=== PATIENT | female | born 1990 | race Caucasian/White ===

== ENCOUNTER → 2018-06-23 | Outpatient (CLI) | payer OTHER ==
[~2018-06-23] MED LIST: CALC-5 PO; PRENTAB26 PO; PRLSR20 PO
[2018-06-23 14:44] LABS: BASO % 0.2 %; BASO ABS # 0.02 K/uL (0-0.2); EOS % 1.6 %; EOS ABS # 0.14 K/uL (0-0.5); HEMATOCRIT 34.3 % (37-47); HEMOGLOBIN 10.9 g/dL (12.0-16.0); IG# 0.02 K/uL (0.00-0.02); LYMPH % 23.7 %; LYMPH ABS # 2.09 K/uL (1.2-3.4); MEAN CELL VOLUME 81.1 fL (80-100); MEAN CORPUSCULAR HEMOGLOBIN 25.8 pg (25-34); MONO % 5.2 %; MONO ABS # 0.46 K/uL (0.11-0.59); NEUT % 69.1 %; PLATELET COUNT 293 K/uL (130-400); RED CELL DISTRIBUTION WIDTH CV 26.5 % (11.5-14.5); RED CELL DISTRIBUTION WIDTH SD 73.3 fL (36.4-46.3); WHITE BLOOD COUNT 8.83 K/uL (4.8-10.8)
[2018-06-23 15:01] LABS: MEAN CORPUSCULAR HGB CONC 31.8 g/dl (32-36)
== END | disposition home or self-care (01) ==
LOC: C.LAB 14:22
PROVIDERS: ATTEND Internal Medicine Hematology
DX: D50.9 Iron deficiency anemia, unspecified (principal); E53.8 Deficiency of other specified B group vitamins

== ENCOUNTER 2024-07-15 05:31 | Inpatient (IN) ==
--- NOTE | 2024-07-09 10:35 | Anesthesiology Consultation ---
Date of Service July 09, 2024 Assessment & Plan (1) Encounter for pre-operative examination: Infectious disease screening: Per assessment on 07/09/24: No known recent infectious disease contacts or current infectious disease symptoms. Chart Review Chart Review: investigator operator initiated History Surgery Operation Date: 07/15/24 07:30 Proposed Procedures p Repeat Section, - Horacio Martin MD s With Bilateral Tubal Ligation - Horacio Martin MD Height/Weight Height: 5 ft 2 in Weight: 122.016 kg Allergies Allergy/AdvReac Type Severity Reaction Status Date / Time adhesive tape Allergy Severe Verified 07/09/24 09:40 tape caused blisters No Known Drug Allergies Allergy Verified 07/09/24 09:40 Medications Home Medications Medication Instructions Recorded Confirmed Last Taken omeprazole magnesium 20 mg 20 mg PO DAILY PRN Acid Reflux 07/15/18 07/09/24 Unknown tablet,delayed release (Prilosec OTC) pediatric multivitamin no.76 1 tab PO QAM 12/04/19 07/09/24 Unknown (Flintstones Complete chewable tablet) phentermine 15 mg capsule 30 mg (2 x 15 mg) PO DAILY #60 caps 02/19/23 07/09/24 Unknown cholecalciferol (vitamin D3) 1,250 1,250 mcg PO .COMPLEX #48 caps 04/17/23 07/09/24 Unknown mcg (50,000 unit) capsule levothyroxine 125 mcg tablet 125 mcg PO QAM 07/09/24 07/09/24 Unknown Past Medical History Medical History (Updated 07/09/24 @ 10:34 by Estela Martinez) GERD (gastroesophageal reflux disease) Rare, Prilosec PRN History of COVID-19 2020: headache and fatigue > resolved Hypothyroidism Iron deficiency anemia Last iron infusion 06/22/24 ([facility] infusion center) Osteoarthritis Post thyroiditis (2018) Thyroid nodule Benign, monitoring Past Family History Family History Grandmother Diabetes mellitus, type 2 Thyroid disorder Grandfather Diabetes mellitus, type 2 Myocardial infarction Cancer Father Diabetes mellitus, type 2 Aunt Ovarian cancer Other No family history of adverse response to anesthesia Denies family history of Prostate cancer Breast cancer Colorectal cancer Past Surgical History Surgical History H/O gastric bypass 2009 Previous section 2016 S/P thyroid biopsy benign nodule Social History Smoking Status: Never smoker Do You Dip or Chew Tobacco: No Hx Alcohol Use: No Alcohol type: wine Hx Substance Use: No Testing Laboratory Results 06/09/24 WBC 11.49 H/H 9.9/33.8 PLATELETS 275 IRON 33 IRON BINDING CAPACITY 489 TRANSFERRIN SAT PERCENT 7 FERRITIN 8 CREATININE 0.7
[2024-07-15] MEDS ORDERED: SODIUM CHLORIDE 0.9% 250 ML IV PRN (06:03)
[2024-07-15] MEDS: LACTATED RINGER'S 1,000 ML IV SCH (06:10)
[2024-07-15 06:15] LABS: Hematocrit (blood only) 35.8 % (37.0-47.0); Hemoglobin 11.3 g/dl (12.0-16.0); Mean Corpuscular Hemoglobin 26.6 pg (25.0-34.0); Mean Corpuscular Hgb Conc 31.6 g/dL (32.0-36.0); Mean Corpuscular Volume 84.2 fL (80.0-100.0); Mean Platelet Volume 9.4 fL (9.4-12.4); Platelet Count 278 K/uL (130-400); RDW Coefficient of Variation 19.9 % (11.5-14.5); RDW Standard Deviation 59.2 fL (36.4-46.3); Red Blood Count 4.25 M/uL (4.20-5.40); White Blood Count 9.45 K/ul (4.8-10.8)
[2024-07-15] MEDS: ACETAMINOPHEN 500 MG TAB PO SCH (06:29)
[2024-07-15] MEDS ORDERED: LACTATED RINGER'S 1,000 ML IV SCH ×2 (06:45→10:00)
[2024-07-15] MEDS ORDERED: ONDANSETRON INJ 2 MG/ML 2 ML VIAL ONE (06:48)
[2024-07-15] MEDS ORDERED: ePHEDrine sulfate 50 MG/5 ML SYR ONE (06:48)
[2024-07-15] MEDS ORDERED: KETOROLAC 30 MG/ML VIAL ONE (06:48)
[2024-07-15] MEDS ORDERED: DEXAMETHASONE SOD INJ 4 MG/ML VIAL ONE (06:48)
[2024-07-15] MEDS ORDERED: OXYTOCIN 10 UNITS/ML VIAL ONE (06:48)
[2024-07-15] MEDS ORDERED: PHENYLEPHRINE 100MCG/ML 10ML SYR IV ONE (06:48)
[2024-07-15] MEDS ORDERED: MoRPHine SULFATE PF 1 MG/ML 10 ML AMP/VIAL ONE (06:48)
[2024-07-15] MEDS ORDERED: fentaNYL citrate PF 100 MCG/2 ML VIAL ONE (06:48)
--- OUTSIDE RECORDS SUMMARY | 2024-07-15 07:05 | External Medical Summary | Summary of Care ---
Author Name Unknown Organization [facility] Address [address] [place] [address] Phone [phone] Care Team Providers Care Inventory Checker Name Role Phone Maldonado Latif Primary Care Provider Reason for Visit * Reason Comments Return Visit Encounter Details Date Type Department Care Team (Late st Contact Info) Description 07/03/2024 9:30 AM EDT Office Visit Gynecology/Obstetric s [facility] [address] [place] [phone] Anil Reyes MD [address] [place] [phone] Ally Mckeon Stress Tests [facility] [address] [facility] [place] [address] Supervision of high risk in third trimester*; Obesity in , antepartum; Hypothyroidism affecting in third trimester; Previous gastric bypass affecting , antepartum; Previous delivery, antepartum condition or complication; Antepartum anemia complicating Allergies No known active allergiesdocumented as of this encounter (statuses as of 07/03/2024) Medications Medication Sig Dispensed Refills Start Date End Date Status Pediatric Wuqzgkif-Idamugtz-L (FLINTSTONES COMPLETE) CHEW Take 1 Tab by mouth 2 times a day. Active Levothyroxine Sodium 25 MCG Oral Tablet (Levo-T) Pt taking 125 mcg 07/12/2020 Active Vitamin D3 1.25 MG (20640 UT) Oral Capsule Take 1 Capsule by mouth once a week. 12/17/2023 Active Gummies 0.18-25 MG Oral Tablet Chewable Take by mouth. Activ e OneTouch Verio Flex System w/Device KitIndications:Superv ision of high risk in second trimester,Previous gastric bypass affecting , antepartum Use to test blood sugars 4 times daily for 7 days, between 26-28 weeks. (fasting, 1 hour after breakfast, lunch, and dinner) 1 Kit 03/18/2024 Active OneTouch Verio In Vitro Strip (Glucose Blood)Indications:Sup ervision of high risk in second trimester,Previous gastric bypass affecting , antepartum Use to test blood sugars 4 times daily (fasting, 1 hour after breakfast, lunch, and dinner) 125 Strip 6 03/18/2024 Active OneTouch Delica Lancets 30GIndications:Superv ision of high risk in second trimester,Previous gastric bypass affecting , antepartum Use to test blood sugars 4 times daily (fasting, 1 hour after breakfast, lunch, and dinner) 200 Each 6 03/18/2024 Active documented as of this encounter (statuses as of 07/03/2024) Active Problems Problem Noted Date Diagnosed Date Antepartum anemia complicating 024 Overview: Referred for iron infusions at 28 wks , supervision, high-risk 12/23/2023 Obesity in , antepartum 12/23/2023 Overview: Pre-gravid BMI is 47.54. Class 3 obesity 1 hour GTT ordered but no yet completed to date Baseline Preeclampsia Labs Lab Results Component Value Date/Time PLATELET AUTO - [facility] 288 12/23/2023 10:21 AM CREATININE - [facility] 0.6 12/23/2023 10:21 AM AST - [facility] 19 12/23/2023 10:21 AM ALT - [facility] 10 12/23/2023 10:21 AM PROTEIN/ CREATININE RATIO, URINE - [facility] 65 12/23/2023 10:45 AM Last Assessment & Plan: I reviewed the ultrasound. The overall estimated weight is consistent with the 53rd percentile for the gestational age and the anatomy that was visualized appears unremarkable. The amniotic fluid volume is normal at 14 cm and the fetus is in the transverse presentation. As the patient is currently 36 weeks of gestation, there is clinically no indication for return. 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 Was seen in the past by [facility] (last visit 07/2020) Thyroid ultrasound reveal small thyroid nodule Managed with Levothyroxine 25 mcg daily Lab Results Component Value Date/Time TSH - [facility] 1.29 04/29/2024 08:24 AM TSH - [facility] <0.01 (L) 12/03/2018 03:50 PM Last Assessment & Plan: ,TSH Results: Lab Results Component Value Date/Time TSH - [facility] 1.29 04/29/2024 08:24 AM TSH - [facility] 1.32 01/20/2024 02:47 PM TSH - [facility] 1.38 12/23/2023 10:21 AM TSH - [facility] <0.01 (L) 12/03/2018 03:50 PM TSH - [facility] 1.49 05/18/2016 08:14 AM TSH - [facility] 0.56 12/15/2014 08:22 AM TSH - [facility] 2.300 09/08/2020 12:00 AM TSH - [facility] 1.590 03/26/2019 12:00 AM TSH - [facility] 3.600 02/23/2019 12:00 AM Previous gastric bypass affecting , ant epartum 12/23/2023 Overview: The patient is s/p laprascopic gastric bypass at [facility] on May 19, 2009. Last seen by nutrition Nov 2019 Last Assessment & Plan: CONSIDERATIONS: Explained to patient that weight loss after bariatric surgery often leads to greater fertility and a decreased risk for the obstetric complications. Explained that it is recommended to delay for 12 to 24 months after bariatric surgery to avoid during the period of rapid weight loss. Women with a gastric band should be monitored during because the band may need to be adjusted. In there may be a delay in diagnosis of bariatric-related operative complications, including anastomotic leaks, bowel obstructions, internal hernias, ventral hernias, band erosion, and band migration. Therefore, all gastrointestinal problems such as nausea, vomiting, and abdominal pain should be thoroughly evaluated with involvement of the bariatric surgeon because the underlying pathology may be related to the bariatric surgery, not the itself. Discussed the most common nutritional deficiencies after gastric bypass surgery to include protein, iron, vitamin B12, folate, vitamin D, and calcium. RECOMMENDATIONS: Vitamin supplements recommended for the woman with a history of bariatric surgery are as follows: - vitamin daily with 1mg of folic acid -Vitamin B12 IM injection 1000mcg monthly -Vitamin D 800 IU daily -Calcium citrate 9484-1509 mg daily (better absorbed than calcium carbonate) -Ferrous fumarate 325 mg daily (taken with vitamin C to improve absorption and acidify the stomach). -If patient has persistent vomiting, then add thiamine 50mg daily. Other nutritional information to consider: -Protein intake of 60 g daily is recommended. -Excess vitamin A consumption during is associated with defects. Vitamin A should be limited to less than 5,000 IU per day during . Vitamins with beta-carotene, the pre-form Vitamin A which is not teratogenic, are preferred. Recommend nutrition referral to help the patient adhere to dietary regimens and to cope with the physiologic changes of . Recommend Maternal Medicine anatomy ultrasound at 19-20 weeks and serial growth assessments every 4 weeks after 24 weeks. Patients with a history of gastric bypass often cannot tolerate the gestational diabetes screen secondary to dumping syndrome. Therefore, as an alternative screening method, we recommend monitoring fasting and 1-hour postprandial blood sugars for one week between 24-28 weeks of gestation. Bariatric surgery should not alter the course of labor and delivery, and therefore, it does not significantly affect its management. Bariatric surgery itself should not be considered as an indication for delivery. Patients with history of bariatric surgery within past two years should notify their bariatric surgeon. Consider pre-labor consultation with bariatric surgeon if extensive abdominal surgery was performed. Previous delivery, antepartum condition or complication 12/23/2023 Overview: 2016 Primary LTCS, post dates, due to arrest of dilatation 2017 2023 Plan: undecided at this time Intestinal postoperative nonabsorption 0 Hypothyroidism 11/27/2019 Iron deficiency anemia 12/08/2018 Estimated Date of Delivery Comme nts Yes 07/19/2024 Based on Ultraso und documented as of this encounter (statuses as of 07/03/2024) Resolved Problems Problem Noted Date Diagnosed Date Resolved Date with 11 completed weeks gestation 01/02/2024 06/16/2024 H/O section 12/02/2017 018 Overview: Desires TOLAC. Dilated to 9.5 cm with IOL/Cervidil x 2 and Pitocin, OP presentation and intolerance. Baby 8lb 6 oz, boy at 41w 6d. Body mass index (BMI) of 40. 0 to 44.9 in adult 08/12/2017 12/02/2017 Overview: Per Obesity protocol #1 Vitamin D deficiency 12/20/2015 016 Overview: Dec 2014 = 12. Took 50,000 weekly for 12 weeks. Will recheck level now and suggest total 2000 IU daily. Antepartum anemia complicating 11/23/2015 07/15/2018 Overview: 8.3/27.2 at 27w4d. Suggest iron BID, high iron foods, recheck CBC in 4-6 wks. Iron studies underway. Refer to hematology and nutrition. Per Hematology: In summary, she is a 27-year-old female, sees for the 2nd time, now has evidence of iron deficiency, she is on oral iron replacement therapy, she also had low level of vitamin B12 earlier, had a gastric bypass surgery in the past, recently she is not on B12 replacement therapy. She will receive IV iron the form of Venofer every weekly x 4. Will check B12 level, if she has low level, she will have parenteral vitamin B12 injection at home by herself. Will check CBCD, ferritin, iron profile about 4 weeks after the last IV iron therapy and then every 6 monthly. Will see her back in the clinic about 6 months. Lalito Villanueva MD Hem/Onc , normal first 07/27/201502/10 Overview: Baby boy "Brandon". Received tDap 01/04/2016 Delmis Hernandez, JULIAN H/O gastric bypass 07/27/2015 8 Overview: 2009 Obesity, Class II, BMI 35-39 .9, isolated (see actual BMI) 07/27/2015 07/15/2018 Overview: Early glucola-could not tolerate 1hr gtt with last Growth u/s every 6-8 weeks after 24wk Growth sono @29w3d 1303gm, ADRIENNE 18.6cm; BREECH TDAP given 04/10/2018 Aliyah Witt RN BMI 34.0-34.9,adult 08/15/20 17 Overview: Per Obesity protocol #1 documented as of this encounter (statuses as of 07/03/2024) Immunizations Name Administration Dates Next Due HPV Vaccine, 4-Valent 04/11/2014,01/09/2014,11/2003 Seasonal Influenza, Quadriva lent, No Preserve, IM 09/11/2018 Seasonal Influenza, Split, I IV3, No Preserve, Inj 09/11/2013 Seasonal Influenza, Split, I IV3, With Preserve, Inj 07/23/2016,08/25/2014 TDAP (age 10 and older)(Boostrix) 2023,04/10/2018,01/04/2016,08/11/20 13 documented as of this encounter Social History Tobacco Use Types Packs/Day Years Used Date Smoking Tobacco: Never Smokeless Tobacco: Never Alcohol Use Standard Drinks/Week Comments Not Currently 0 (1 standard drink = 0.6 oz pur e alcohol) PHQ-2 Answer Date Recorded PHQ-2 Score 0 09/22/2020 Hunger Vital Sign Answer Date Recorded Within the past 12 months, y ou worried that your food would run out before you got the money to buy more. Never true 02/06/20 24 Within the past 12 months, t he food you bought just didn't last and you didn't have money to get more. Never true 02/06/2024 Tucker Depression Scale Answer Date Recorded Tucker Depression Scale Total 0 05/27/2024 The thought of harming myself has occurred to me . Never 05/27/2024 Childcare Answer Date Recorded Do you feel overwhelmed with taking care of a child, family member or friend? No 02/06/2024 Does your family need help f inding childcare? (Household - for ages 0-17 years) Not on file 02/06/2024 Clothing Answer Date Recorded Have you been unable to get clothing when it was really needed? No 02/06/2024 Is your family able to get c lothes or diapers when needed? (Household - for ages 0-17 years) Not on file 02/06/2024 Personal Safety Answer Date Recorded Do you feel unsafe or have concerns for your saf ety? No 02/06/2024 Do you have concerns for you r family's safety? (Household - for ages 0-17 years) Not on file 02/06/2024 Utilities Answer Date Recorded Do you have trouble paying y our heating, water, or electric bill? No 02/06/2024 Is your family able to pay t he heat, water, or electric bill? (Household - for ages 0-17 years) Not on file 02/06/2024 Does your family have access to good internet? (Household - for ages 0-17 years) Not on file 02/06/2024 Employment Status Answer Date Recorded Are you unemployed or without regular income? No 02/06/2024 Does the household have a re lar source of income? (Household - for ages 0-17 years) Not on file 02/06/2024 Social Connections Answer Date Recorded How often do you feel lonely or isolated from th ose around you? Never 02/06/2024 Financial Resource Strain Answer Date R ecorded Do you have any trouble payi ng for your medications, or do you think you might in the future? No 02/06/2024 Does your family have troubl e paying for medicine? (Household - for ages 0-17 years) Not on file 02/06/2024 Transportation Needs Answer Date Record ed READ ONLY Do you have troubl e getting a ride to medical visits or work? Never True 02/06/2024 Does your family have a hard time getting a ride to doctors visits? (Household - for ages 0-17 years) Not on file 02/06/2024 Has lack of transportation k ept you from medical appointments, meetings, work, or from getting things needed for daily living? Check all that apply. (Adult - for ages 18 years and over) Not on file 02/06/2024 Do you (or your family) have trouble finding or paying for a ride (transportation)? (Household - for ages 0-17 years) Not on file 02/06/2024 Housing Stability Answer Date Recorded Do you currently live in a s helter or have no steady place to sleep at night? No 02/06/2024 READ ONLY Do you think you a re at risk of becoming homeless? No 02/06/2024 Does your family worry about paying for your home or becoming homeless? (Household - for ages 0-17 years) Not on file 0 02/06/2024 Are you homeless or worried that you might be in the future? (Adult - for ages 18 years and over) Not on file Are you (or your family) janee eless or worried that you might be in the future? (Household - for ages 0-17 years) Not on file Food Insecurity Answer Date Recorded Do you need food for this week? No 02/06/2024 Are you able to get enough f ood for your family? (Household - for ages 0-17 years) Not on file 02/06/2024 Does your family need food t his week? (Household - for ages 0-17 years) Not on file 02/06/2024 Do you always have enough fo od for your family? (Household - for ages 0-17 years) Not on file 02/06/2024 Estimated Date of Delivery Comme nts Yes 07/19/2024 Based on Ultraso und Sex and Gender Information Value Date Recorded Sex Assigned at Female 12/02/2023 12:59 PM EST Gender Identity Female 12/02/2023 12:59 PM EST Sexual Orientation Straight 12/02/2023 12 :59 PM EST Job Start Date Occupation Industry Not on file Not on file Not on file documented as of this encounter H&P Notes * Anil Reyes MD - 07/03/2024 10:34 AM EDT [address] [address] Appt line [phone] Pt is a 34 year old at 37w5d Patient is . Estimated Date of Delivery: 07/19/24 Patient is here for Preop appointment. is complicated by the following. One elevated BMI 2. Breech presentation. 3. Patient wishes to have permanent sterilization. OB History Para Term AB Living 3 2 2 0 0 2 SAB IAB Ectopic Multiple Live Births 0 0 0 0 2 # Outcome Date GA Lbr Navid/2nd Weight Sex Type Anes PTL Lv 3 Current 2 Term 07/15/18 41w1d 3.104 kg (6 lb 13.5 oz) F EPI N ROSA Comments: Low iron, recieved iron infusions / Induced due to post dates 1 Term 03/01/16 40w6d 3.374 kg (7 lb 7 oz) M CS-Unspec EPI, Spinal ROSA Comments: due to FTP / induced due to 41w Complications: Intolerance, Failure to Progress in First Stage Obstetric Comments Adopted son Daniel - born late 2022 2015, 2018: FOB #1: Mihir, age 30, healthy, no other children Date Labor Sex Delivery Anesth Del Comments GA Length Weight Type 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 Denies h/o STDs and abnormal Paps. Her past medical/surgical histories and current medications are recorded in the electronic record. Past Surgical History: Procedure Laterality Date DELIVERY 03/01/2016 COLPOSCOPY OF CERVIX W/BIOPSY 01/19/15 normal CTA CHEST NON-CORONARY W CONTRAST 12/21/13 no PE, operative changes related to gastric bypass surgery GASTRIC BYPASS FOR OBESITY 2008 [place] Family History Problem Relation Name Age of Onset Diabetes Mother Diabetes Father No Known Problems Sister No Known Problems Sister No Known Problems Brother Diabetes Grandmother (Maternal) Thyroid Disorder Grandmother (Paternal) Diabetes Grandfather (Paternal) Pancreatic cancer Grandfather (Paternal) Heart attack Grandfather (Paternal) No Known Problems Daughter No Known Problems Son Cervical Cancer Aunt (Paternal) Thyroid Disorder Aunt (Paternal) History Social History Socioeconomic History Marital status: Spouse name: Not on file Number of children: Not on file Years of education: Not on file Highest education level: Not on file Occupational History Occupation: business unit leader Employer: [employer] Tobacco Use Smoking status: Never Smokeless tobacco: Never Substance and Sexual Activity Alcohol use: Not Currently Drug use: No Sexual activity: Yes Partners: Male Other Topics Concern Not on file Social History Narrative Not on file Social Determinants of Health Financial Resource Strain: Low Risk (02/06/2024) Financial Resource Strain Do you have any trouble paying for your medications, or do you think you might in the future? (Adult - for ages 18 years and over): No Does your family have trouble paying for medicine? (Household - for ages 0-17 years): Not on file Food Insecurity: No Food Insecurity (02/06/2024) Food Insecurity Do you need food for this week? (Adult - for ages 18 years and over): No Are you able to get enough food for your family? (Household - for ages 0-17 years): Not on file Does your family need food this week? (Household - for ages 0-17 years): Not on file Do you always have enough food for your family? (Household - for ages 0-17 years): Not on file Transportation Needs: No Transportation Needs (02/06/2024) Transportation Needs Do you have trouble getting a ride to medical visits or work? (Adult - for ages 18 years and over):Never True Does your family have a hard time getting a ride to doctors visits? (Household - for ages 0-17 years): Not on file Has lack of transportation kept you from medical appointments, meetings, work, or from getting things needed for daily living? Check all that apply. (Adult - for ages 18 years and over): Not on file Do you (or your family) have trouble finding or paying for a ride (transportation)? (Household - for ages 0-17 years): Not on file Social Connections: Socially Integrated (02/06/2024) Social Connections How often do you feel lonely or isolated from those around you? (Adult - for ages 18 years and over): Never Housing Stability: Low Risk (02/06/2024) Housing Stability Do you currently live in a halfway or have no steady place to sleep at night? (Adult - for ages 18 years and over): No Do you think you are at risk of becoming homeless? (Adult - for ages 18 years and over): No Does your family worry about paying for your home or becoming homeless? (Household - for ages 0-17 years): Not on file Are you homeless or worried that you might be in the future? (Adult - for ages 18 years and over): Not on file Are you (or your family) homeless or worried that you might be in the future? (Household - for ages0-17 years): Not on file @[facility]@ Physical Exam: LMP 10/02/2023 (Approximate) CV: S1, S2. Regular rate and Rhythm Lungs: Clear to auscultation bilaterally. Abdomen: Soft with a gravid uterus and no palpable contractions. Fundal Height: 37cms heart rate: 140/min Extremities: Soft non tender calves bilaterally. Bedside sono: breech A/P: 34 year old year old The 1. Breech presentation 2. Prior section 3. Elevated BMI 4. Wishes to have permanent sterilization We have discussed the risk alternatives and complications of surgery including more surgery to correct complication,risk of anesthesia,infection,damage to internal organs and . We have also discussed the possibility that pt's present situation may not change. Pt is aware and wishes to proceed to surgery. Consent is signed Pt is scheduled for Repeat c/sec and bilateral; salpingentomy Anil Reyes MD 07/03/2024 10:34 AM documented in this encounter Plan of Treatment Upcoming Encounters Date Type Department Care Team (Late st Contact Info) Description 07/10/2024 10:00 AM EDT Office Visit Gynecology/Obstetrics Cristino Mckeon [address] [place] [phone] Collette Cervantes CRNP [address] [phone] Mike, Non Stress Tests Roland [address] [place] [phone] 07/22/2024 1:30 PM EDT Office Visit Gynecology/Obstetrics Cristino Mckeon [address] [place] [address] Mendy Upton PA-C [address] [place] [phone] Health Maintenance Due Date Last Done Comments Hepatitis B Vaccine (1 of 3 - 19+ 3-dose series) 2009 HPV/Co-Test 2020 Depression Screening 09/20/2021 09/20/2020 COVID-19 Vaccine (2022-24 season) 2023 Cervical Cancer Screening 09/22/2023 Pap Smear 09/22/2023 09/22/2020, 10/11, 10/18/2016, Additional history exists Influenza Vaccine (FLU shot) (#1) 2024 09/11/2018, 07/23/2016, 08/25/2014, Additional history exists TSH 04/29/2025 04/29/2024, 01/09, 12/23/2023, Additional history exists DTaP,Tdap,and Td Vaccines (5 - Td or Tdap) 04/29/2034 04/29/2024, 04/10/2018, 01/04/2016, Additional history exists MENINGOCOCCAL (MENACTRA/MENVEO) Aged Out 06/11/2006 No longer eligible based on patient's age to complete this topic HPV (Gardasil) Vaccine Completed , 01/09/2014, 07/15/2007, Additional history exists Pneumococcal Vaccine: Pediatrics (0 to 5 Years) and At-Risk Patients (6 to 64 Years) Aged Out No longer eligible based on patient's age to complete this topic documented as of this encounter Medical Devices Not on filedocumented as of this encounter Visit Diagnoses Diagnosis Supervision of high risk in third trimester- Primary Unspecified high-risk Obesity in , antepartum Obesity complicating , childbirth, or the puerperium, antepartum condition or complication Hypothyroidism affecting in third trimester Previous gastric bypass affecting , antepartum Previous delivery, antepartum condition or complication Antepartum anemia complicating Anemia, antepartum documented in this encounter Care Teams Inventory Checker Relationship Specialty Start Date End Date Maldonado Latif CRNP [address] [address] PCP - General Nurse Practitioner 03/10/21 documented as of this encounter
--- OUTSIDE RECORDS SUMMARY | 2024-07-15 07:05 | External Medical Summary | Summary of Care ---
Author Name Unknown Organization [facility] Address [address] [place] [address] Phone [phone] Care Team Providers Care Mild Disabilities Teacher Name Role Phone Maldonado Latif Primary Care Provider Encounter Details Date Type Department Care Team (Late st Contact Info) Description 06/24/2024 Orders Only PATIENT PORTAL DO NOT DELETE THIS DEPT [id number] Allergies No known active allergiesdocumented as of this encounter (statuses as of 06/24/2024) Medications Medication Sig Dispensed Refills Start Date End Date Status Pediatric Yrskygsi-Qzqenxhg-B (FLINTSTONES COMPLETE) CHEW Take 1 Tab by mouth 2 times a day. Active Levothyroxine Sodium 25 MCG Oral Tablet (Levo-T) Pt taking 125 mcg 07/12/2020 Active Vitamin D3 1.25 MG (88376 UT) Oral Capsule Take 1 Capsule by [...] and dinner) 125 Strip 6 03/18/2024 Active Lasha Dean 30GIndications:Superv ision of high risk in second trimester,Previous gastric bypass affecting , antepartum Use to test blood sugars 4 times daily (fasting, 1 hour after breakfast, lunch, and dinner) 200 Each 6 03/18/2024 Active documented as of this encounter (statuses as of 06/24/2024) Active Problems Problem Noted Date Diagnosed Date [...] overall estimated weight is consistent with the 34th percentile for the gestational age and the amniotic fluid volume is normal at 20 cm. The anatomy that was visualized appears unremarkable. 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 Last seen by [...] -Vitamin D 800 IU daily -Calcium citrate 3586-7646 mg daily (better absorbed than calcium carbonate) [...] as of this encounter (statuses as of 06/24/2024) Resolved Problems Problem Noted Date Diagnosed Date [...] Baby boy "Brandon". Received tDap 01/04/2016 Delmis Hernandez RN H/O gastric bypass 07/27/2015 8 Overview: 2009 [...] as of this encounter (statuses as of 06/24/2024) Immunizations Name Administration Dates Next Due HPV [...] money to get more. Never true 02/06/2024 [place] Depression Scale Answer Date Recorded [place] Depression Scale Total 0 05/27/2024 The thought [...] 02/06/2024 Does the household have a re gular source of income? (Household - for ages [...] on file documented as of this encounter Plan of Treatment Upcoming Encounters Date Type Department Care Team (Late st Contact Info) Description 06/24/2024 10:00 AM EDT Pharmacy Pharmacy, [address] [address] Clinic, [facility] [address] [place] [address] 06/24/2024 2:30 PM EDT Office Visit Electrical Prospecting Observer Obstetrics Maternal Medicine, [place] [address] [place] [address] Eleazar Iverson MD [address] [place] [address] 06/24/2024 2:30 PM EDT Imaging Radiology [facility], [place] [address] [place] [address] 06/25/2024 11:45 AM EDT Office Visit Gynecology/Obstetrics [facility] [address] [facility] [place] [address] Collette Cervantes CRNP [address] [place] [address] Ally Mckeon Stress Tests [place] [address] [place] [address] 07/03/2024 9:30 AM EDT Office Visit Gynecology/Obstetrics Cristino Mckeon [address] [place] [address] Anil Reyes MD [address] [place] [address] Ally Mckeon Stress Tests [place] [address] [place] [address] 07/22/2024 1:30 PM EDT Office Visit Gynecology/Obstetrics Cristino Mckeon [address] [place] [address] Mendy Upton PA-C [address] [place] [address] Health Maintenance Due Date Last Done Comments [...] Not on filedocumented as of this encounter Care Teams Mild Disabilities Teacher Relationship Specialty Start Date End Date Maldonado Latif CRNP [address] [facility] [address] [place] [address] PCP - General Nurse Practitioner 03/10/21 documented as of this encounter
--- OUTSIDE RECORDS SUMMARY | 2024-07-15 07:05 | External Medical Summary | Summary of Care ---
Author Name Unknown Organization [facility] Address [address] [place] [address] Phone [phone] Care Team Providers Care Hydraulic Press Operator Name Role Phone Maldonado Latif Primary Care Provider Reason for Visit * Reason Comments Return Visit Non Stress Test Encounter Details Date Type Department Care Team (Late st Contact Info) Description 06/25/2024 11:45 AM EDT Office Visit Gynecology/Obstetric s [facility] [address] [place] [address] Collette Cervantes CRNP [address] [facility] [address] Mike Non Stress Tests [place] [address] [facility] [place] [address] Supervision of high risk in third trimester*; Obesity in , antepartum; Hypothyroidism affecting in third trimester; Previous gastric bypass affecting , antepartum; Previous delivery, antepartum condition or complication; Antepartum anemia complicating Allergies No known active allergiesdocumented as of this encounter (statuses as of 06/25/2024) Medications Medication Sig Dispensed Refills Start Date End Date Status Pediatric Kwdkcjvw-Loerlayu-W (FLINTSTONES COMPLETE) CHEW Take 1 Tab by mouth 2 times a day. Active Levothyroxine Sodium 25 MCG Oral Tablet (Levo-T) Pt taking 125 mcg 07/12/2020 Active Vitamin D3 1.25 MG (53936 UT) Oral Capsule Take 1 Capsule by [...] and dinner) 125 Strip 6 03/18/2024 Active Ciris EnergyTouch Delica Lancets 30GIndications:Superv ision of high risk in second trimester,Previous gastric bypass affecting , antepartum Use to test blood sugars 4 times daily (fasting, 1 hour after breakfast, lunch, and dinner) 200 Each 6 03/18/2024 Active documented as of this encounter (statuses as of 06/25/2024) Active Problems Problem Noted Date Diagnosed Date [...] baby Was seen in the past by [facility] Endocrinology (last visit 07/2020) Thyroid ultrasound reveal [...] patient is s/p laprascopic gastric bypass at [facility] on May 19, 2009. Last seen by [...] -Vitamin D 800 IU daily -Calcium citrate 9164-8391 mg daily (better absorbed than calcium carbonate) [...] as of this encounter (statuses as of 06/25/2024) Resolved Problems Problem Noted Date Diagnosed Date [...] as of this encounter (statuses as of 06/25/2024) Immunizations Name Administration Dates Next Due HPV [...] money to get more. Never true 02/06/2024 [place] Depression Scale Answer Date Recorded [place] Depression Scale Total 0 05/27/2024 The thought [...] on file documented as of this encounter Last Filed Vital Signs Vital Sign Reading Time Taken Comments Blood Pressure 122/72 06/25/2024 12:22 PM EDT Pulse - - Temperature - - Respiratory Rate - - Oxygen Saturation - - Inhaled Oxygen Concentration - - Weight 126.6 kg (279 lb) 06/25/2024 12:22 PM EDT Height - - Body Mass Index 51.03 01/20/2024 1:34 PM EDT documented in this encounter Progress Notes * Rachell Salmon MED ASSIST - 06/25/2024 12:22 PM EDT Patient present for NST/AMADOU Loss of some mucus. * Collette Cervantes CRNP - 06/25/2024 11:53 AM EDT 36w4d No concerns. Reviewed blood sugars- had been advised to check because of polyhydramnios on prior u/s. All values in range. U/s with MFM yesterday, ADRIENNE normal. Baby is active. No contractions, bleeding, LOF. Has repeat c/s with BTL scheduled. GBS and cervical check today. Check Writer Documentation Provider requested optical element coater. Name of optical element coater: Daniela ASSESSMENT assessment with Non-stress Test completed on 06/25/2024 at 36.4weeks gestation for indication of obesity heart baseline: 150 bpm Variability: Moderate Decelerations: absent Accelerations: present Contractions: None NST start time: 1224 NST stop time: 1256 NST strip reviewed, interpreted, and approved by OB provider, PRISCILLA Luo . NST strip stored in clinic storage file documented in this encounter Plan of Treatment Upcoming Encounters Date Type Department Care Team (Late st Contact Info) Description 07/03/2024 9:30 AM EDT Office Visit Gynecology/Obstetrics Cristino Mckeon [address] [place] [address] Anil Reyes MD [address] [place] [address] Ally Mckeon Stress Tests [place] [address] [place] [address] 07/22/2024 1:30 PM EDT Office Visit Gynecology/Obstetrics Cristino Mckeon [address] [place] [address] Mendy Upton PA-C [address] [place] [address] Pending Results Name Type Priority Associated Diagnoses Date /Time GROUP B STREP CULTURE/PCR Lab Routine Supervision of high risk in third trimester 06/25/2024 12:38 PM EDT Scheduled Orders Name Type Priority Associated Diagnoses Orde r Schedule GROUP B STREP CULTURE/PCR Lab Routine Supervision of high risk in third trimester Expected: 06/25/2024, Expires: 06/25/2025 Health Maintenance Due Date Last Done Comments Hepatitis B Vaccine (1 of 3 - 19+ 3-dose series) 2009 HPV/Co-Test 2020 Depression Screening 09/20/2021 09/20/2020 COVID-19 Vaccine ( season) 2023 Cervical Cancer Screening 09/22/2023 Pap [...] antepartum documented in this encounter Care Teams Hydraulic Press Operator Relationship Specialty Start Date End Date Maldonado Latif CRNP [address] [address] PCP - General Nurse Practitioner 03/10/21 documented as of this encounter
--- OUTSIDE RECORDS SUMMARY | 2024-07-15 07:05 | External Medical Summary | Summary of Care ---
Author Name Unknown Organization [facility] Address [address] [place] [address] Phone [phone] Care Team Providers Care Client Service And Consulting Manager Name Role Phone Maldonado Latif Primary Care Provider Reason for Visit * Reason Comments IV Therapy Infed Encounter Details Date Type Department Care Team (Latest Contact Info) Description 06/22/2024 1:00 PM EDT Hem/Onc Treatment Hematology/Oncology Treatment, [address] [address] Mire[place], Chair 1 Hem Onc [address] [address] Iron deficiency anemia, unspecified iron deficiency anemia type* Allergies No known active allergiesdocumented as of this encounter (statuses as of 06/22/2024) Medications Medication Sig Dispensed Refills Start Date End Date Status Pediatric Hdhhtvnl-Iwzjvpbc-E (FLINTSTONES COMPLETE) CHEW Take 1 Tab by mouth 2 times a day. Active Levothyroxine Sodium 25 MCG Oral Tablet (Levo-T) Pt taking 125 mcg 07/12/2020 Active Vitamin D3 1.25 MG (61617 UT) Oral Capsule Take 1 Capsule by [...] lunch, and dinner) 1 Kit 03/18/2024 Active Easy FoodTouch Verio In Vitro Strip (Glucose Blood)Indications:Sup ervision of high risk in second trimester,Previous gastric bypass affecting , antepartum Use to test blood sugars 4 times daily (fasting, 1 hour after breakfast, lunch, and dinner) 125 Strip 6 03/18/2024 Active Easy FoodTouch Delica Lancets 30GIndications:Superv ision of high risk in second trimester,Previous gastric bypass affecting , antepartum Use to test blood sugars 4 times daily (fasting, 1 hour after breakfast, lunch, and dinner) 200 Each 6 03/18/2024 Active documented as of this encounter (statuses as of 06/22/2024) Active Problems Problem Noted Date Diagnosed Date [...] baby Was seen in the past by [facility] Endocrinology (last visit 07/2020) Thyroid ultrasound reveal [...] patient is s/p laprascopic gastric bypass at [facility] on May 19, 2009. Last seen [...] -Vitamin D 800 IU daily -Calcium citrate 9058-0298 mg daily (better absorbed than calcium carbonate) [...] as of this encounter (statuses as of 06/22/2024) Resolved Problems Problem Noted Date Diagnosed Date [...] as of this encounter (statuses as of 06/22/2024) Immunizations Name Administration Dates Next Due HPV [...] money to get more. Never true 02/06/2024 [place] Depression Scale Answer Date Recorded [place] Depression Scale Total 0 05/27/2024 The thought [...] Sign Reading Time Taken Comments Blood Pressure 114/73 06/22/2024 2:46 PM EDT Pulse 76 06/22/2024 2:46 PM EDT Temperature 37.2 C (99 F) 06/22/2024 1:05 PM EDT Respiratory Rate 16 06/22/2024 1:43 PM EDT Oxygen Saturation 97% 06/22/2024 2:46 PM EDT Inhaled Oxygen Concentration - - Weight - - Height - - Body Mass Index - - documented in this encounter Nursing Notes * Madyson Penaloza RN - 06/22/2024 3:09 PM EDT Goals: Patient will remain free from injury. Possible barriers to meeting goals: ambulation with IV pole Stability of the patient: Moderately stable - low risk of patient condition declining or worsening Summary regarding today's goals: Met: patient without injury during treatment today. Pt tolerated infusion well. No complaints. Discharged in stable condition. * Madyson Penaloza RN - 06/22/2024 1:37 PM EDT Chair 7 Pt here for infed infusion. No complaints. Educated patient about establishing IV access, med administration process, s/s of allergic reaction, layout of treatment room, and use of call ordonez. Patientcommunicated understanding and denied any further questions. Safety and Risk for Injury Patient will remain free from injury. Ensure appropriate safety devices are available. Provide and maintain safe environment. Patient instructed on use of heat in chair. Patient shown how to operate the heat function of the chair and to alert nursing staff if the chair feels too warm. Patient instructed on the risk of potential koenig while using the heat function. documented in this encounter Plan of Treatment Upcoming Encounters Date Type Department Care Team (Late st Contact Info) Description 06/24/2024 10:00 AM EDT Pharmacy Pharmacy, [address] [address] Clinic, [address] [address] 06/24/2024 2:30 PM EDT Office Visit Strapper And Buffer Obstetrics Maternal Medicine, [address] [address] Eleazar Iverson MD [facility] [place] [address] 06/24/2024 2:30 PM EDT Imaging Radiology [facility], [place] [address] [place] [address] 06/25/2024 11:45 AM EDT Office Visit Gynecology/Obstetrics [facility] [address] [place] [address] Collette Cervantes CRNP [address] [place] [address] Mike, Non Stress Tests Roland [address] [place] [address] 07/03/2024 9:30 AM EDT Office Visit Gynecology/Obstetrics Cristino Mckeon [address] [place] [address] Anil Reyes MD [address] [place] [address] Mike Non Stress Tests Roland [address] [place] [address] 07/22/2024 1:30 PM EDT Office Visit Gynecology/Obstetrics Cristino Mckeon [address] [place] [address] Mendy Upton PA-C [address] [place] [address] Scheduled Orders Name Type Priority Associated Diagnoses Orde r Schedule IRON SCREEN, INCLUDING TIBC Lab STAT Iron deficiency anemia, unspecified iron deficiency anemia type Expected: 06/22/2024 (Approximate), Expires: 12/19/2024 CBC WITH WBC DIFFERENTIAL Lab STAT Iron deficiency anemia, unspecified iron deficiency anemia type Expected: 06/22/2024 (Approximate), Expires: 12/19/2024 FERRITIN Lab STAT Iron deficiency anemia, unspecified iron deficiency anemia type Expected: 06/22/2024 (Approximate), Expires: 06/22/2025 Health Maintenance Due Date Last Done Comments Hepatitis B Vaccine (1 of 3 - 19+ 3-dose series) 2009 HPV/Co-Test 2020 Depression Screening 09/20/2021 09/20/2020 COVID-19 Vaccine ( - 2022-24 season) 2023 Cervical Cancer Screening 09/22/2023 Pap [...] as of this encounter Visit Diagnoses Diagnosis Iron deficiency anemia, unspecified iron deficiency anemia type- Primary documented in this encounter Administered Medications Active Administered Medications - up to 3 most recent administrations Medication Order MAR Action Action Date Dose Rate Site EPINEPHrine 1 MG/ML inj 0.3 mg 0.3 mg, Intramuscular, ONCE PRN Other, Hypersensitivity Reaction or Anaphylaxis, Starting on Sat06/22/24 at 1321, Until Sat06/23/24 at 1320, For 24 hours Famotidine (Pepcid) inj 20 mg 20 mg, IV Push, ONCE PRN Other, Hypersensitivity Reaction, Starting on Sat06/22/24 at 1321, Until Sat06/23/24 at 1320, For 24 hours, Give IV push over 2 minutes. hEParin 100 UNIT/ML Lock Flush inj 500 Units 500 Units (5 mL), IV Lock, PRN Other, IV Flush, Starting on Sat06/22/24 at 1321, Until Sat06/23/24 at 1320, For 24 hours, Do not flush if lock, PICC, or central line not in place; IV infusing or unable to flush. Hydrocortisone Sod Suc (PF) (Solu-Cortef) inj 100 mg 100 mg, IV Push, ONCE PRN Other, Hypersensitivity Reaction, Starting on Sat06/22/24 at 1321, Until Sat06/23/24 at 1320, For 24 hours NSS infusion Intravenous, at 50 mL/hr, PRN, Starting on Sat06/22/24 at 1430, Until Discontinued, Maintenance line Start Infusion 06/22/2024 1:23 PM EDT 50 mL/hr oxygen GAS Inhalation, OXYGEN, First dose on Sat06/22/24 at 1600, Until Discontinued, Device/Managed by: Low Flow Device, Goal SPO2 (%): 91-95, Starting Device: Nasal Cannula, Initial Flow Rate (LPM): 2, Lowest Support: Nasal Cannula: Flow 0-6 LPM. Titrate up/down by 1 LPM., Higher Support: Non-Rebreather (NRB) Mask: Minimum of 10 LPM. Titrate to maintain bag inflation., Titration Interval: Q2 minutes and as needed., Notify Provider: For sudden DECREASE in resting SPO2 to less than 85% and when escalating delivery device., Wean patient off Oxygen when the oxygen saturation is greater than or equal to 93% sodium chloride 0.9 % flush central line 10 mL 10 mL, IV Push, PRN Other, IV Flush, Starting on Sat06/22/24 at 1321, Until Sat06/23/24 at 1320, For 24 hours, Do not flush if lock, PICC, or central line not in place; IV infusing or unable to flush. Inactive Administered Medications - up to 3 most recent administrations Medication Order MAR Action Action Date Dose Rate Site Iron Dextran (Infed) 975 mg in NSS 250 mL INFUSION 975 mg, IV Piggyback, ONCE, 1 dose, On Sat06/22/24 at 1445, Administer over 1 Hours, - Administer iron dextran infusion bag over 1 hour - Monitor for infusion reactions with vitals at 30 minutes and 60 minutes after starting the infusion. - If patient develops sign/symptoms of reaction or vital signs outside normal limits: 1) STOP infusion 2) CONTACT physician Start Infusion 06/22/2024 1:45 PM EDT 975 mg 274.5 mL/hr Iron Dextran (Infed) IV Push TEST DOSE 25 mg IV Push, Administer over 0.5 Minutes, -Educate patient on signs/symptoms of infusion reaction -Administer 25 mg test dose of iron dextran before infusion bag -Observe patient for signs/symptoms of reaction with vital signs before test dose, then at 15 minutes after administering the test dose -If patient tolerates test dose with no reaction, proceed with iron dextran infusion -HOLD infusion and contact physician immediately if patient reacts to test dose, ONCE, 1 dose, On 06/22/24 at 1430 Given 06/22/2024 1:24 PM EDT 25 mg documented in this encounter Care Teams Client Service And Consulting Manager Relationship Specialty Start Date End Date Maldonado Latif CRNP [address] [address] PCP - General Nurse Practitioner 03/10/21 documented as of this encounter
--- OUTSIDE RECORDS SUMMARY | 2024-07-15 07:05 | External Medical Summary | Summary of Care ---
Author Name Unknown Organization [facility] Address [address] [place] [address] Phone [phone] Care Team Providers Care Assistant Spa Director Name Role Phone Maldonado Latif Primary Care Provider Reason for Visit * Reason Comments Ultrasound Encounter Details Date Type Department Care Team (Latest Contact Info) Description 06/24/2024 2:30 PM EDT Office Visit Director Payment Obstetrics Maternal Medicine, [place] [address] [place], [place] [id number] Eleazar Iverson MD [address] [place], [place] [id number] Hypothyroidism affecting in third trimester*; Obesity in , antepartum; Previous gastric bypass affecting , antepartum Allergies No known active allergiesdocumented as of this encounter (statuses as of 06/24/2024) Medications Medication Sig Dispensed Refills Start Date End Date Status Pediatric Bomqceqt-Zgjcybdp-Z (FLINTSTONES COMPLETE) CHEW Take 1 Tab by mouth 2 times a day. Active Levothyroxine Sodium 25 MCG Oral Tablet (Levo-T) Pt taking 125 mcg 07/12/2020 Active Vitamin D3 1.25 MG (24549 UT) Oral Capsule Take 1 Capsule by mouth once a week. 12/17/2023 Active Gummies 0.18-25 MG Oral Tablet Chewable Take by mouth. Activ e XRONetTouch TheySayio Flex System w/Device KitIndications:Superv ision of high risk in second trimester,Previous gastric bypass affecting , antepartum Use to test blood sugars 4 times daily for 7 days, between 26-28 weeks. (fasting, 1 hour after breakfast, lunch, and dinner) 1 Kit 03/18/2024 Active Open Source Fooduch Verio In Vitro Strip (Glucose Blood)Indications:Sup ervision of high risk in second trimester,Previous gastric bypass affecting , antepartum Use to test blood sugars 4 times daily (fasting, 1 hour after breakfast, lunch, and dinner) 125 Strip 6 03/18/2024 Active XRONetTouch Delica Lancets 30GIndications:Superv ision of high risk [...] baby Was seen in the past by [facility] Endocrinology (last visit 07/2020) Thyroid ultrasound reveal [...] patient is s/p laprascopic gastric bypass at [facility] on May 19, 2009. Last seen by [...] -Vitamin D 800 IU daily -Calcium citrate 3079-3043 mg daily (better absorbed than calcium carbonate) [...] money to get more. Never true 02/06/2024 [place] Depression Scale Answer Date Recorded [place] Depression Scale Total 0 05/27/2024 The thought [...] No 02/06/2024 Does the household have a [facility] arbor[facility] source of income? (Household - for ages [...] on file documented as of this encounter Progress Notes * Eleazar Iverson MD - 06/24/2024 2:41 PM EDT MATERNAL MEDICINE VISIT Blanca Simms is at 36w3d who presents to [facility] for an ultrasound and follow-up of her high risk . The patient is currently 36 weeks and 3 days gestation with class 3 obesity and history of gastric bypass surgery. She comes in for an evaluation of growth. She is being seen today by Maternal- Medicine for the following reasons: Problem List Items Addressed This Visit Obesity in , antepartum I reviewed the ultrasound. The overall estimated weight is consistent with the 53rd percentile for the gestational age and the anatomy that was visualized appears unremarkable. The amniotic fluid volume is normal at 14 cm and the fetus is in the transverse presentation. As the patient is currently 36 weeks of gestation, there is clinically no indication for return. Hypothyroidism affecting - Primary Previous gastric bypass affecting , antepartum Thank you for allowing us to participate in the care of this patient. Please call with any questions. Eleazar Iverson MD 06/24/2024 2:41 PM documented in this encounter Miscellaneous Notes * Assessment & Plan Note - Eleazar Iverson MD - 06/24/2024 3:25 PM EDT Associated Problem(s): Obesity in , antepartum I reviewed the ultrasound. The overall estimated weight is consistent with the 53rd percentile for the gestational age and the anatomy that was visualized appears unremarkable. The amniotic fluid volume is normal at 14 cm and the fetus is in the transverse presentation. As the patient is currently 36 weeks of gestation, there is clinically no indication for return. documented in this encounter Plan of Treatment Upcoming Encounters Date Type Department Care Team (Late st Contact Info) Description 06/25/2024 11:45 AM EDT Office Visit Gynecology/Obstetrics Cristino Mckeon [address] [place] [address] Collette Cervantes CRNP [address] [place] [address] Ally Mckeon Stress Tests [place] [address] [place] [address] 07/03/2024 9:30 AM EDT Office Visit Gynecology/Obstetrics Cristino Mckeon [address] [place] [address] Anil Reyes MD [address] [place] [address] Mckeon, Non Stress Tests [place] [address] [place] [address] 07/22/2024 1:30 PM EDT Office Visit Gynecology/Obstetrics Cristino Mckeon [address] [place] [address] Mendy Upton PA-C [address] [place] [address] Health Maintenance Due Date Last Done Comments Hepatitis B Vaccine (1 of 3 - 19+ 3-dose series) 2009 HPV/Co-Test 2020 Depression Screening 09/20/2021 09/20/2020 COVID-19 Vaccine (2022- season) 2023 Cervical Cancer Screening 09/22/2023 Pap [...] as of this encounter Visit Diagnoses Diagnosis Hypothyroidism affecting in third trimester- Primary Obesity in , antepartum Obesity complicating , childbirth, or the puerperium, antepartum condition or complication Previous gastric bypass affecting , antepartum documented in this encounter Care Teams Assistant Spa Director Relationship Specialty Start Date End Date Maldonado Latif CRNP [address] [address] PCP - General Nurse Practitioner 03/10/21 documented as of this encounter
--- OUTSIDE RECORDS SUMMARY | 2024-07-15 07:05 | External Medical Summary | Summary of Care ---
Author Name Unknown Organization [facility] Address [address] [place] [address] Phone [phone] Care Team Providers Care Nail Making Machine Setter Name Role Phone Maldonado Latif Primary Care Provider Reason for Visit * Reason Comments Return Visit Non Stress Test Encounter Details Date Type Department Care Team (Late st Contact Info) Description 06/25/2024 11:45 AM EDT Office Visit Gynecology/Obstetric s [facility] [address] [facility] [place] [address] Collette [facility]ervantes CRNP [address] [facility] [address] Mike Non Stress Tests [facility] [address] [facility] [place] [address] Supervision of high risk in third trimester*; Obesity in , antepartum; Hypothyroidism affecting in third trimester; Previous gastric bypass affecting , antepartum; Previous delivery, antepartum condition or complication; Antepartum anemia complicating Allergies No known active allergiesdocumented as of this encounter (statuses as of 06/25/2024) Medications Medication Sig Dispensed Refills Start Date End Date Status Pediatric Vppvaejf-Qubaccve-A (FLINTSTONES COMPLETE) CHEW Take 1 Tab by mouth 2 times a day. Active Levothyroxine Sodium 25 MCG Oral Tablet (Levo-T) Pt taking 125 mcg 07/12/2020 Active Vitamin D3 1.25 MG (70666 UT) Oral Capsule Take 1 Capsule by [...] and dinner) 125 Strip 6 03/18/2024 Active LendingRobotTouch Delica Lancets 30GIndications:Superv ision of high risk [...] baby Was seen in the past by [facility] Endocrinology (last visit 07/2020) Thyroid ultrasound reveal [...] patient is s/p laprascopic gastric bypass at [facility] on May 19, 2009. Last seen [...] -Vitamin D 800 IU daily -Calcium citrate 1814-7360 mg daily (better absorbed than calcium carbonate) [...] money to get more. Never true 02/06/2024 [place] Depression Scale Answer Date Recorded [place] Depression Scale Total 0 05/27/2024 The thought [...] BTL scheduled. GBS and cervical check today. Qa Architect Documentation Provider requested mental health therapist. Name of mental health therapist: Daniela ASSESSMENT assessment with Non-stress Test completed [...] Gynecology/Obstetrics Cristino Mckeon [address] [place] [address] Anil Reyes MD [address] [place] [address] Ally Mckeon Stress Tests [place] [address] [place] [address] 07/22/2024 1:30 PM EDT Office Visit Gynecology/Obstetrics Cristino Mckeon [address] [place] [address] Mendy Upton PA-C [address] [place] [address] Pending Results Name Type Priority Associated Diagnoses [...] antepartum documented in this encounter Care Teams Nail Making Machine Setter Relationship Specialty Start Date End Date Maldonado Latif CRNP [address] [address] PCP - General Nurse Practitioner 03/10/21 documented as of this encounter
--- OUTSIDE RECORDS SUMMARY | 2024-07-15 07:05 | External Medical Summary | Summary of Care ---
Author Name Unknown Organization [facility] Address [address] [place] [address] Phone [phone] Care Team Providers Care Brake Repairer Hydraulic Name Role Phone Maldonado Latif Primary Care Provider Reason for Visit * Reason Comments Return Visit Non Stress Test Encounter Details Date Type Department Care Team (Late st Contact Info) Description 07/10/2024 10:00 AM EDT Office Visit Gynecology/Obstetric s [facility] [address] [facility] [place] [address] Collette Cervantes CRNP [address] [place] [address] Mike Non Stress Tests [place] [address] [facility] [place] [address] Supervision of high risk in third trimester*; Obesity in , antepartum; Hypothyroidism affecting , antepartum; Previous gastric bypass affecting , antepartum; Previous delivery, antepartum condition or complication; Antepartum anemia complicating Allergies No known active allergiesdocumented as of this encounter (statuses as of 07/10/2024) Medications Medication Sig Dispensed Refills Start Date End Date Status Pediatric Pgydgrgj-Ivychkme-Q (FLINTSTONES COMPLETE) CHEW Take 1 Tab by mouth 2 times a day. Active Levothyroxine Sodium 25 MCG Oral Tablet (Levo-T) Pt taking 125 mcg 07/12/2020 Active Vitamin D3 1.25 MG (92928 UT) Oral Capsule Take 1 Capsule by [...] and dinner) 125 Strip 6 03/18/2024 Active SplurgyTouch Delica Lancets 30GIndications:Superv ision of high risk in second trimester,Previous gastric bypass affecting , antepartum Use to test blood sugars 4 times daily (fasting, 1 hour after breakfast, lunch, and dinner) 200 Each 6 03/18/2024 Active documented as of this encounter (statuses as of 07/10/2024) Active Problems Problem Noted Date Diagnosed Date [...] baby Was seen in the past by [facility] Endocrinology (last visit 07/2020) Thyroid ultrasound [...] patient is s/p laprascopic gastric bypass at [facility] on May 19, 2009. Last seen by [...] -Vitamin D 800 IU daily -Calcium citrate 9182-2507 mg daily (better absorbed than calcium carbonate) [...] as of this encounter (statuses as of 07/10/2024) Resolved Problems Problem Noted Date Diagnosed Date [...] as of this encounter (statuses as of 07/10/2024) Immunizations Name Administration Dates Next Due HPV Vaccine, 4-Valent 04/11/2014,01/09/2014,11/2003 Seasonal Influenza, Quadriva lent, No Preserve, IM 09/11/2018 Seasonal Influenza, Trivalen t, (IIV3), PF, (Fluzone) 09/11/2013 Seasonal Influenza, Trivalen t, (IIV3), with Preserv, (Fluzone) 07/23/2016,08/25/2014 TDAP (age 10 and older)(Boostrix) 2023,04/10/2018,01/04/2016,08/11/20 [...] money to get more. Never true 02/06/2024 [place] Depression Scale Answer Date Recorded [place] Depression Scale Total 0 05/27/2024 The thought [...] Sign Reading Time Taken Comments Blood Pressure - - Pulse - - Temperature - - Respiratory Rate - - Oxygen Saturation - - Inhaled Oxygen Concentration - - Weight 127.9 kg (282 lb) 07/10/2024 9:54 AM EDT Height 157.5 cm (5' 2") 07/10/2024 9:54 AM EDT Body Mass Index 51.58 07/10/2024 9:54 AM EDT documented in this encounter Progress Notes * Collette Cervantes CRNP - 07/10/2024 10:03 AM EDT 38w5d No concerns. Ready for c/s next week. Reports good FM. No contractions. ASSESSMENT assessment with Non-stress Test completed on 07/10/2024 at 38.5weeks gestation for indication of obesity heart baseline: 140 bpm Variability: Moderate Decelerations: absent Accelerations: present Contractions: None NST start time: 2216 (per NST timestamp) NST stop time: 2302 (per NST timestamp) NST strip reviewed, interpreted, and approved by OB providerCollette CRNP . NST strip stored in clinic storage file documented in this encounter Nursing Notes * July Fink LPN - 07/10/2024 10:01 AM EDT 38w5d ROSENDA, AMADOU LAUGHLIN 07/15. documented in this encounter Plan of Treatment Upcoming Encounters Date Type Department Care Team (Late st Contact Info) Description 07/22/2024 1:30 PM EDT [facility] [address] [place] [address] Mendy Upton PA-C [address] [place] [address] Health Maintenance Due Date Last Done Comments Hepatitis B Vaccine (1 of 3 - 19+ 3-dose series) 2009 HPV/Co-Test 2020 Depression Screening 09/20/2021 09/20/2020 COVID-19 Vaccine (2022- season) 2023 Cervical Cancer Screening 09/22/2023 Pap Smear 09/22/2023 09/22/2020, 10/11, 10/18/2016, Additional history exists Influenza Vaccine (FLU shot) (#1) 2024 09/11/2018, 07/23/2016, 08/25/2014, Additional history exists TSH 04/29/2025 04/29/2024, 01/09, 12/23/2023, Additional history exists DTap/Tdap Vaccines (5 - Td or Tdap) 04/29/2034 04/29/2024, 04/10/2018, 01/04/2016, Additional history exists MENINGOCOCCAL (MENACTRA/MENVEO) Aged Out 06/11/2006 No longer eligible based on patient's age to complete this topic HPV (Gardasil) Vaccine Completed 4, 01/09/2014, 07/15/2007, Additional history exists Pneumococcal Vaccine: [...] puerperium, antepartum condition or complication Hypothyroidism affecting , antepartum Previous gastric bypass affecting , antepartum Previous delivery, antepartum condition or complication Antepartum anemia complicating Anemia, antepartum documented in this encounter Care Teams Brake Repairer Hydraulic Relationship Specialty Start Date End Date Maldonado Latif CRNP [address] [facility] [address] [place] [address] PCP - General Nurse Practitioner 03/10/21 documented as of this encounter
--- OUTSIDE RECORDS SUMMARY | 2024-07-15 07:05 | External Medical Summary | Summary of Care ---
Author Name Unknown Organization [facility] Address [address] [place] [address] Phone [phone] Care Team Providers Care Retinal Angiographer Name Role Phone Maldonado Latif Primary Care Provider Reason for Referral * Evaluate & Treat - Unlimited Visits (Within 10 days (routine)) - Authorized Specialty Diagnoses / Procedures Referred By Mckay t Referred To Contact Pharmacist / Pharmacy Diagnoses PHILOMENA (iron deficiency anemia) Margaret Uribe CRNP [address] [place] [address] Referral ID Status Reason Start Date Expiration Date Visits Requested Visits Authorized [id number] Authorized Specialty Services Required 06/04/2024 12/01/2024 99 99 Question Answer Referral Priority Within 10 days (routine) Where should this appointment be scheduled? [facility] Referring Provider Role: Specialist Specialty: product director Reason for Referral: Anemia Comments Pharmacist Medication Therapy Management: Iron deficiency anemia Fausto Peña RN Reason for Visit * Reason Onset Date Comments Blood Management Program 06/04/2024 Encounter Details Date Type Department Care Team (Late st Contact Info) Description 06/04/2024 Telephone Patient Blood Management, [place] [address] [place] [address] Margaret Uribe CRNP [address] [place] [place] [address] Blood Management Program Allergies No known active allergiesdocumented as of this encounter (statuses as of 06/23/2024) Medications Medication Sig Dispensed Refills Start Date End Date Status Pediatric Kwwkejlc-Kednvmos-E (FLINTSTONES COMPLETE) CHEW Take 1 Tab by mouth 2 times a day. Active Levothyroxine Sodium 25 MCG Oral Tablet (Levo-T) Pt taking 125 mcg 07/12/2020 Active Vitamin D3 1.25 MG (18218 UT) Oral Capsule Take 1 Capsule by [...] lunch, and dinner) 1 Kit 03/18/2024 Active SecureNet Payment SystemsTouch Verio In Vitro Strip (Glucose Blood)Indications:Sup ervision [...] as of this encounter (statuses as of 06/23/2024) Active Problems Problem Noted Date Diagnosed Date [...] baby Was seen in the past by [facility] Endocrinology (last visit 07/2020) Thyroid ultrasound [...] -Vitamin D 800 IU daily -Calcium citrate 3658-0422 mg daily (better absorbed than calcium carbonate) [...] as of this encounter (statuses as of 06/23/2024) Resolved Problems Problem Noted Date Diagnosed Date [...] Lalito Villanueva MD Hem/Onc , normal first 07/27/2015 04/2 07/2016 Overview: Baby boy "Brandon". Received tDap 01/04/2016 [...] as of this encounter (statuses as of 06/23/2024) Immunizations Name Administration Dates Next Due HPV [...] money to get more. Never true 02/06/2024 [place] Depression Scale Answer Date Recorded [place] Depression Scale Total 0 05/27/2024 The thought [...] on file documented as of this encounter Miscellaneous Notes * Telephone Encounter - Fausto Peña RN - 06/04/2024 1:07 PM EDT Recommend IV iron per OB MTM guidelines. Patient agreeable, prefers infusion at [facility]. Will make patient aware of needed labs. documented in this encounter Plan of Treatment Upcoming Encounters Date Type Department Care Team (Late st Contact Info) Description 06/24/2024 10:00 AM EDT Pharmacy Pharmacy, [place] [address] [place] [address] Clinic, Anemia [facility] [address] 06/24/2024 2:30 PM EDT Office Visit Employment Program Representative Obstetrics Maternal Medicine, [place] [address] [place] [address] Eleazar Iverson MD [address] [place] [address] 06/24/2024 2:30 PM EDT Imaging Radiology [facility]om[facility] [place], [place] [address] [place] [address] 06/25/2024 11:45 AM EDT Office Visit Gynecology/Obstetrics Cristino Mckeon [address] [place] [id number] Collette Cervantes CRNP [address] [place] [address] Mike Non Stress Tests [place] [address] [place], [place] [id number] 07/03/2024 9:30 AM EDT Office Visit Gynecology/Obstetrics Cristino Mckeon [address] [place] [id number] Anil Reyes MD [address] [place] [address] MikeAlly Stress Tests [place] [address] [place] [address] 07/22/2024 1:30 PM EDT Office Visit Gynecology/Obstetrics Cristino Mckeon [address] [place] [address] Mendy Upton PA-C [address] [place] [address] Scheduled Referrals Name Type Priority Associated Diagnoses Orde r Schedule PHARMACIST MEDS THERAPY MGMT REFERRAL OP Referral Within 10 days (routine) PHILOMENA (iron deficiency anemia) Ordered: 06/04/2024 Health Maintenance Due Date Last Done Comments [...] as of this encounter Visit Diagnoses Diagnosis PHILOMENA (iron deficiency anemia)- Primary Iron deficiency anemia, unspecified documented in this encounter Care Teams Retinal Angiographer Relationship Specialty Start Date End Date Maldonado Latif CRNP [address] [facility] 2 [place] [address] PCP - General Nurse Practitioner 03/10/21 documented as of this encounter
--- OUTSIDE RECORDS SUMMARY | 2024-07-15 07:05 | External Medical Summary | Summary of Care ---
Author Name Unknown Organization [facility] Address [address] [place] [address] Phone [phone] Care Team Providers Care Cost Coordinator Name Role Phone Maldonado Latif Primary Care Provider Reason for Visit * Reason Onset Date Comments Anemia Follow-Up 06/24/2024 Encounter Details Date Type Department Care Team (Late st Contact Info) Description 06/24/2024 10:00 AM EDT Pharmacy Pharmacy, [place] [address] [place] [address] Clinic, Anemia [address] [place] [address] Iron deficiency anemia, unspecified iron deficiency anemia type* Allergies No known active allergiesdocumented as of this encounter (statuses as of 06/24/2024) Medications Medication Sig Dispensed Refills Start Date End Date Status Pediatric Uidgwxgv-Nvejyown-Z (FLINTSTONES COMPLETE) CHEW Take 1 Tab by mouth 2 times a day. Active Levothyroxine Sodium 25 MCG Oral Tablet (Levo-T) Pt taking 125 mcg 07/12/2020 Active Vitamin D3 1.25 MG (13259 UT) Oral Capsule Take 1 Capsule by mouth once a week. 12/17/2023 Active Gummies 0.18-25 MG Oral Tablet Chewable Take by mouth. Activ e MicroPort ([place]anghai)Touch Verio Flex System w/Device KitIndications:Superv ision of high risk in second trimester,Previous gastric bypass affecting , antepartum Use to test blood sugars 4 times daily for 7 days, between 26-28 weeks. (fasting, 1 hour after breakfast, lunch, and dinner) 1 Kit 03/18/2024 Active MicroPort ([place]anghai)Touch Verio In Vitro Strip (Glucose Blood)Indications:Sup ervision [...] baby Was seen in the past by [facility] Endocrinology (last visit 07/2020) Thyroid ultrasound reveal [...] -Vitamin D 800 IU daily -Calcium citrate 7154-4687 mg daily (better absorbed than calcium carbonate) [...] money to get more. Never true 02/06/2024 [place] Depression Scale Answer Date Recorded [place] Depression Scale Total 0 05/27/2024 The thought [...] as of this encounter Progress Notes * Charley Villa RPh - 06/24/2024 12:46 PM EDT Patient Phone Numbers Call to patient. Patient received Infed 1g x 1 on 06/22. Patient reports tolerating infusion very well. GA: 36w3d Estimated Date of Delivery: 07/19/24 Given proximity to patient's due date, will not repeat any additional lab work. Anemia Clinic will sign off. Thank you for allowing us to participate in the care of this patient. Thanks, Charley Villa RP Clinical Pharmacist [facility] Anemia Clinic (P: [phone]) 06/24/2024 12:46 PM documented in this encounter Plan of Treatment Upcoming Encounters Date Type Department Care Team (Late st Contact Info) Description 06/24/2024 2:30 PM EDT Office Visit Philosophy Lecturer Obstetrics Maternal Medicine, [place] [address] [place] [address] Eleazar Iverson MD [address] [place] [address] 06/24/2024 2:30 PM EDT Imaging Radiology [facility] [place], [place] [address] [place] [address] 06/25/2024 11:45 AM EDT Office Visit Gynecology/Obstetrics Cristino Mckeon [address] [place] [address] Collette Cervantes CRNP [address] [place] [address] Ally Mckeon Stress Tests [place] [address] [place] [address] 07/03/2024 9:30 AM EDT Office Visit Gynecology/Obstetrics Cristino Mckeon [address] [place] [address] Anil Reyes MD [address] [place] [address] Ally Mckeon Stress Tests [place] [address] [place] [address] 07/22/2024 1:30 PM EDT Office Visit Gynecology/Obstetrics Cristino Mckeon [address] [place] [phone] Mendy Upton PA-C [address] [place] [address] Health Maintenance Due Date Last Done Comments [...] anemia type- Primary documented in this encounter Care Teams Cost Coordinator Relationship Specialty Start Date End Date Maldonado Latif CRNP [address] [facility] 2 [place] [address] PCP - General Nurse Practitioner 03/10/21 documented as of this encounter
--- OUTSIDE RECORDS SUMMARY | 2024-07-15 07:05 | External Medical Summary ---
Author Name Unknown Address Unknown Organization K01:[facility] [place] [address] [facility] [address] [place] [address] Laboratory Report Ordering Provider Test Date Status NORAH CURRIE 06/25/2024 12:38:19 Final Observation Date Value Abnormality Reference (Units ) Status Streptococcus agalactiae DNA [Presence] in Specimen by CHRISTIANO with probe detection 06/25/2024 12:38:19 Negative Negative Final No Group B Streptococcus det ected by culture-enhanced PCR (amplified probe). GBS GBSCT - [facility] 06/25/2024 12:38:19 0.0 Final GBS SPCCT - [facility] 06/25/2024 12:38:19 30.2 Final Performing Location [facility] [address] [place] [id number]
--- OUTSIDE RECORDS SUMMARY | 2024-07-15 07:06 | External Medical Summary | Summary of Care ---
Author Name Unknown Organization [facility] Address [address] [place] [address] Phone [phone] Care Team Providers Care Home Builder Name Role Phone Maldonado Latif Primary Care Provider Reason for Visit * Reason Onset Date Comments Appointment 06/16/2024 Encounter Details Date Type Department Care Team (Late st Contact Info) Description 06/16/2024 Telephone Gynecology/Obstetrics [address] [address] Services, Scheduling [address] [place] [address] Appointment Allergies No known active allergiesdocumented as of this encounter (statuses as of 06/16/2024) Medications Medication Sig Dispensed Refills Start Date End Date Status Pediatric Hygmiwva-Unnfosgp-F (FLINTSTONES COMPLETE) CHEW Take 1 Tab by mouth 2 times a day. Active Levothyroxine Sodium 25 MCG Oral Tablet (Levo-T) Pt taking 125 mcg 07/12/2020 Active Vitamin D3 1.25 MG (11353 UT) Oral Capsule Take 1 Capsule by [...] as of this encounter (statuses as of 06/16/2024) Active Problems Problem Noted Date Diagnosed Date Antepartum anemia complicating 024 Overview: Referred for iron infusions at 28 wks with 11 completed weeks gestation 12/13 Supervision of high risk in [facility] 12/23/2023 Obesity in , antepartum 12/23/2023 Overview: [...] baby Was seen in the past by [facility] Endocrinology (last visit 07/2020) Thyroid ultrasound reveal small thyroid nodule Managed with Levothyroxine 25 mcg daily Lab Results Component Value Date/Time TSH - [facility] 1.38 12/23/2023 10:21 AM [...] patient is s/p laprascopic gastric bypass at [facility] on May 19, 2009. Last seen [...] -Vitamin D 800 IU daily -Calcium citrate 9668-4194 mg daily (better absorbed than calcium carbonate) [...] as of this encounter (statuses as of 06/16/2024) Resolved Problems Problem Noted Date Diagnosed Date Resolved Date H/O section 12/02/2017 018 Overview: Desires TOLAC. [...] ADRIENNE 18.6cm; BREECH TDAP given 04/10/2018 Aliyah L Witt, RN BMI 34.0-34.9,adult 08/15/20 17 Overview: Per Obesity protocol #1 documented as of this encounter (statuses as of 06/16/2024) Immunizations Name Administration Dates Next Due HPV Vaccine, 4-Valent 04/11/2014,01/09/2014,0 11/2003 Seasonal Influenza, Quadriva lent, No Preserve, IM [...] money to get more. Never true 02/06/2024 [place] Depression Scale Answer Date Recorded [place] Depression Scale Total 0 05/27/2024 The thought [...] encounter Miscellaneous Notes * Telephone Encounter - Helga Lombardo OSA - 06/16/2024 7:46 AM EDT Asking high priority Spoke to patient. She needs to be seen by a Physician for an NST and a pre op for her . She was scheduled for today but it was cancelled by the provider. Please contact patient at [phone] to assist. Thank you, Helga Lombardo District Sales Manager III Women's [facility] Scheduling documented in this encounter Plan of Treatment Upcoming Encounters Date Type Department Care Team (Late st Contact Info) Description 06/17/2024 1:15 PM EDT Office Visit Gynecology/Obstetrics Cristino Mckeon [address] [place] [address] Margaret Uribe CRNP [address] [place] [address] Ally Mckeon Stress Tests [place] [address] [place] [address] 06/22/2024 1:00 PM EDT Hem/Onc Treatment Hematology/Oncology Treatment, [place] [address] [place] [phone] Mirella, Chair 1 Hem Onc Scenery [address] [place] [facility] [place] [address] 06/24/2024 10:00 AM EDT Pharmacy Pharmacy, [address] [id number] Clinic, Anemia [facility] [place] [address] 06/24/2024 2:30 PM EDT Office Visit Transportation Maintenance Supervisor Obstetrics Maternal Medicine, [place] [address] [place] [address] Eleazar Iverson MD [address] [place] [address] 06/24/2024 2:30 PM EDT [facility], [place] [address] [place], [place] [phone] Health Maintenance Due Date Last Done Comments [...] filedocumented as of this encounter Care Teams Home Builder Relationship Specialty Start Date End Date Maldonado Latif CRNP [address] [facility] 2 [place] [address] PCP - General Nurse Practitioner 03/10/21 documented as of this encounter
--- OUTSIDE RECORDS SUMMARY | 2024-07-15 07:06 | External Medical Summary | Summary of Care ---
Author Name Unknown Organization [facility] Address [address] [place] [address] Phone [phone] Care Team Providers Care Creative Engagement Director Name Role Phone Maldonado Latif Primary Care Provider Reason for Visit * Reason Onset Date Comments Medication Pre-auth 06/11/2024 InFed Encounter Details Date Type Department Care Team (Late st Contact Info) Description 06/11/2024 Telephone Hematology/Oncology Treatment, [place] [address] [place] [address] Backer, PRISCILLA Puga [address] [place] [address] Medication Pre-auth (InFed) Allergies No known active allergiesdocumented as of this encounter (statuses as of 06/11/2024) Medications Medication Sig Dispensed Refills Start Date End Date Status Pediatric Buxlfzvf-Hfolwzgc-A (FLINTSTONES COMPLETE) CHEW Take 1 Tab by mouth 2 times a day. Active Levothyroxine Sodium 25 MCG Oral Tablet (Levo-T) Pt taking 125 mcg 07/12/2020 Active Vitamin D3 1.25 MG (36089 UT) Oral Capsule Take 1 Capsule by mouth once a week. 12/17/2023 Active Gummies 0.18-25 MG Oral Tablet Chewable Take by mouth. Activ e [facility] OpenTouch Verio Flex System w/Device KitIndications:Superv ision of high risk in second trimester,Previous gastric bypass affecting , antepartum Use to test blood sugars 4 times daily for 7 days, between 26-28 weeks. (fasting, 1 hour after breakfast, lunch, and dinner) 1 Kit 03/18/2024 Active [facility] Open[facility] Verio In Vitro Strip (Glucose Blood)Indications:Sup ervision of high risk in second trimester,Previous gastric bypass affecting , antepartum Use to test blood sugars 4 times daily (fasting, 1 hour after breakfast, lunch, and dinner) 125 Strip 6 03/18/2024 Active [facility] Open[facility] Delica Lancets 30GIndications:Superv ision of high risk in second trimester,Previous gastric bypass affecting , antepartum Use to test blood sugars 4 times daily (fasting, 1 hour after breakfast, lunch, and dinner) 200 Each 6 03/18/2024 Active documented as of this encounter (statuses as of 06/11/2024) Active Problems Problem Noted Date Diagnosed Date Antepartum anemia complicating 024 Overview: Referred for iron infusions at 28 wks with 11 completed weeks gestation 12/13 Supervision of high risk in [facility] 12/23/2023 Obesity in , antepartum 12/23/2023 Overview: [...] in the past by [facility] Endocrinology (last visit 07/2020) Thyroid [...] patient is s/p laprascopic gastric bypass at [facility] on May 19, 2009. Last seen [...] -Vitamin D 800 IU daily -Calcium citrate 5549-2107 mg daily (better absorbed than calcium carbonate) [...] as of this encounter (statuses as of 06/11/2024) Resolved Problems Problem Noted Date Diagnosed Date Resolved Date H/O section 12/02/201707/15/ 018 Overview: Desires TOLAC. Dilated to 9.5 [...] as of this encounter (statuses as of 06/11/2024) Immunizations Name Administration Dates Next Due HPV [...] money to get more. Never true 02/06/2024 [place] Depression Scale Answer Date Recorded [place] Depression Scale Total 0 05/27/2024 The thought [...] encounter Miscellaneous Notes * Telephone Encounter - Margaret Upton LPN - 06/11/2024 3:33 PM EDT Order received for InFed. [place] plan build and routed to p [phone]. No prior authorization required. Awaiting provider signature before scheduling patient. documented in this encounter Plan of Treatment Upcoming Encounters Date Type Department Care Team (Late st Contact Info) Description 06/11/2024 4:00 PM EDT Pharmacy Pharmacy, [place] [address] [place] [address] Clinic, [place] [address] [place] [address] Iron deficiency anemia, unspecified iron deficiency anemia type* 06/16/2024 10:45 AM EDT Office Visit Gynecology/Obstetric s Cristino Mckeon [address] [place] [id number] Loreto Vallejo MD [address] [place], [place] [phone] Mckeon, Non Stress Tests [place] [address] [facility] [place] [id number] 06/24/2024 10:00 AM EDT Pharmacy Pharmacy, [place] [address] [place] [address] Clinic, Anemia [address] [place] [address] 06/24/2024 2:30 PM EDT Office Visit Accounts Payable Professional Obstetrics Maternal Medicine, [place] [address] [place] [address] Eleazar Iverson MD [address] [place] [address] 06/24/2024 2:30 PM EDT [facility] [address] [place], [place] [phone] Health Maintenance Due Date Last Done Comments [...] filedocumented as of this encounter Care Teams Creative Engagement Director Relationship Specialty Start Date End Date Maldonado Latif CRNP [address] [facility] 2 [place] [address] PCP - General Nurse Practitioner 03/10/21 documented as of this encounter
--- OUTSIDE RECORDS SUMMARY | 2024-07-15 07:06 | External Medical Summary | Summary of Care ---
Author Name Unknown Organization [facility] Address [address] [place] [address] Phone [phone] Care Team Providers Care Pipefitter Welder Name Role Phone Maldonado Latif Primary Care Provider Reason for Visit * Reason Onset Date Comments Anemia Follow-Up 06/11/2024 Encounter Details Date Type Department Care Team (Late st Contact Info) Description 06/11/2024 4:00 PM EDT Pharmacy Pharmacy, [place] [address] [place] [address] Clinic, Anemia [address] [place] [address] Iron deficiency anemia, unspecified iron deficiency anemia type* Allergies No known active allergiesdocumented as of this encounter (statuses as of 06/11/2024) Medications Medication Sig Dispensed Refills Start Date End Date Status Pediatric Fnohxttb-Ndhupsfr-U (FLINTSTONES COMPLETE) CHEW Take 1 Tab by mouth 2 times a day. Active Levothyroxine Sodium 25 MCG Oral Tablet (Levo-T) Pt taking 125 mcg 07/12/2020 Active Vitamin D3 1.25 MG (93759 UT) Oral Capsule Take 1 Capsule by mouth once a week. 12/17/2023 Active Gummies 0.18-25 MG Oral Tablet Chewable Take by mouth. Activ e [employer] Verio Flex System w/Device KitIndications:Superv ision of [...] gestation 12/13 Supervision of high risk in [facility] 12/23/2023 Obesity in , antepartum [...] baby Was seen in the past by [facility] Endocrinology (last visit 07/2020) Thyroid ultrasound [...] patient is s/p laprascopic gastric bypass at [facility] on May 19, 2009. Last [...] -Vitamin D 800 IU daily -Calcium citrate 8507-7318 mg daily (better absorbed than calcium carbonate) [...] money to get more. Never true 02/06/2024 [place] Depression Scale Answer Date Recorded [place] Depression Scale Total 0 05/27/2024 The thought [...] of this encounter Progress Notes * Charley Villa, [facility] - 06/11/2024 1:42 PM EDT Patient Phone Numbers Patient referred by PRISCILLA Atwood for evaluation of anemia by the Anemia Clinic. Called patient to introduce role/clinic and to review labs from 06/09. Hgb: 9.9 g/dL TSAT: 7 % Ferritin: 8 ng/mL GA: 34w4d Estimated Date of Delivery: 07/19/24 Hgb is below target range for the third trimester. Iron studies below target range. Patient reports feeling extra tired. Oral iron replenishment inadequate or contraindicated. Patient qualifies for IV iron repletion. Insufficient time for oral iron to take effect. Plan: Iron dextran (INFeD) 1000 mg IV x 1 dose. Orders placed and routed to appropriate parties at [facility]. Patient agreeable to intervention. Follow-up labs to be scheduled ~4-6 weeks after iron repletion completed if appropriate prior to delivery. Anemia Clinic will continue to follow. Thank you for allowing us to participate in the care of thispatient. Thanks, Charley Villa [facility] Clinical Pharmacist [facility] Anemia [facility] (P: [phone]) documented in this encounter Plan of Treatment Upcoming Encounters Date Type Department Care Team (Late st Contact Info) Description 06/16/2024 10:45 AM EDT Office Visit Gynecology/Obstetrics Cristino Mckeon [address] [facility] [place] [address] Loreto Vallejo MD [address] [place] [address] [phone] Ally Mckeon Stress Tests [facility] [address] [place] [address] 06/24/2024 10:00 AM EDT Pharmacy Pharmacy, [place] [address] [place], [place] [phone] Clinic, Anemia [address] [place], [place] [phone] 06/24/2024 2:30 PM EDT Office Visit Supervisor Customer Services Obstetrics Maternal Medicine, [place] [address] [place], [place] [phone] Eleazar Iverson MD [address] [place], [place] [phone] 06/24/2024 2:30 PM EDT [facility], [place] [address] [place], [place] [phone] Health Maintenance Due Date Last Done Comments [...] Primary documented in this encounter Care Teams Pipefitter Welder Relationship Specialty Start Date End Date Maldonado Latif CRNP [address] [facility] 2 [place] [address] PCP - General Nurse Practitioner 03/10/21 documented as of this encounter
--- OUTSIDE RECORDS SUMMARY | 2024-07-15 07:06 | External Medical Summary | Summary of Care ---
Author Name Unknown Organization [facility] Address [address] [place] [address] Phone [phone] Care Team Providers Care Heating And Ventilating Drafter Name Role Phone Maldonado Latif Primary Care Provider Reason for Visit * Reason Onset Date Comments Medication Pre-auth 06/11/2024 InFed Encounter Details Date Type Department Care Team (Late st Contact Info) Description 06/11/2024 Telephone Hematology/Oncology Treatment, [place] [address] [place] [address] Backer, PRISCILLA Puga [address] [place] [address] Medication Pre-auth (InFed) Allergies No known active allergiesdocumented as of this encounter (statuses as of 06/15/2024) Medications Medication Sig Dispensed Refills Start Date End Date Status Pediatric Vebvagmf-Jlporjmf-G (FLINTSTONES COMPLETE) CHEW Take 1 Tab by mouth 2 times a day. Active Levothyroxine Sodium 25 MCG Oral Tablet (Levo-T) Pt taking 125 mcg 07/12/2020 Active Vitamin D3 1.25 MG (18248 UT) Oral Capsule Take 1 Capsule by mouth once a week. 12/17/2023 Active Gummies 0.18-25 MG Oral Tablet Chewable Take by mouth. Activ e [employer] InteractiveTouch Verio Flex System w/Device KitIndications:Superv ision of high risk in second trimester,Previous gastric bypass affecting , antepartum Use to test blood sugars 4 times daily for 7 days, between 26-28 weeks. (fasting, 1 hour after breakfast, lunch, and dinner) 1 Kit 03/18/2024 Active [employer]endi InteractiveTouch Verio In Vitro Strip (Glucose Blood)Indications:Sup ervision of high risk in second trimester,Previous gastric bypass affecting , antepartum Use to test blood sugars 4 times daily (fasting, 1 hour after breakfast, lunch, and dinner) 125 Strip 6 03/18/2024 Active [facility] InteractiveTouch Delica Lancets 30GIndications:Superv ision of high risk in second trimester,Previous gastric bypass affecting , antepartum Use to test blood sugars 4 times daily (fasting, 1 hour after breakfast, lunch, and dinner) 200 Each 6 03/18/2024 Active documented as of this encounter (statuses as of 06/15/2024) Active Problems Problem Noted Date Diagnosed Date Antepartum anemia complicating 024 Overview: Referred for iron infusions at 28 wks with 11 completed weeks gestation 12/13 Supervision of high risk in [facility] 12/23/2023 Obesity in , antepartum 12/23/2023 [...] the past by [facility] Endocrinology (last visit 07/2020) Thyroid ultrasound reveal [...] patient is s/p laprascopic gastric bypass at [facility] on May 19, 2009. Last seen [...] -Vitamin D 800 IU daily -Calcium citrate 2648-8186 mg daily (better absorbed than calcium carbonate) [...] as of this encounter (statuses as of 06/15/2024) Resolved Problems Problem Noted Date Diagnosed Date [...] as of this encounter (statuses as of 06/15/2024) Immunizations Name Administration Dates Next Due HPV [...] money to get more. Never true 02/06/2024 [place] Depression Scale Answer Date Recorded [place] Depression Scale Total 0 05/27/2024 The thought [...] encounter Miscellaneous Notes * Telephone Encounter - Monalisa Louise OSA - 06/15/2024 8:59 AM EDT Patient returned to schedule. Please contact Blanca at [phone]. Thank you. * Telephone Encounter - Steffany Brady OSA - 06/15/2024 8:54 AM EDT Left message * Telephone Encounter - Blanca Schaefer RN - 06/15/2024 7:48 AM EDT [place] is signed. Scheduling: please call patient to schedule 3 hour appt "infed" (Margaret Backer). Thanks! * Telephone Encounter - Margaret Upton LPN - 06/11/2024 3:33 PM EDT Order received for InFed. [place] plan build and routed to p [phone]. No prior authorization required. Awaiting provider signature before scheduling patient. documented in this encounter Plan of Treatment Upcoming Encounters Date Type Department Care Team (Late st Contact Info) Description 06/16/2024 10:45 AM EDT Office Visit Gynecology/Obstetrics Cristino [facility] [address] [facility] [place] [address] Loreto Vallejo MD [address] [place] [address] Mike Non Stress Tests [place] [address] [place] [address] 06/24/2024 10:00 AM EDT Pharmacy Pharmacy, [address] [id number] Clinic, [place] [address] [place] [address] 06/24/2024 2:30 PM EDT Office Visit Superintendent Meters Obstetrics Maternal Medicine, [address] [id number] Eleazar Iverson MD [facility] [place] [address] 06/24/2024 2:30 PM EDT Imaging Radiology [facility], [place] [address] [place] [address] Health Maintenance Due Date Last Done Comments Hepatitis B Vaccine (1 of 3 - 19+ 3-dose series) 2009 HPV/Co-Test 2020 Depression Screening 09/20/2021 09/20/2020 COVID-19 Vaccine (1 - 2022-24 season) 2023 Cervical Cancer Screening [...] filedocumented as of this encounter Care Teams Heating And Ventilating Drafter Relationship Specialty Start Date End Date Maldonado Latif CRNP [address] [facility] 2 [place] [address] PCP - General Nurse Practitioner 03/10/21 documented as of this encounter
--- OUTSIDE RECORDS SUMMARY | 2024-07-15 07:06 | External Medical Summary | Summary of Care ---
Author Name Unknown Organization [facility] Address [address] [place] [address] Phone [phone] Care Team Providers Care Patient Scheduling Manager Name Role Phone Maldonado Latif Primary Care Provider Reason for Visit * Reason Onset Date Comments Medication Pre-auth 06/11/2024 InFed Encounter Details Date Type Department Care Team (Late st Contact Info) Description 06/11/2024 Telephone Hematology/Oncology Treatment, [place] [address] [place] [address] Backer, PRISCILLA Puga [address] [place] [address] Medication Pre-auth (InFed) Allergies No known active allergiesdocumented as of this encounter (statuses as of 06/15/2024) Medications Medication Sig Dispensed Refills Start Date End Date Status Pediatric Mtuswirs-Svvvwlte-D (FLINTSTONES COMPLETE) CHEW Take 1 Tab by mouth 2 times a day. Active Levothyroxine Sodium 25 MCG Oral Tablet (Levo-T) Pt taking 125 mcg 07/12/2020 Active Vitamin D3 1.25 MG (29622 UT) Oral Capsule Take 1 Capsule by mouth once a week. 12/17/2023 Active Gummies 0.18-25 MG Oral Tablet Chewable Take by mouth. Activ e We[employer]andTouch Verio Flex System w/Device KitIndications:Superv ision of high risk in second trimester,Previous gastric bypass affecting , antepartum Use to test blood sugars 4 times daily for 7 days, between 26-28 weeks. (fasting, 1 hour after breakfast, lunch, and dinner) 1 Kit 03/18/2024 Active [employer] Verio In Vitro Strip (Glucose Blood)Indications:Sup ervision of high risk in second trimester,Previous gastric bypass affecting , antepartum Use to test blood sugars 4 times daily (fasting, 1 hour after breakfast, lunch, and dinner) 125 Strip 6 03/18/2024 Active [employer] Delica Lancets 30GIndications:Superv ision of high risk [...] gestation 12/13 Supervision of high risk in [facility] 12/23/2023 Obesity in , antepartum [...] baby Was seen in the past by [facility] Endocrinology (last visit 07/2020) Thyroid [...] patient is s/p laprascopic gastric bypass at [facility] on May 19, 2009. Last seen by [...] -Vitamin D 800 IU daily -Calcium citrate 0206-4123 mg daily (better absorbed than calcium carbonate) [...] money to get more. Never true 02/06/2024 [place] Depression Scale Answer Date Recorded [place] Depression Scale Total 0 05/27/2024 The thought [...] encounter Miscellaneous Notes * Telephone Encounter - Blanca Schaefer RN - 06/15/2024 7:48 AM EDT [place] is signed. Scheduling: please call patient to schedule 3 hour appt "infed" (Margaret Backer). Thanks! * Telephone Encounter - Margaret Upton LPN - 06/11/2024 3:33 PM EDT Order received for InFed. [place] plan build and routed to p [phone]. No prior authorization required. Awaiting provider signature before scheduling patient. documented in this encounter Plan of Treatment Upcoming Encounters Date Type Department Care Team (Late st Contact Info) Description 06/16/2024 10:45 AM EDT Office Visit Gynecology/Obstetrics Cristino Mckeon [address] [place] [address] Loreto Vallejo MD [address] [facility] [place] [address] Mckeon, Ally Stress Tests [facility] [address] [facility] [place] [address] 06/24/2024 10:00 AM EDT Pharmacy Pharmacy, [address] [id number] Clinic, [place] [address] [place] [address] 06/24/2024 2:30 PM EDT Office Visit Silver Recovery Operator Obstetrics Maternal Medicine, [place] [address] [place] [address] Eleazar Iverson MD [address] [place] [address] 06/24/2024 2:30 PM EDT Imaging Radiology [facility], [place] [address] [place] [address] Health Maintenance Due Date Last Done Comments [...] filedocumented as of this encounter Care Teams Patient Scheduling Manager Relationship Specialty Start Date End Date Maldonado Latif CRNP [address] [facility] 2 [place] [address] PCP - General Nurse Practitioner 03/10/21 documented as of this encounter
--- OUTSIDE RECORDS SUMMARY | 2024-07-15 07:06 | External Medical Summary | Summary of Care ---
Author Name Unknown Organization [facility] Address [address] [place] [address] Phone [phone] Care Team Providers Care Arts Administrator Name Role Phone Maldonado Latif Primary Care Provider Encounter Details Date Type Department Care Team (Late st Contact Info) Description 06/11/2024 Orders Only Gynecology/Obstetrics [facility] [address] [place] [address] Margaret Uribe CRNP [address] [place] [address] Iron deficiency anemia, unspecified iron deficiency anemia type* Allergies No known active allergiesdocumented as of this encounter (statuses as of 06/11/2024) Medications Medication Sig Dispensed Refills Start Date End Date Status Pediatric Hnlfdpba-Hdgigjfx-U (FLINTSTONES COMPLETE) CHEW Take 1 Tab by mouth 2 times a day. Active Levothyroxine Sodium 25 MCG Oral Tablet (Levo-T) Pt taking 125 mcg 07/12/2020 Active Vitamin D3 1.25 MG (76447 UT) Oral Capsule Take 1 Capsule by [...] gestation 12/13 Supervision of high risk in [facility] 12/23/2023 Obesity in , antepartum 12/23/2023 [...] baby Was seen in the past by [facility] Endocrinology (last visit 07/2020) Thyroid ultrasound reveal [...] patient is s/p laprascopic gastric bypass at [facility] on May 19, 2009. Last seen by [...] -Vitamin D 800 IU daily -Calcium citrate 4686-0917 mg daily (better absorbed than calcium carbonate) [...] money to get more. Never true 02/06/2024 [place] Depression Scale Answer Date Recorded [place] Depression Scale Total 0 05/27/2024 The thought [...] Description 06/11/2024 4:00 PM EDT Pharmacy Pharmacy, [place] [address] [place] [address] Clinic, An[place] [address] [place] [address] Iron deficiency anemia, unspecified iron deficiency anemia type* 06/16/2024 10:45 AM EDT Office Visit Gynecology/Obstetric s [facility] [address] [place] [address] Loreto Vlalejo MD [address] [place] [address] Mike, Ally Stress Tests [place] 132 [place] [address] 06/24/2024 10:00 AM EDT Pharmacy Pharmacy, [address] [address] Clinic, Anemia [facility] [place] [address] 06/24/2024 2:30 PM EDT Office Visit Transcriber Obstetrics Maternal Medicine, [place] [address] [place] [address] [facility] [address] [place], [place] [id number] 06/24/2024 2:30 PM EDT Imaging Radiology [facility], [place] [address] [place], [place] [phone] Health Maintenance Due Date Last Done Comments [...] anemia, unspecified iron deficiency anemia type- Primary Iron deficiency anemia, unspecified iron deficiency anemia type- Primary documented in this encounter Care Teams Arts Administrator Relationship Specialty Start Date End Date Maldonado Latif CRNP [address] [address] PCP - General Nurse Practitioner 03/10/21 documented as of this encounter
--- OUTSIDE RECORDS SUMMARY | 2024-07-15 07:06 | External Medical Summary | Summary of Care ---
Author Name Unknown Organization [facility] Address [address] [place] [address] Phone [phone] Care Team Providers Care Fleet Manager/Dispatch Name Role Phone Maldonado Latif Primary Care Provider Encounter Details Date Type Department Care Team (Late st Contact Info) Description 06/12/2024 Orders Only Pharmacy, [place] [address] [place], [place] [phone] Aram Rob, [facility] [address] [place], [place] [address] Allergies No known active allergiesdocumented as of this encounter (statuses as of 06/12/2024) Medications Medication Sig Dispensed Refills Start Date End Date Status Pediatric Jkhjmlpe-Rsbbccqg-D (FLINTSTONES COMPLETE) CHEW Take 1 Tab by mouth 2 times a day. Active Levothyroxine Sodium 25 MCG Oral Tablet (Levo-T) Pt taking 125 mcg 07/12/2020 Active Vitamin D3 1.25 MG (83687 UT) Oral Capsule Take 1 Capsule by [...] as of this encounter (statuses as of 06/12/2024) Active Problems Problem Noted Date Diagnosed Date Antepartum anemia complicating 024 Overview: Referred for iron infusions at 28 wks with 11 completed weeks gestation 12/13 Supervision of high risk in [facility] 12/23/2023 Obesity in , antepartum 12/23/2023 [...] patient is s/p laprascopic gastric bypass at [facility] on May 19, 2009. Last seen [...] -Vitamin D 800 IU daily -Calcium citrate 2356-2078 mg daily (better absorbed than calcium carbonate) [...] as of this encounter (statuses as of 06/12/2024) Resolved Problems Problem Noted Date Diagnosed Date [...] as of this encounter (statuses as of 06/12/2024) Immunizations Name Administration Dates Next Due HPV [...] money to get more. Never true 02/06/2024 [place] Depression Scale Answer Date Recorded [place] Depression Scale Total 0 05/27/2024 The thought [...] 06/16/2024 10:45 AM EDT Office Visit Gynecology/Obstetrics [facility] 132 [facility] [place] [address] Loreto Vallejo MD [address] [place] [address] Ally Mckeon Stress Tests [place] [address] [place] [address] 06/24/2024 10:00 AM EDT Pharmacy Pharmacy, [place] [address] [place], [place] [phone] [facility] [address] [place] [address] 06/24/2024 2:30 PM EDT Office Visit Veneer Sander Obstetrics Maternal Medicine, [place] [address] [place] [address] Eleazar Iverson MD [address] [place] [address] 06/24/2024 2:30 PM EDT Imaging Radiology [facility], [place] [address] [place] [address] Health Maintenance Due Date Last Done Comments [...] filedocumented as of this encounter Care Teams Fleet Manager/Dispatch Relationship Specialty Start Date End Date Maldonado Latif CRNP [address] [facility] 2 [place] [address] PCP - General Nurse Practitioner 03/10/21 documented as of this encounter
--- OUTSIDE RECORDS SUMMARY | 2024-07-15 07:06 | External Medical Summary | Summary of Care ---
Author Name Unknown Organization [facility] Address [address] [place] [address] Phone [phone] Care Team Providers Care Cardiac Sonographer Name Role Phone Maldonado Latif Primary Care Provider Reason for Visit * Reason Comments Non Stress Test Encounter Details Date Type Department Care Team (Late st Contact Info) Description 06/17/2024 1:15 PM EDT Office Visit Gynecology/Obstetric s [facility] [address] [facility] [place] [address] Margaret Uribe CRNP [address] [facility] [place] [address] Mike Non Stress Tests [place] [address] [place] [address] Supervision of high risk in third trimester*; Obesity in , antepartum; Hypothyroidism affecting in third trimester; Previous gastric bypass affecting , antepartum; Previous delivery, antepartum condition or complication; Antepartum anemia complicating Allergies No known active allergiesdocumented as of this encounter (statuses as of 06/17/2024) Medications Medication Sig Dispensed Refills Start Date End Date Status Pediatric Gnhpvgil-Ldxjhhdj-R (FLINTSTONES COMPLETE) CHEW Take 1 Tab by mouth 2 times a day. Active Levothyroxine Sodium 25 MCG Oral Tablet (Levo-T) Pt taking 125 mcg 07/12/2020 Active Vitamin D3 1.25 MG (68039 UT) Oral Capsule Take 1 Capsule by [...] as of this encounter (statuses as of 06/17/2024) Active Problems Problem Noted Date Diagnosed Date [...] baby Was seen in the past by [facility] Endocrinology (last visit 07/2020) Thyroid ultrasound reveal [...] patient is s/p laprascopic gastric bypass at [facility] on May 19, 2009. Last [...] -Vitamin D 800 IU daily -Calcium citrate 3282-9113 mg daily (better absorbed than calcium carbonate) [...] as of this encounter (statuses as of 06/17/2024) Resolved Problems Problem Noted Date Diagnosed Date [...] as of this encounter (statuses as of 06/17/2024) Immunizations Name Administration Dates Next Due HPV [...] money to get more. Never true 02/06/2024 [place] Depression Scale Answer Date Recorded [place] Depression Scale Total 0 05/27/2024 The thought [...] Sign Reading Time Taken Comments Blood Pressure 124/72 06/17/2024 1:21 PM EDT Pulse - - Temperature - - Respiratory Rate - - Oxygen Saturation - - Inhaled Oxygen Concentration - - Weight 127.1 kg (280 lb 3.2 oz) 06/17/2024 1:21 PM EDT Height - - Body Mass Index 51.25 01/20/2024 1:34 PM EDT documented in this encounter Progress Notes * Margaret Uribe CRNP - 06/17/2024 1:34 PM EDT 35w3d Baby moving well. No regular ctx, leaking/bleeding. Scheduled for MFM U/S and IV iron infusion next week. Will see Jessy after her appt today to schedule C/S. 1 week return. PRISCILLA Carey ASSESSMENT assessment with Non-stress Test completed on 06/17/2024 at 35.3 weeks gestation for indication of obesity heart baseline: 140 bpm Variability: Moderate Decelerations: absent Accelerations: present Contractions: None NST start time: 1307 NST stop time: 1340 NST strip reviewed, interpreted, and approved by OB provider, PRISCILLA Carey . NST strip stored in clinic storage file * Rachell Salmon MED ASSIST - 06/17/2024 1:21 PM EDT Patient present today for NST/AMADOU. 35w3d Denies vaginal bleeding/rom + movements documented in this encounter Plan of Treatment Upcoming Encounters Date Type Department Care Team (Late st Contact Info) Description 06/22/2024 1:00 PM EDT Hem/Onc Treatment Hematology/Oncology Treatment, [place] [address] [place] [address] Mirella, Chair [address] [place] [address] 06/24/2024 10:00 AM EDT Pharmacy Pharmacy, [address] [address] Clinic, [address] [address] 06/24/2024 2:30 PM EDT Office Visit Temp Recruiter Obstetrics Maternal Medicine, [address] [place] [address] Eleazar Iverson MD [address] [place] [address] 06/24/2024 2:30 PM EDT [facility] [address] [place] [address] 06/25/2024 11:45 AM EDT Office Visit Gynecology/Obstetrics Cristino Polancos [address] [place] [address] Collette Cervantes CRNP [address] [place] [address] Ally Mckeon Stress Tests [place] [address] [place] [address] 07/03/2024 9:30 AM EDT Office Visit Gynecology/Obstetrics Cristino Mckeon [address] [place] [address] Anil Reyes MD [address] [place] [address] Ally Mckeon Stress Tests [place] [address] [place] [address] 07/22/2024 1:30 PM EDT Office Visit Gynecology/Obstetrics Cristino Mckeon [address] [place] [address] Mendy Upton PA-C [address] [place] [address] Health Maintenance Due Date Last Done Comments [...] antepartum documented in this encounter Care Teams Cardiac Sonographer Relationship Specialty Start Date End Date Maldonado Latif CRNP [address] [address] PCP - General Nurse Practitioner 03/10/21 documented as of this encounter
--- OUTSIDE RECORDS SUMMARY | 2024-07-15 07:06 | External Medical Summary | Summary of Care ---
Author Name Unknown Organization [facility] Address [address] [place] [address] Phone [phone] Care Team Providers Care Rate Examiner Name Role Phone Maldonado Latif Primary Care Provider Reason for Visit * Reason Onset Date Comments Medication Pre-auth 06/11/2024 InFed Encounter Details Date Type Department Care Team (Late st Contact Info) Description 06/11/2024 Telephone Hematology/Oncology Treatment, [place] [address] [place] [address] Backer, PRISCILLA Puga [address] [place] [address] Medication Pre-auth (InFed) Allergies No known active allergiesdocumented as of this encounter (statuses as of 06/15/2024) Medications Medication Sig Dispensed Refills Start Date End Date Status Pediatric Qluvkewg-Uzycmxav-D (FLINTSTONES COMPLETE) CHEW Take 1 Tab by mouth 2 times a day. Active Levothyroxine Sodium 25 MCG Oral Tablet (Levo-T) Pt taking 125 mcg 07/12/2020 Active Vitamin D3 1.25 MG (54775 UT) Oral Capsule Take 1 Capsule by mouth once a week. 12/17/2023 Active Gummies 0.18-25 MG Oral Tablet Chewable Take by mouth. Activ e SingularTouch Verio Flex System w/Device KitIndications:Superv ision of high risk in second trimester,Previous gastric bypass affecting , antepartum Use to test blood sugars 4 times daily for 7 days, between 26-28 weeks. (fasting, 1 hour after breakfast, lunch, and dinner) 1 Kit 03/18/2024 Active SingularTouch Verio In Vitro Strip (Glucose Blood)Indications:Sup ervision of high risk in second trimester,Previous gastric bypass affecting , antepartum Use to test blood sugars 4 times daily (fasting, 1 hour after breakfast, lunch, and dinner) 125 Strip 6 03/18/2024 Active SingularTouch Delica Lancets 30GIndications:Superv ision of high risk [...] gestation 12/13 Supervision of high risk in [facility] 12/23/2023 Obesity in , antepartum 12/23/2023 Overview: [...] baby Was seen in the past by [facility] Endocrinology (last visit 07/2020) Thyroid [...] patient is s/p laprascopic gastric bypass at [facility] on May 19, 2009. Last seen [...] -Vitamin D 800 IU daily -Calcium citrate 6928-1496 mg daily (better absorbed than calcium carbonate) [...] money to get more. Never true 02/06/2024 [place] Depression Scale Answer Date Recorded [place] Depression Scale Total 0 05/27/2024 The thought [...] encounter Miscellaneous Notes * Telephone Encounter - Steffany Brady OSA - 06/15/2024 9:13 AM EDT Apt is scheduled and pt is aware * Telephone Encounter - Monalisa Louise OSA - 06/15/2024 8:59 AM EDT Patient returned to schedule. Please contact Blanca at [phone]. Thank you. * Telephone Encounter - Steffany Brady OSA - 06/15/2024 8:54 AM EDT Left message * Telephone Encounter - Blanca Schaefer RN - 06/15/2024 7:48 AM EDT [place] is signed. Scheduling: please call patient to schedule 3 hour appt "infed" (Margaret Backer). Thanks! * Telephone Encounter - Margaret Upton LPN - 06/11/2024 3:33 PM EDT Order received for InFed. [place] plan build and routed to p [id number]. No prior authorization required. Awaiting provider signature before scheduling patient. documented in this encounter Plan of Treatment Upcoming Encounters Date Type Department Care Team (Late st Contact Info) Description 06/16/2024 10:45 AM EDT Office Visit Gynecology/Obstetrics Cristino Mckeon [address] [place] [address] Loreto Vallejo MD [address] [place] [address] Ally Mckeon Stress Tests [place] [address] [place] [address] 06/22/2024 1:00 PM EDT Hem/Onc Treatment Hematology/Oncology Treatment, [place] [address] [place] [address] Mirella, Chair 1 Hem [facility]c [facility] [address] 06/24/2024 10:00 AM EDT Pharmacy Pharmacy, [address] [address] Clinic, Anemia [address] [place] [address] 06/24/2024 2:30 PM EDT Office Visit Mattress And Foundation Sewer Obstetrics Maternal Medicine, [place] [address] [place] [address] Eleazar Iverson MD [address] [place] [address] 06/24/2024 2:30 PM EDT Imaging Radiology [facility] [place], [place] [address] [place], [place] [address] Health Maintenance Due Date Last Done Comments [...] filedocumented as of this encounter Care Teams Rate Examiner Relationship Specialty Start Date End Date Maldonado Latif CRNP [address] [facility] 2 [place] [address] PCP - General Nurse Practitioner 03/10/21 documented as of this encounter
--- OUTSIDE RECORDS SUMMARY | 2024-07-15 07:06 | External Medical Summary | Summary of Care ---
Author Name Unknown Organization [facility] Address [address] [place] [address] Phone [phone] Care Team Providers Care Primary Therapist Name Role Phone Maldonado Latif Primary Care Provider Reason for Visit * Reason Onset Date Comments Medication Pre-auth 06/11/2024 InFed Encounter Details Date Type Department Care Team (Late st Contact Info) Description 06/11/2024 Telephone Hematology/Oncology Treatment, [place] [address] [place] [address] Backer, PRISCILLA Puga [address] [place] [address] Medication Pre-auth (InFed) Allergies No known active allergiesdocumented as of this encounter (statuses as of 06/15/2024) Medications Medication Sig Dispensed Refills Start Date End Date Status Pediatric Sdphrnqh-Zluwzdlr-H (FLINTSTONES COMPLETE) CHEW Take 1 Tab by mouth 2 times a day. Active Levothyroxine Sodium 25 MCG Oral Tablet (Levo-T) Pt taking 125 mcg 07/12/2020 Active Vitamin D3 1.25 MG (40696 UT) Oral Capsule Take 1 Capsule by mouth once a week. 12/17/2023 Active Gummies 0.18-25 MG Oral Tablet Chewable Take by mouth. Activ e Gruppo La PatriaTouch Verio Flex System w/Device KitIndications:Superv ision of high risk in second trimester,Previous gastric bypass affecting , antepartum Use to test blood sugars 4 times daily for 7 days, between 26-28 weeks. (fasting, 1 hour after breakfast, lunch, and dinner) 1 Kit 03/18/2024 Active Gruppo La PatriaTouch Verio In Vitro Strip (Glucose Blood)Indications:Sup ervision of high risk in second trimester,Previous gastric bypass affecting , antepartum Use to test blood sugars 4 times daily (fasting, 1 hour after breakfast, lunch, and dinner) 125 Strip 6 03/18/2024 Active Gruppo La PatriaTouch Delica Lancets 30GIndications:Superv ision of high risk [...] the past by [facility] Endocrinology (last visit 07/2020) Thyroid ultrasound reveal [...] patient is s/p laprascopic gastric bypass at [facility] on May 19, 2009. Last seen by [...] -Vitamin D 800 IU daily -Calcium citrate 7050-1653 mg daily (better absorbed than calcium carbonate) [...] money to get more. Never true 02/06/2024 [place] Depression Scale Answer Date Recorded [place] Depression Scale Total 0 05/27/2024 The thought [...] returned to schedule. Please contact Blanca at [phone]. Thank you. * Telephone Encounter - Steffany Brady OSA - 06/15/2024 8:54 AM EDT Left message * Telephone Encounter - Blanca Schaefer RN - 06/15/2024 7:48 AM EDT [place] is signed. Scheduling: please call patient to schedule 3 hour appt "infed" (Margaret Backer). Thanks! * Telephone Encounter - Margaret Upton LPN - 06/11/2024 3:33 PM EDT Order received for InFed. [place] plan build and routed to p [id number]. No prior authorization required. Awaiting provider signature before scheduling patient. documented in this encounter Plan of Treatment Upcoming Encounters Date Type Department Care Team (Late st Contact Info) Description 06/16/2024 10:45 AM EDT Office Visit Gynecology/Obstetrics Cristino [facility] 132 [place] [address] Loreto Vallejo MD [address] [place] [address] Mike Non Stress Tests [place] 132 [facility] [place] [address] 06/24/2024 10:00 AM EDT Pharmacy Pharmacy, [address] [id number] Clinic, [place] [address] [place] [address] 06/24/2024 2:30 PM EDT Office Visit Patient Financial Counselor Obstetrics Maternal Medicine, [address] [phone] Eleazar Iverson MD [facility] [place] [place] [address] 06/24/2024 2:30 PM EDT Imaging Radiology [facility], [place] [address] [place] [address] Health Maintenance Due Date Last Done Comments [...] filedocumented as of this encounter Care Teams Primary Therapist Relationship Specialty Start Date End Date Maldonado Latif CRNP [address] [facility] 2 [place] [address] PCP - General Nurse Practitioner 03/10/21 documented as of this encounter
--- OUTSIDE RECORDS SUMMARY | 2024-07-15 07:06 | External Medical Summary | Summary of Care ---
Author Name Unknown Organization [facility] Address [address] [place] [address] Phone [phone] Care Team Providers Care Commercial Review Appraiser Name Role Phone Maldonado Latif Primary Care Provider Reason for Visit * Reason Onset Date Comments Medication Pre-auth 06/11/2024 InFed Encounter Details Date Type Department Care Team (Late st Contact Info) Description 06/11/2024 Telephone Hematology/Oncology Treatment, [place] [address] [place] [address] Backer, PRISCILLA Puga [address] [place] [address] Medication Pre-auth (InFed) Allergies No known active allergiesdocumented as of this encounter (statuses as of 06/15/2024) Medications Medication Sig Dispensed Refills Start Date End Date Status Pediatric Qaavykdl-Reirayca-X (FLINTSTONES COMPLETE) CHEW Take 1 Tab by mouth 2 times a day. Active Levothyroxine Sodium 25 MCG Oral Tablet (Levo-T) Pt taking 125 mcg 07/12/2020 Active Vitamin D3 1.25 MG (71021 UT) Oral Capsule Take 1 Capsule by mouth once a week. 12/17/2023 Active Gummies 0.18-25 MG Oral Tablet Chewable Take by mouth. Activ e KaaiTouch Verio Flex System w/Device KitIndications:Superv ision of high risk in second trimester,Previous gastric bypass affecting , antepartum Use to test blood sugars 4 times daily for 7 days, between 26-28 weeks. (fasting, 1 hour after breakfast, lunch, and dinner) 1 Kit 03/18/2024 Active KaaiTouch Verio In Vitro Strip (Glucose Blood)Indications:Sup ervision of high risk in second trimester,Previous gastric bypass affecting , antepartum Use to test blood sugars 4 times daily (fasting, 1 hour after breakfast, lunch, and dinner) 125 Strip 6 03/18/2024 Active KaaiTouch Delica Lancets 30GIndications:Superv ision of high risk [...] gestation 12/13 Supervision of high risk in [facility] 12/23/2023 Obesity in , antepartum 12/23/2023 [...] baby Was seen in the past by [facility] Endocrinology (last visit 07/2020) Thyroid ultrasound [...] patient is s/p laprascopic gastric bypass at [facility] on May 19, 2009. Last seen [...] -Vitamin D 800 IU daily -Calcium citrate 5062-4954 mg daily (better absorbed than calcium carbonate) [...] money to get more. Never true 02/06/2024 [place] Depression Scale Answer Date Recorded [place] Depression Scale Total 0 05/27/2024 The thought [...] Schaefer RN - 06/15/2024 7:48 AM EDT [place] is signed. Scheduling: please call patient to schedule 3 hour appt "catalinaed" (Margaret Backer). Thanks! * Telephone Encounter - Margaret Upton LPN - 06/11/2024 3:33 PM EDT Order received for InFed. [place] plan build and routed to p [id number]. No prior authorization required. Awaiting provider signature before scheduling patient. documented in this encounter Plan of Treatment Upcoming Encounters Date Type Department Care Team (Late st Contact Info) Description 06/16/2024 10:45 AM EDT Office Visit Gynecology/Obstetrics [facility] [place] [address] Loreto Vallejo MD [address] [place] [address] [place], [place] [id number] [facility] 132 [place] [address] 06/24/2024 10:00 AM EDT Pharmacy Pharmacy, [place] [address] [place] [address] Clinic, [facility] [address] [place] [address] 06/24/2024 2:30 PM EDT Office Visit Musical Instruments Assembler Obstetrics Maternal Medicine, [place] [address] [place] [address] Eleazar Iverson MD [address] [place], [place] [id number] 06/24/2024 2:30 PM EDT Imaging Radiology [facility] [place], [place] [address] [place], [place] [address] Health Maintenance Due Date Last Done Comments [...] filedocumented as of this encounter Care Teams Commercial Review Appraiser Relationship Specialty Start Date End Date Maldonado Latif CRNP [address] [facility] 2 [place] [address] PCP - General Nurse Practitioner 03/10/21 documented as of this encounter
--- OUTSIDE RECORDS SUMMARY | 2024-07-15 07:07 | External Medical Summary | Summary of Care ---
Author Name Unknown Organization [facility] Address [address] [place] [address] Phone [phone] Care Team Providers Care Epic Cupid Specialists Name Role Phone Maldonado Latif Primary Care Provider Reason for Visit * Reason Onset Date Comments Anemia Follow-Up 06/10/2024 * Evaluate & Treat - Unlimited Visits (Within 10 days (routine)) - Authorized Specialty Diagnoses / Procedures Referred By Mckay quevedo Referred To Contact Pharmacist / Pharmacy Diagnoses PHILOMENA (iron deficiency anemia) Margaret Uribe CRNP [address] [place] [address] Referral ID Status Reason Start Date Expiration Date Visits Requested Visits Authorized [id number] Authorized Specialty Services Required 06/04/2024 12/01/2024 99 [phone] Encounter Details Date Type Department Care Team (Late st Contact Info) Description 06/10/2024 4:00 PM EDT Pharmacy Pharmacy, [place] [address] [place], [place] [id number] Clinic, Anemia [address] [place] [address] Iron deficiency anemia, unspecified iron deficiency anemia type* Allergies No known active allergiesdocumented as of this encounter (statuses as of 06/10/2024) Medications Medication Sig Dispensed Refills Start Date End Date Status Pediatric Kpurqhen-Zefxxavm-U (FLINTSTONES COMPLETE) CHEW Take 1 Tab by mouth 2 times a day. Active Levothyroxine Sodium 25 MCG Oral Tablet (Levo-T) Pt taking 125 mcg 07/12/2020 Active Vitamin D3 1.25 MG (13712 UT) Oral Capsule Take 1 Capsule by [...] lunch, and dinner) 1 Kit 03/18/2024 Active Bio-Tree SystemsTouch Verio In Vitro Strip (Glucose Blood)Indications:Sup ervision of high risk in second trimester,Previous gastric bypass affecting , antepartum Use to test blood sugars 4 times daily (fasting, 1 hour after breakfast, lunch, and dinner) 125 Strip 6 03/18/2024 Active Bio-Tree SystemsTouch Delica Lancets 30GIndications:Superv ision of high risk in second trimester,Previous gastric bypass affecting , antepartum Use to test blood sugars 4 times daily (fasting, 1 hour after breakfast, lunch, and dinner) 200 Each 6 03/18/2024 Active documented as of this encounter (statuses as of 06/10/2024) Active Problems Problem Noted Date Diagnosed Date Antepartum anemia complicating 024 Overview: Referred for iron infusions at 28 wks with 11 completed weeks gestation 12/13 Supervision of high risk in [facility] 12/23/2023 Obesity in , antepartum 12/23/2023 Overview: [...] baby Was seen in the past by [facility] Endocrinology (last visit 07/2020) Thyroid ultrasound reveal [...] patient is s/p laprascopic gastric bypass at [facility] on May 19, 2009. Last seen [...] -Vitamin D 800 IU daily -Calcium citrate 8424-0885 mg daily (better absorbed than calcium carbonate) [...] post dates, due to arrest of dilatation 2018 2023 Plan: undecided at this time Intestinal postoperative nonabsorption 0 Hypothyroidism 11/27/2019 Iron deficiency anemia 12/08/2018 Estimated Date of Delivery Comme nts Yes 07/19/2024 Based on Ultraso und documented as of this encounter (statuses as of 06/10/2024) Resolved Problems Problem Noted Date Diagnosed Date [...] as of this encounter (statuses as of 06/10/2024) Immunizations Name Administration Dates Next Due HPV [...] money to get more. Never true 02/06/2024 Rogers Depression Scale Answer Date Recorded Rogers Depression Scale Total 0 05/27/2024 The thought [...] Progress Notes * Charley Villa, [facility] - 06/10/2024 3:03 PM EDT Patient Phone Numbers Patient referred by PRISCILLA Atwood for evaluation of anemia by the Anemia Clinic. Called patient to introduce role/clinic and to review labs from 06/09. LMOVM. Hgb: 9.9 g/dL TSAT: 7 % Ferritin: 8 ng/mL GA: 34w3d Estimated Date of Delivery: 07/19/24 Hgb is below target range for the third trimester. Iron studies below target range. Oral iron replenishment inadequate or contraindicated. Patient qualifies for IV iron repletion. Tentative Plan: Iron dextran (INFeD) 1000 mg IV x 1 dose. Orders need to be placed and routed to appropriate parties at [facility] if patient agreeable to intervention. Follow-up labs to be scheduled ~4-6 weeks after iron repletion completed if appropriate prior to delivery. Anemia Clinic will continue to follow. Thank you for allowing us to participate in the care of thispatient. Thanks, Charley Villa [facility] Clinical Pharmacist [facility]emia [facility] (P: [phone]) 06/10/2024 3:03 PM documented in this encounter Plan of Treatment Upcoming Encounters Date Type Department Care Team (Late st Contact Info) Description 06/16/2024 10:45 AM EDT Office Visit Gynecology/Obstetrics Cristino Mckeon [address] [facility] [place] [address] Loreto Vallejo MD [address] [facility] [place] [address] Ally Mckeon Stress Tests [place] [address] [facility] [place] [address] 06/17/2024 4:00 PM EDT Pharmacy Pharmacy, [place] [address] [place] [address] Clinic, Anemia [address] [place] [address] 06/24/2024 2:30 PM EDT Office Visit Refractory Products Supervisor Obstetrics Maternal Medicine, [place] [address] [place] [address] Eleazar Iverson MD [address] [place] [address] 06/24/2024 2:30 PM EDT Imaging [facility] [address] [place] [address] Scheduled Referrals Name Type Priority Associated Diagnoses [...] Completed 4, 01/09/2014, 07/15/2007, Additional history exists HIV Screening Completed 12/23/2023 Hepatitis C Screening Completed 12/23/2023 , 12/23/2023, 12/23/2023 Pneumococcal Vaccine: Pediatrics (0 to 5 Years) and At-Risk Patients (6 to 64 Years) Aged Out No longer eligible based on patient's age to complete this topic documented as of this encounter Medical Devices Not on filedocumented as of this encounter Visit Diagnoses Diagnosis Iron deficiency anemia, unspecified iron deficiency anemia type- Primary documented in this encounter Care Teams Epic Cupid Specialists Relationship Specialty Start Date End Date Maldonado Latif CRNP [address] [facility] [address] [place] [address] PCP - General Nurse Practitioner 03/10/21 documented as of this encounter
--- OUTSIDE RECORDS SUMMARY | 2024-07-15 07:07 | External Medical Summary ---
Author Name Unknown Address Unknown Organization [id number]:[facility] [place] [address] [address] Laboratory Report Ordering Provider Test Date Status LUDIVINA LOVINGTOPHER 06/09/2024 14:46:56 Final Observation Date Value Abnormality Reference (Units ) Status Creatinine 06/09/2024 14:46:56 0.7 0.5-1.0 (mg/dL) Final Glomerular filtration rate/1.73 sq M.predicted [Volume Rate/Area] in Serum, Plasma or Blood by Creatinine-based formula (CKD-EPI) 06/09/2024 14:46:56 >90 >=60 (mL/min) Final eGFR is calculated based on the CKD-EPI 2020 equation. Performing Location [facility] [place] [address] [place] [address]
--- OUTSIDE RECORDS SUMMARY | 2024-07-15 07:07 | External Medical Summary | Summary of Care ---
Author Name Unknown Organization [facility] Address [address] [place] [address] Phone [phone] Care Team Providers Care Professor Of Vegetable Science Name Role Phone Maldonado Latif Primary Care Provider Reason for Referral * Evaluate & Treat - Unlimited Visits (Within 10 days (routine)) Specialty Diagnoses / Procedures Referred By Mckay quevedo Referred To Contact Margaret Uribe CRNP [address] [place] [address] Referral ID Status Reason Start Date Expiration Date V isits Requested Visits Authorized Specialty Services Required Question Answer Referral Priority Within 10 days (routine) Where should this appointment be scheduled? [facility] Reason for Visit * Reason Onset Date Comments Test Results 04/29/2024 Encounter Details Date Type Department Care Team (Late st Contact Info) Description 04/29/2024 Telephone Gynecology/Obstetrics [facility] [address] [place] [address] Margaret Uribe CRNP [address] [place] [address] Test Results Allergies No known active allergiesdocumented as of this encounter (statuses as of 06/04/2024) Medications Medication Sig Dispensed Refills Start Date End Date Status Pediatric Bbsglpjr-Iaipskov-L (FLINTSTONES COMPLETE) CHEW Take 1 Tab by mouth 2 times a day. Active Levothyroxine Sodium 25 MCG Oral Tablet (Levo-T) Pt taking 125 mcg 07/12/2020 Active Vitamin D3 1.25 MG (42783 UT) Oral Capsule Take 1 Capsule by [...] lunch, and dinner) 1 Kit 03/18/2024 Active SellfTouch Kadrianaio In Vitro Strip (Glucose Blood)Indications:Sup ervision of high risk in second trimester,Previous gastric bypass affecting , antepartum Use to test blood sugars 4 times daily (fasting, 1 hour after breakfast, lunch, and dinner) 125 Strip 6 03/18/2024 Active SellfTouch Delica Lancets 30GIndications:Superv ision of high risk in second trimester,Previous gastric bypass affecting , antepartum Use to test blood sugars 4 times daily (fasting, 1 hour after breakfast, lunch, and dinner) 200 Each 6 03/18/2024 Active documented as of this encounter (statuses as of 06/04/2024) Active Problems Problem Noted Date Diagnosed Date Antepartum anemia complicating 024 Overview: Referred for iron infusions at 28 wks with 11 completed weeks gestation 12/13 Supervision of high risk in [facility] 12/23/2023 Obesity in , antepartum [...] baby Was seen in the past by [facility] Endocrinology (last visit 07/2020) Thyroid ultrasound reveal [...] patient is s/p laprascopic gastric bypass at [facility] on May 19, 2009. Last seen [...] -Vitamin D 800 IU daily -Calcium citrate 8605-3950 mg daily (better absorbed than calcium carbonate) [...] time Intestinal postoperative nonabsorption 0 Hypothyroidism 11/27/2019 Estimated Date of Delivery Comme nts Yes 07/19/2024 Based on Ultraso und documented as of this encounter (statuses as of 06/04/2024) Resolved Problems Problem Noted Date Diagnosed Date Resolved Date Iron deficiency anemia secdavid fountainy to inadequate dietary iron intake 12/08/2018 4 H/O section 12/02/2017 018 Overview: Desires TOLAC. [...] as of this encounter (statuses as of 06/04/2024) Immunizations Name Administration Dates Next Due HPV [...] money to get more. Never true 02/06/2024 Ethel Depression Scale Answer Date Recorded Ethel Depression Scale Total 0 12/23/2023 The thought of harming myself has occurred to me . Never 12/23/2023 Childcare Answer Date Recorded Do you feel [...] encounter Miscellaneous Notes * Telephone Encounter - Delmis Borrero LPN - 05/01/2024 9:08 AM EDT Patient spoke to blood management and is agreeable. * Telephone Encounter - Simona Vu RN - 04/29/2024 3:20 PM EDT left message for patient to call office * Telephone Encounter - Margaret Uribe CRNP - 04/29/2024 12:37 PM EDT Hgb <11, anemic - recommend iron infusions. Referral sent. PRISCILLA Carey documented in this encounter Plan of Treatment Upcoming Encounters Date Type Department Care Team (Late st Contact Info) Description 06/10/2024 10:30 AM EDT Office Visit Gynecology/Obstetrics [facility] [address] [place] [address] Kiah Morley, DNP, CNM [address] [place] [address] [facility], Ally Stress Tests [facility] [address] [place] [address] 06/24/2024 2:30 PM EDT Office Visit Poultry Processor [facility] [place] [address] [place] [address] Eleazar Iverson MD [address], [place] [id number] 06/24/2024 2:30 PM EDT Imaging Radiology [facility] [address] [place] [address] Scheduled Referrals Name Type Priority Associated Diagnoses Orde r Schedule BLOOD MANAGEMENT REFERRAL Referral Within 10 days (routine) Antepartum anemia complicating Ordered: 04/29/2024 Health Maintenance Due Date Last Done Comments [...] as of this encounter Visit Diagnoses Diagnosis Antepartum anemia complicating - Primary Anemia, antepartum documented in this encounter Care Teams Professor Of Vegetable Science Relationship Specialty Start Date End Date Maldonado Latif CRNP [address] [facility] [address] [place] [address] PCP - General Nurse Practitioner 03/10/21 documented as of this encounter
--- OUTSIDE RECORDS SUMMARY | 2024-07-15 07:07 | External Medical Summary | Summary of Care ---
Author Name Unknown Organization [facility] Address [address] [place] [address] Phone [phone] Care Team Providers Care System Analyst Name Role Phone Maldonado Latif Primary Care Provider Reason for Visit * Reason Comments Outpatient Testing Encounter Details Date Type Department Care Team (Late st Contact Info) Description 06/09/2024 2:40 PM EDT Laboratory Laboratory, [place] [address] [place] [address] [place], Laboratory [address] [place] [address] PHILOMENA (iron deficiency anemia) Allergies No known active allergiesdocumented as of this encounter (statuses as of 06/09/2024) Medications Medication Sig Dispensed Refills Start Date End Date Status Pediatric Zfjlgydt-Tuupylkf-L (FLINTSTONES COMPLETE) CHEW Take 1 Tab by mouth 2 times a day. Active Levothyroxine Sodium 25 MCG Oral Tablet (Levo-T) Pt taking 125 mcg 07/12/2020 Active Vitamin D3 1.25 MG (48065 UT) Oral Capsule Take 1 Capsule by mouth once a week. 12/17/2023 Active Gummies 0.18-25 MG Oral Tablet Chewable Take by mouth. Activ e KnowledgestreemTouch Verio Flex System w/Device KitIndications:Superv ision of [...] as of this encounter (statuses as of 06/09/2024) Active Problems Problem Noted Date Diagnosed Date Antepartum anemia complicating 024 Overview: Referred for iron infusions at 28 wks with 11 completed weeks gestation 12/13 Supervision of high risk in [facility] 12/23/2023 Obesity in , antepartum 12/23/2023 [...] -Vitamin D 800 IU daily -Calcium citrate 1280-5728 mg daily (better absorbed than calcium carbonate) [...] as of this encounter (statuses as of 06/09/2024) Resolved Problems Problem Noted Date Diagnosed Date Resolved Date Iron deficiency anemia secon luz maria to inadequate dietary iron intake 12/08/2018 4 [...] as of this encounter (statuses as of 06/09/2024) Immunizations Name Administration Dates Next Due HPV [...] money to get more. Never true 02/06/2024 Woodburn Depression Scale Answer Date Recorded Woodburn Depression Scale Total 0 05/27/2024 The thought [...] Team (Late st Contact Info) Description 06/10/2024 8:00 AM EDT Pharmacy Pharmacy, [place] [address] [place] [address] Clinic, [facility] [address] [place] [address] 06/10/2024 10:30 AM EDT Office Visit Gynecology/Obstetrics Cristino Mckeon [address] [facility] [place] [address] Kiah Morley, DNP, CNM [address] [facility] [place] [address] Mc[place], Ally Stress Tests [place] [address] [facility] [address] 06/24/2024 2:30 PM EDT Office Visit Button Grader Obstetrics Maternal Medicine, [place] [address] [place] [address] Eleazar Iverson MD [address] [place] [address] 06/24/2024 2:30 PM EDT Imaging Radiology [facility] [place], [place] [address] [place], [place] [phone] Pending Results Name Type Priority Associated Diagnoses Date /Time CBC WITH WBC DIFFERENTIAL AND ANEMIA REFLEX WORKUP Lab Routine PHILOMENA (iron deficiency anemia) 06/09/2024 2:46 PM EDT ANEMIA CBC Lab Routine PHILOMENA (iron deficiency anemia) 06/09/2024 2:46 PM EDT DIFFERENTIAL, AUTOMATED Lab Routine PHILOMENA (iron deficiency anemia) 06/09/2024 2:46 PM EDT ANEMIA REFLEX CHEMISTRY HOLD Lab Routine PHILOMENA (iron deficiency anemia) 06/09/2024 2:46 PM EDT Health Maintenance Due Date Last Done Comments [...] Completed , 01/09/2014, 07/15/2007, Additional history exists HIV Screening [...] encounter Visit Diagnoses Diagnosis PHILOMENA (iron deficiency anemia) Iron deficiency anemia, unspecified documented in this encounter Care Teams System Analyst Relationship Specialty Start Date End Date Maldonado Latif CRNP [address] [address] PCP - General Nurse Practitioner 03/10/21 documented as of this encounter
--- OUTSIDE RECORDS SUMMARY | 2024-07-15 07:07 | External Medical Summary ---
Author Name Unknown Address Unknown Organization K01:[facility] [place] [address] [facility] [address] Laboratory Report Ordering Provider Test Date Status INDERBACKER 06/09/2024 14:46:56 Final Observation Date Value Abnormality Reference (Units ) Status SYNC LEUKOCYTES IN BLOOD BY AUTOMATED COUNT 06/09/2024 14:46:56 11.49 Above high normal 4.00-10.80 (K/uL) Final Segs 06/09/2024 14:46:56 73.0 40.0-75.0 (%) Final Lymphs % 06/09/2024 14:46:56 18.3 18.0-42.0 (%) Final Monos 06/09/2024 14:46:56 6.4 1.0-11.0 (%) Final Eosinophils 06/09/2024 14:46:56 1.7 0.0-6.0 (%) Final Basos 06/09/2024 14:46:56 0.3 0.0-2.0 (%) Final Immature Granulocyte, Percent 06/09/2024 14:46:56 0.3 0.0-2.0 (%) Final Absolute Segs 06/09/2024 14:46:56 8.39 Above high normal 1.80-7.70 (K/uL) Final Lymphs, absolute 06/09/2024 14:46:56 2.10 1.00-4.80 (K/ul) Final Monos, Abs 06/09/2024 14:46:56 0.74 0.00-1.10 (K/uL) Final Eos, Abs 06/09/2024 14:46:56 0.19 0.00-0.70 (K/uL) Final Basos, Abs 06/09/2024 14:46:56 0.03 0.00-0.20 (K/uL) Final Immature Granulocytes, Number 06/09/2024 14:46:56 0.04 0.00-0.20 (K/uL) Final Performing Location [facility] [place] [address] [facility] [address]
--- OUTSIDE RECORDS SUMMARY | 2024-07-15 07:07 | External Medical Summary ---
Author Name Unknown Address Unknown Organization K01:[facility] [place] [facility] [address] [facility] [address] Laboratory Report Ordering Provider Test Date Status LUDIVINA LOVINGER 06/09/2024 14:46:56 Final Observation Date Value Abnormality Reference (Units ) Status Retic, % (auto) 06/09/2024 14:46:56 1.74 0.80-1.90 (%) Final Reticulocytes, Absolute 06/09/2024 14:46:56 65.3 31.3-100.1 (K/uL) Final Reticulocyte fraction, immature 06/09/2024 14:46:56 25.7 Above high normal 2.5-20.6 (%) Final Reticulocyte HGB 06/09/2024 14:46:56 25.6 Below low normal 29.7-37.4 (pg) Final Performing Location LABORATORY [facility] - [address] [facility] [address]
--- OUTSIDE RECORDS SUMMARY | 2024-07-15 07:07 | External Medical Summary | Summary of Care ---
Author Name Unknown Organization [facility] Address [address] [place] [address] Phone [phone] Care Team Providers Care Leather Fitter Name Role Phone Maldonado Latif Primary Care Provider Encounter Details Date Type Department Care Team (Late st Contact Info) Description 05/28/2024 Telephone [facility] Gynecology and Obstetrics [address] [place], [place] [phone] Kenia Fregoso, [facility] [address] [place], [place] [phone] Allergies No known active allergiesdocumented as of this encounter (statuses as of 06/08/2024) Medications Medication Sig Dispensed Refills Start Date End Date Status Pediatric Mtzpiyyk-Rhtjzcgw-Q (FLINTSTONES COMPLETE) CHEW Take 1 Tab by mouth 2 times a day. Active Levothyroxine Sodium 25 MCG Oral Tablet (Levo-T) Pt taking 125 mcg 07/12/2020 Active Vitamin D3 1.25 MG (60095 UT) Oral Capsule Take 1 Capsule by [...] as of this encounter (statuses as of 06/08/2024) Active Problems Problem Noted Date Diagnosed Date Antepartum anemia complicating 024 Overview: Referred for iron infusions at 28 wks with 11 completed weeks gestation 12/13 Supervision of high risk in [facility] 12/23/2023 Obesity in , antepartum [...] baby Was seen in the past by [facility] Endocrinology (last visit 07/2020) Thyroid ultrasound reveal [...] patient is s/p laprascopic gastric bypass at [facility] on May 19, 2009. Last seen by [...] -Vitamin D 800 IU daily -Calcium citrate 9252-8834 mg daily (better absorbed than calcium carbonate) [...] as of this encounter (statuses as of 06/08/2024) Resolved Problems Problem Noted Date Diagnosed Date Resolved Date Iron deficiency anemia freddy loera to inadequate dietary iron intake 12/08/2018 4 [...] as of this encounter (statuses as of 06/08/2024) Immunizations Name Administration Dates Next Due HPV [...] money to get more. Never true 02/06/2024 Desmet Depression Scale Answer Date Recorded Desmet Depression Scale Total 0 05/27/2024 The thought [...] Miscellaneous Notes * Telephone Encounter - Margaret Uribe CRNP - 06/05/2024 10:03 AM EDT Kenia is out - I would advise at least 1 week, 2 even better. PRISCILLA Carey * Telephone Encounter - Rebekah Huggins RN - 06/04/2024 12:17 PM EDT Patient called and made aware of recommendations below. Patient had to do finger sticks in substitute of Glucola in 3rd trimester due to low blood sugar when she did the early Glucola. Patient is asking if she starts rechecking glucose again due to polyhydramnios, how many days does she needs to dothis? Please advise. Patient okay with My G message for response. * Telephone Encounter - Rebekah Huggins RN - 06/04/2024 11:58 AM EDT Attempted to call patient. No answer, LVM to return call. * Telephone Encounter - Jackie Flor RN - 05/29/2024 8:31 AM EDT T/C to pt. No answer. VM left for pt to return call to office. * Telephone Encounter - Kenia Fregoso CNM - 05/28/2024 5:17 PM EDT Covering for Kiah. Dr. Murray from [facility] recommended repeating blood sugar testing due to very mild polyhydramnios. I have placed an order for a 1 hour GTT. Please have patient complete this as soon as possible. She does not need to be fasting. Thanks! Kenia Fregoso CNM documented in this encounter Plan of Treatment Upcoming Encounters Date Type Department Care Team (Late st Contact Info) Description 06/08/2024 8:00 AM EDT Pharmacy Pharmacy, [place] [address] [place] [address] Clinic, Anemia [address] [place] [address] 06/10/2024 10:30 AM EDT Office Visit Gynecology/Obstetrics [facility] [address] [facility] [place] [address] Kiah Morley, JAKY, AUGI[place] [address] [place] [address] [place] [address] Ally Mckeon Stress Tests [place] [address] [place] [address] 06/24/2024 2:30 PM EDT Office Visit Circuit Walker Obstetrics Maternal Medicine, [place] [address] [place] [address] Eleazar Iverson MD [address] [place] [address] 06/24/2024 2:30 PM EDT [facility] [place] [address] [place] [address] Scheduled Orders Name Type Priority Associated Diagnoses Orde r Schedule 50-G GESTATIONAL GLUCOSE, 1 HOUR Lab Routine Polyhydramnios, antepartum, single or unspecified fetus Expected: 05/28/2024, Expires: 05/28/2025 Health Maintenance Due Date Last Done Comments [...] as of this encounter Visit Diagnoses Diagnosis Polyhydramnios, antepartum, single or unspecified fetus- Primary documented in this encounter Care Teams Leather Fitter Relationship Specialty Start Date End Date Maldonado Latif CRNP [address] [address] PCP - General Nurse Practitioner 03/10/21 documented as of this encounter
--- OUTSIDE RECORDS SUMMARY | 2024-07-15 07:07 | External Medical Summary ---
Author Name Unknown Address Unknown Organization K01:LABORATORY [facility] [place] - [address] [facility] [address] Laboratory Report Ordering Provider Test Date Status INDERBACKER 06/09/2024 14:46:56 Final Observation Date Value Abnormality Reference (Units ) Status WBC, Total 06/09/2024 14:46:56 11.49 Above high normal 4 .00-10.80 (K/uL) Final RBC 06/09/2024 14:46:56 3.84 3.85-5.15 (M/uL) Final Hemoglobin 06/09/2024 14:46:56 9.9 Below low normal 12 .0-15.3 (g/dL) Final Anemia reflex testing trigge rs on a HGB < 12.0 for Females and HGB < 13.0 for Males in accordance with the WHO Anemia Guidelines
Anemia reflex testing triggers on a HGB < 12.0 for Females and HGB < 13.0 for Males in accordance with the WHO Anemia Guidelines HCT 06/09/2024 14:46:56 33.8 Below low normal 36. 0-45.2 (%) Final MCV 06/09/2024 14:46:56 88.0 81.5-97.5 (fL) Final MCH 06/09/2024 14:46:56 25.8 27.0-34.0 (pg) Final MCHC 06/09/2024 14:46:56 29.3 32.0-36.0 (g/dL) Final RDW 06/09/2024 14:46:56 14.9 11.5-15.5 (%) Final Platelets 06/09/2024 14:46:56 275 140-400 (K /uL) Final MPV 06/09/2024 14:46:56 9.9 6.6-11.1 ( fL) Final Nucleated erythrocytes/100 leukocytes [Ratio] in Blood by Automated count 06/09/2024 14:46:56 0 <=0 (/100 WBCs) Final Performing Location LABORATORY [facility] - [address] [facility] [address]
--- OUTSIDE RECORDS SUMMARY | 2024-07-15 07:07 | External Medical Summary | Summary of Care ---
Author Name Unknown Organization [facility] Address [address] [place] [address] Phone [phone] Care Team Providers Care Business Area Director Name Role Phone Maldonado Latif Primary Care Provider Encounter Details Date Type Department Care Team (Late st Contact Info) Description 06/06/2024 Orders Only PATIENT PORTAL DO NOT DELETE THIS DEPT [id number] Allergies No known active allergiesdocumented as of this encounter (statuses as of 06/06/2024) Medications Medication Sig Dispensed Refills Start Date End Date Status Pediatric Klxszetn-Qiissnct-N (FLINTSTONES COMPLETE) CHEW Take 1 Tab by mouth 2 times a day. Active Levothyroxine Sodium 25 MCG Oral Tablet (Levo-T) Pt taking 125 mcg 07/12/2020 Active Vitamin D3 1.25 MG (63607 UT) Oral Capsule Take 1 Capsule by [...] and dinner) 125 Strip 6 03/18/2024 Active Lasah Dean 30GIndications:Superv ision of high risk in second trimester,Previous gastric bypass affecting , antepartum Use to test blood sugars 4 times daily (fasting, 1 hour after breakfast, lunch, and dinner) 200 Each 6 03/18/2024 Active documented as of this encounter (statuses as of 06/06/2024) Active Problems Problem Noted Date Diagnosed Date Antepartum anemia complicating 024 Overview: Referred for iron infusions at 28 wks with 11 completed weeks gestation 12/13 Supervision of high risk in first trim martina 12/23/2023 Obesity in , antepartum 12/23/2023 Overview: [...] baby Was seen in the past by [facility] Endocrinology (last visit 07/2020) Thyroid ultrasound [...] patient is s/p laprascopic gastric bypass at [facility] on May 19, 2009. Last seen [...] -Vitamin D 800 IU daily -Calcium citrate 3123-7695 mg daily (better absorbed than calcium carbonate) [...] as of this encounter (statuses as of 06/06/2024) Resolved Problems Problem Noted Date Diagnosed Date [...] as of this encounter (statuses as of 06/06/2024) Immunizations Name Administration Dates Next Due HPV [...] money to get more. Never true 02/06/2024 [place] Depression Scale Answer Date Recorded [place] Depression Scale Total 0 05/27/2024 The thought [...] Description 06/08/2024 8:00 AM EDT Pharmacy Pharmacy, [address] [address] [facility] [address] [place] [address] 06/10/2024 10:30 AM EDT Office Visit Gynecology/Obstetrics Cristino Mckeon [address] [facility] [place] [address] Kiah Morley, JAKY, CNM [address] [facility] [place] [address] Ally Mckeon Stress Tests [place] [address] [facility] [place] [address] 06/24/2024 2:30 PM EDT Office Visit Personal Development Coach Obstetrics Maternal Medicine, [place] [address] [place] [address] Eleazar Iverson MD [address] [place] [address] 06/24/2024 2:30 PM EDT Imaging Radiology [facility] [place], [place] [address] [place] [address] Health Maintenance Due Date Last Done Comments [...] filedocumented as of this encounter Care Teams Business Area Director Relationship Specialty Start Date End Date Maldonado Latif CRNP [address] [facility] 2 [place] [address] PCP - General Nurse Practitioner 03/10/21 documented as of this encounter
--- OUTSIDE RECORDS SUMMARY | 2024-07-15 07:07 | External Medical Summary | Summary of Care ---
Author Name Unknown Organization [facility] Address [address] [place] [address] Phone [phone] Care Team Providers Care Saddle Maker Name Role Phone Maldonado Latif Primary Care Provider Reason for Visit * Reason Comments Outpatient Testing Encounter Details Date Type Department Care Team (Late st Contact Info) Description 06/09/2024 2:40 PM EDT Laboratory Laboratory, [place] [address] [place] [address] [place], Laboratory [address] [place] [address] PHILOMENA (iron deficiency anemia) Allergies No known active allergiesdocumented as of this encounter (statuses as of 06/10/2024) Medications Medication Sig Dispensed Refills Start Date End Date Status Pediatric Rhkvaqzn-Xjclfxqh-Q (FLINTSTONES COMPLETE) CHEW Take 1 Tab by mouth 2 times a day. Active Levothyroxine Sodium 25 MCG Oral Tablet (Levo-T) Pt taking 125 mcg 07/12/2020 Active Vitamin D3 1.25 MG (90444 UT) Oral Capsule Take 1 Capsule by mouth once a week. 12/17/2023 Active Gummies 0.18-25 MG Oral Tablet Chewable Take by mouth. Activ e TriplTouch Verio Flex System w/Device KitIndications:Superv ision of [...] gestation 12/13 Supervision of high risk in [facility] 12/23/2023 Obesity in , antepartum 12/23/2023 Overview: [...] baby Was seen in the past by [facility] Endocrinology (last visit 07/2020) Thyroid ultrasound [...] patient is s/p laprascopic gastric bypass at [facility] on May 19, 2009. Last [...] -Vitamin D 800 IU daily -Calcium citrate 9166-9186 mg daily (better absorbed than calcium carbonate) [...] money to get more. Never true 02/06/2024 [place] Depression Scale Answer Date Recorded [place] Depression Scale Total 0 05/27/2024 The thought [...] as of this encounter Miscellaneous Notes * Result Encounter Note - Margaret Uribe CRNP - 06/10/2024 11:41 AM EDT Pt scheduled with anemia clinic for IV iron documented in this encounter Plan of Treatment Upcoming Encounters Date Type Department Care Team (Late st Contact Info) Description 06/10/2024 4:00 PM EDT Pharmacy Pharmacy, [place] [address] [place] [address] Clinic, Anemia [address] [place] [address] 06/24/2024 2:30 PM EDT Office Visit Doffer Obstetrics Maternal Medicine, [place] [address] [place] [address] Eleazar Iverson MD [address] [place] [address] 06/24/2024 2:30 PM EDT Imaging [facility]iology [facility], [place] [address] [place], [place] [id number] Health Maintenance Due Date Last Done Comments [...] Not on filedocumented as of this encounter Procedures Procedure Name Priority Date/Time Associated Diagnosis Comments ANEMIA REFLEX CHEMISTRY HOLD Routine 06/09/2024 2:46 PM EDT PHILOMENA (iron deficiency anemia) ANEMIA CBC Routine 06/09/2024 2:46 PM EDT PHILOMENA (iron deficiency anemia) DIFFERENTIAL, AUTOMATED Routine 06/09/2024 2:46 PM EDT PHILOMENA (iron deficiency anemia) DIFFERENTIAL, AUTOMATED Routine 06/09/2024 2:46 PM EDT PHILOMENA (iron deficiency anemia) RETICULOCYTE PANEL Routine 06/09/2024 2 :46 PM EDT PHILOMENA (iron deficiency anemia) IRON SCREEN, INCLUDING TIBC Routine 06/09/2024 2:46 PM EDT PHILOMENA (iron deficiency anemia) CREATININE Routine 06/09/2024 2:46 PM EDT PHILOMENA (iron deficiency anemia) FERRITIN Routine 06/09/2024 2:46 PM EDT PHILOMENA (iron deficiency anemia) documented in this encounter Results * CREATININE (06/09/2024 2:46 PM EDT) [facility] Creatinine 0.7 0.5 - 1.0 mg/dL 06/10/2024 12:27 AM EDT LABORATORY [facility] [place] Estimated Glomerular Filtration Rate >90 >=60 mL/min 06/10/2024 12:27 AM EDT LABORATORY [facility] [place] Comment:eGFR is calculated b ased on the CKD-EPI 2020 equation. Blood Venous blood specimen / Unknown Venipuncture / Unknown 06/09/2024 2:46 PM EDT 06/09/2024 2:46 PM EDT Margaret WELLS LAB BLOOD O RDERABLES LABORATORY [facility] [place] [address] [place] [address] * (ABNORMAL) FERRITIN (06/09/2024 2:46 PM EDT) Pathologist [facility] Ferritin 8(L) 13 - 150 ng/mL 06/10/2024 12:53 AM EDT LABORATORY [facility] Blood Venous blood specimen / Unknown Venipuncture / Unknown 06/09/2024 2:46 PM EDT 06/09/2024 2:46 PM EDT Margaret Vasquez Jojo PARDONP LAB BLOOD O RDERABLES Performing Organization Address [facility] Phone Number LABORATORY [facility] [place] [facility] [address] [place] [address] * (ABNORMAL) IRON SCREEN, INCLUDING TIBC (06/09/2024 2:46 PM EDT) Pathologist [facility] Iron 33 33 - 151 ug/dL 06/10/2024 12:27 AM EDT LABORATORY [facility] [place] Iron Binding Capacity 489(H) 250 - 425 ug/dL 06/10/2024 12:27 AM EDT LABORATORY C Transferrin Saturation Percent 7(L) 15 - 55 % 06/10/2024 12:27 AM EDT LABORATORY [facility] [place] Blood Venous blood specimen / Unknown Venipuncture / Unknown 06/09/2024 2:46 PM EDT 06/09/2024 2:46 PM EDT Margaret [facility]kel [facility] LAB [facility]LOOD O RDERABLES Performing Organization Address [facility] Phone Number LABORATORY [facility] [facility] [address] [place] [address] * (ABNORMAL) RETICULOCYTE PANEL (06/09/2024 2:46 PM EDT) [facility] Reticulocyte Percent 1.74 0.80 - 1.90 % 06/10/2024 12:03 AM EDT LABORATORY [facility] Absolute Reticulocyte 65.3 31.3 - 100.1 K/uL 06/10/2024 12:03 AM EDT LABORATORY C Immature Reticuloctye Fraction 25.7(H) 2.5 - 20.6 % 06/10/2024 12:03 AM EDT LABORATORY [facility] Reticulocyte Hemoglobin 25.6(L) 29.7 - 37.4 pg 06/10/2024 12:03 AM EDT LABORATORY [facility] Blood Venous blood specimen / Unknown Venipuncture / Unknown 06/09/2024 2:46 PM EDT 06/09/2024 2:46 PM EDT Margaret Vasquez Backer SOLAR ELECTRIC/PHOTOVOLTAIC INSTALLER LAB BLOOD O RDERABLES Performing Organization Address City/[facility]/ZIP Co de Phone Number LABORATORY [facility] [address] [place] [address] * ANEMIA REFLEX CHEMISTRY HOLD (06/09/2024 2:46 PM EDT) Blood Venous blood specimen / Unknown Venipuncture / Unknown 06/09/2024 2:46 PM EDT 06/09/2024 2:46 PM EDT Margaret Vasquez Backer SOLAR ELECTRIC/PHOTOVOLTAIC INSTALLER LAB BLOOD O RDERABLES Performing Organization Address City/[facility]/ZIP Co de Phone Number LABORATORY [facility] [address] [place] [address] * (ABNORMAL) DIFFERENTIAL, AUTOMATED (06/09/2024 2:46 PM EDT) WBC 11.49(H) 4.00 - 10.80 K/uL 06/09/2024 11:44 PM EDT LABORATORY [facility] Neutrophils % 73.0 40.0 - 75.0 % 06/09/2024 11:44 PM EDT LABORATORY [facility] Lymphocytes % 18.3 18.0 - 42.0 % 06/09/2024 11:44 PM EDT LABORATORY [facility] Monocytes % 6.4 1.0 - 11.0 % 06/09/2024 11:44 PM EDT LABORATORY [facility] Eosinophils % 1.7 0.0 - 6.0 % 06/09/2024 11:44 PM EDT LABORATORY [facility] Basophils % 0.3 0.0 - 2.0 % 06/09/2024 11:44 PM EDT LABORATORY [facility] Immature Granulocytes % 0.3 0.0 - 2.0 % 06/09/2024 11:44 PM EDT LABORATORY [facility] Absolute Neutrophils 8.39(H) 1.80 - 7.70 K/uL 06/09/2024 11:44 PM EDT LABORATORY [facility] Absolute Lymphocytes 2.10 1.00 - 4.80 K/ul 06/09/2024 11:44 PM EDT LABORATORY [facility] Absolute Monocytes 0.74 0.00 - 1.10 K/uL 06/09/2024 11:44 PM EDT LABORATORY [facility] Absolute Eosinophils 0.19 0.00 - 0.70 K/uL 06/09/2024 11:44 PM EDT LABORATORY [facility] Absolute Basophils 0.03 0.00 - 0.20 K/uL 06/09/2024 11:44 PM EDT LABORATORY [facility] Absolute Immature Granulocytes 0.04 0.00 - 0.20 K/uL 06/09/2024 11:44 PM EDT LABORATORY [facility] Blood Venous blood specimen / Unknown Venipuncture / Unknown 06/09/2024 2:46 PM EDT 06/09/2024 2:46 PM EDT Margaret Vasquez Backer SOLAR ELECTRIC/PHOTOVOLTAIC INSTALLER LAB BLOOD O RDERABLES LABORATORY [facility] [address] [place] [address] * (ABNORMAL) ANEMIA CBC (06/09/2024 2:46 PM EDT) WBC 11.49(H) 4.00 - 10.80 K/uL 06/09/2024 11:44 PM EDT LABORATORY [facility] RBC 3.84 3.85 - 5.15 M/uL 06/09/2024 11:44 PM EDT LABORATORY [facility] HGB 9.9(L) 12.0 - 15.3 g/dL 06/09/2024 11:44 PM EDT LABORATORY [facility] Comment: Anemia reflex testing triggers on a HGB < 12.0 for Females and HGB < 13.0 for Males in accordance with the WHO Anemia Guidelines Anemia reflex testing triggers on a HGB < 12.0 for Females and HGB < 13.0 for Males in accordance with the WHO Anemia Guidelines HCT 33.8(L) 36.0 - 45.2 % 06/09/2024 11:44 PM EDT LABORATORY [facility] MCV 88.0 81.5 - 97.5 fL 06/09/2024 11:44 PM EDT LABORATORY [facility] MCH 25.8 27.0 - 34.0 pg 06/09/2024 11:44 PM EDT LABORATORY [facility] MCHC 29.3 32.0 - 36.0 g/dL 06/09/2024 11:44 PM EDT LABORATORY [facility] RDW 14.9 11.5 - 15.5 % 06/09/2024 11:44 PM EDT LABORATORY [facility] PLT 275 140 - 400 K/uL 06/09/2024 11:44 PM EDT LABORATORY [facility] MPV 9.9 6.6 - 11.1 fL 06/09/2024 11:44 PM EDT LABORATORY [facility] nRBCs 0 <=0 /100 WBCs 06/09/2024 11:44 PM EDT LABORATORY [facility] Blood Venous blood specimen / Unknown Venipuncture / Unknown 06/09/2024 2:46 PM EDT 06/09/2024 2:46 PM EDT Margaret Bensoner PRISCILLA LAB BLOOD O RDERABLES Performing Organization Address City/State/[facility] Co de Phone Number LABORATORY [facility] [address] [place] [address] documented in this encounter Visit Diagnoses Diagnosis PHILOMENA (iron deficiency anemia) Iron deficiency anemia, unspecified documented in this encounter Care Teams Saddle Maker Relationship Specialty Start Date End Date Maldonado Latif CRNP [address] [address] [place] [address] PCP - General Nurse Practitioner 03/10/21 documented as of this encounter
--- OUTSIDE RECORDS SUMMARY | 2024-07-15 07:07 | External Medical Summary ---
Author Name Unknown Address Unknown Organization K01:LABORATORY [facility] [place] - [address] [place] [address] Laboratory Report Ordering Provider Test Date Status RACHEL LOVING 06/09/2024 14:46:56 Final Observation Date Value Abnormality Reference (Units ) Status Iron 06/09/2024 14:46:56 33 33-151 (ug/dL) Final Iron-binding capacity 06/09/2024 14:46:56 489 Above high normal 250-425 (ug/dL) Final Transferrin Sat % 06/09/2024 14:46:56 7 Below low normal 15-55 (%) Final Performing Location LABORATORY [facility] - [address] [place] [address]
--- OUTSIDE RECORDS SUMMARY | 2024-07-15 07:07 | External Medical Summary | Summary of Care ---
Author Name Unknown Organization [facility] Address [address] [place] [address] Phone [phone] Care Team Providers Care Junior Web Developer Name Role Phone Maldonado Latif Primary Care Provider Encounter Details Date Type Department Care Team (Late st Contact Info) Description 05/28/2024 Telephone [facility] Gynecology and Obstetrics [address] [place], [place] [phone] Kenia Fregoso, [facility] [address] [place], [place] [phone] Allergies No known active allergiesdocumented as of this encounter (statuses as of 06/05/2024) Medications Medication Sig Dispensed Refills Start Date End Date Status Pediatric Jooyippy-Kluwztkk-A (FLINTSTONES COMPLETE) CHEW Take 1 Tab by mouth 2 times a day. Active Levothyroxine Sodium 25 MCG Oral Tablet (Levo-T) Pt taking 125 mcg 07/12/2020 Active Vitamin D3 1.25 MG (90607 UT) Oral Capsule Take 1 Capsule by [...] as of this encounter (statuses as of 06/05/2024) Active Problems Problem Noted Date Diagnosed Date Antepartum anemia complicating 024 Overview: Referred for iron infusions at 28 wks with 11 completed weeks gestation 12/13 Supervision of high risk in [facility] 12/23/2023 Obesity in , antepartum [...] Was seen in the past by [facility] Endocrinology (last visit 07/2020) Thyroid [...] patient is s/p laprascopic gastric bypass at [facility] on May 19, 2009. Last seen [...] -Vitamin D 800 IU daily -Calcium citrate 3742-5526 mg daily (better absorbed than calcium carbonate) [...] as of this encounter (statuses as of 06/05/2024) Resolved Problems Problem Noted Date Diagnosed Date [...] as of this encounter (statuses as of 06/05/2024) Immunizations Name Administration Dates Next Due HPV [...] money to get more. Never true 02/06/2024 [place] Depression Scale Answer Date Recorded [place] Depression Scale Total 0 05/27/2024 The thought [...] EDT Covering for Kiah. Dr. Murray from [facility] recommended repeating blood sugar testing due to [...] EDT Office Visit Gynecology/Obstetrics Cristino Mckeon [address] [place] [address] Kiah Morley, JAKY, AUGIEM [address] [place] [address] [place] [address] Ally Mckeon Stress Tests [place] [address] [place] [address] 06/24/2024 2:30 PM EDT Office Visit Shade Classifier Obstetrics Maternal Medicine, [place] [address] [place] [address] Eleazar Iverson MD [address] [place] [address] 06/24/2024 2:30 PM EDT Imaging Radiology [facility] [place], [place] [address] [place] [address] Scheduled Orders Name Type Priority Associated Diagnoses [...] Primary documented in this encounter Care Teams Junior Web Developer Relationship Specialty Start Date End Date Maldonado Latif CRNP [address] [address] PCP - General Nurse Practitioner 03/10/21 documented as of this encounter
--- OUTSIDE RECORDS SUMMARY | 2024-07-15 07:07 | External Medical Summary ---
Author Name Unknown Address Unknown Organization K01:LABORATORY [facility] [place] [address] [place] [address] [place] [address] Laboratory Report Ordering Provider Test Date Status INDERRACHEL 06/09/2024 14:46:56 Final Observation Date Value Abnormality Reference (Units ) Status Ferritin 06/09/2024 14:46:56 8 Below low normal 13- 150 (ng/mL) Final Performing Location LAB[facility]ATORY [facility] - [address] [facility] [address]
--- OUTSIDE RECORDS SUMMARY | 2024-07-15 07:07 | External Medical Summary | Summary of Care ---
Author Name Unknown Organization [facility] Address [address] [place] [address] Phone [phone] Care Team Providers Care Property Controller Name Role Phone Maldonado Latif Primary Care Provider Encounter Details Date Type Department Care Team (Late st Contact Info) Description 05/28/[address] [facility] Gynecology and Obstetrics [address] [place], [place] [phone] Kenia Fregoso, [facility] [address] [place], [place] [phone] Allergies No known active allergiesdocumented as of this encounter (statuses as of 06/05/2024) Medications Medication Sig Dispensed Refills Start Date End Date Status Pediatric Vnekgyrb-Urlkfgiq-Q (FLINTSTONES COMPLETE) CHEW Take 1 Tab by mouth 2 times a day. Active Levothyroxine Sodium 25 MCG Oral Tablet (Levo-T) Pt taking 125 mcg 07/12/2020 Active Vitamin D3 1.25 MG (78929 UT) Oral Capsule Take 1 Capsule by [...] 12/13 Supervision of high risk in [facility] 12/23/2023 Obesity in , antepartum [...] baby Was seen in the past by [facility] Endocrinology (last visit 07/2020) Thyroid ultrasound [...] patient is s/p laprascopic gastric bypass at [facility] on May 19, 2009. Last seen by [...] -Vitamin D 800 IU daily -Calcium citrate 5945-6705 mg daily (better absorbed than calcium carbonate) [...] money to get more. Never true 02/06/2024 [place] Depression Scale Answer Date Recorded [place] Depression Scale Total 0 05/27/2024 The thought [...] EDT Covering for Kiah. Dr. Murray from [facility] recommended repeating blood sugar testing due [...] Gynecology/Obstetrics Cristino Mckeon [address] [place] [address] Kiah Morley, JAKY, AUGIEM [address] [place] [address] [place] [address] Ally Mckeon Stress Tests [place] [address] [place] [address] 06/24/2024 2:30 PM EDT Office Visit Laborer Obstetrics Maternal Medicine, [place] [address] [place] [address] Eleazar Iverson MD [address] [place] [address] 06/24/2024 2:30 PM EDT Imaging Radiology [facility] [place], [place] [address] [place] [address] Scheduled Orders Name Type Priority Associated Diagnoses [...] Primary documented in this encounter Care Teams Property Controller Relationship Specialty Start Date End Date Maldonado Latif CRNP [address] [address] PCP - General Nurse Practitioner 03/10/21 documented as of this encounter
--- OUTSIDE RECORDS SUMMARY | 2024-07-15 07:07 | External Medical Summary | Summary of Care ---
Author Name Unknown Organization [facility] Address [address] [place] [address] Phone [phone] Care Team Providers Care Analytics Leader Name Role Phone Maldonado Latif Primary Care Provider Encounter Details Date Type Department Care Team (Late st Contact Info) Description 05/28/[address] [facility] Gynecology and Obstetrics [address] [place], [place] [phone] Kenia Fregoso, [facility] [address] [place], [place] [phone] Allergies No known active allergiesdocumented as of this encounter (statuses as of 06/04/2024) Medications Medication Sig Dispensed Refills Start Date End Date Status Pediatric Txakxpox-Uhaufaqg-H (FLINTSTONES COMPLETE) CHEW Take 1 Tab by mouth 2 times a day. Active Levothyroxine Sodium 25 MCG Oral Tablet (Levo-T) Pt taking 125 mcg 07/12/2020 Active Vitamin D3 1.25 MG (16730 UT) Oral Capsule Take 1 Capsule by [...] baby Was seen in the past by [facility] Endocrinology (last visit 07/2020) Thyroid [...] patient is s/p laprascopic gastric bypass at [facility] on May 19, 2009. Last seen by [...] -Vitamin D 800 IU daily -Calcium citrate 7432-2043 mg daily (better absorbed than calcium carbonate) [...] money to get more. Never true 02/06/2024 [place] Depression Scale Answer Date Recorded [place] Depression Scale Total 0 05/27/2024 The thought [...] encounter Miscellaneous Notes * Telephone Encounter - Rebekah Huggins RN [...] EDT Attempted to call patient. No answer, KATIM to return call. * Telephone Encounter - Jackie Flor RN - 05/29/2024 8:31 AM EDT T/C to pt. No answer. VM left for pt to return call to office. * Telephone Encounter - Kenia Fregoso CNM - 05/28/2024 5:17 PM EDT Covering for Kiah. Dr. Murray from [facility] recommended repeating blood sugar testing due to [...] EDT Office Visit Gynecology/Obstetrics Cristino Mckeon [address] [facility] [place] [address] Kiah Morley, JAKY, CNM [address] [place] [address] Ally Mckeon Stress Tests [place] [address] [facility] [place] [address] 06/24/2024 2:30 PM EDT Office Visit Media Supervisor Obstetrics Maternal Medicine, [address] [address] Eleazar Iverson MD [address] [place] [address] 06/24/2024 2:30 PM EDT Imaging Radiology [facility], [place] [address] [place] [address] Scheduled Orders Name Type Priority Associated Diagnoses [...] Primary documented in this encounter Care Teams Analytics Leader Relationship Specialty Start Date End Date Maldonado Latif CRNP [address] [facility] 2 [place] [address] PCP - General Nurse Practitioner 03/10/21 documented as of this encounter
--- OUTSIDE RECORDS SUMMARY | 2024-07-15 07:07 | External Medical Summary | Summary of Care ---
Author Name Unknown Organization [facility] Address [address] [place] [address] Phone [phone] Care Team Providers Care House Designer Name Role Phone Maldonado Latif Primary Care Provider Reason for Visit * Reason Comments Return Visit Non Stress Test Encounter Details Date Type Department Care Team (Late st Contact Info) Description 06/10/2024 10:30 AM EDT Office Visit Gynecology/Obstetric s [facility] [address] [place] [address] Kiah Morley, JAKY, CNM [address] [place], [place] [phone] Mike Non Stress Tests [facility] [address] [place] [address] Supervision of high risk in first trimester*; Obesity in , antepartum; Hypothyroidism affecting , antepartum; Previous gastric bypass affecting , antepartum; Previous delivery, antepartum condition or complication; Antepartum anemia complicating Allergies No known active allergiesdocumented as of this encounter (statuses as of 06/10/2024) Medications Medication Sig Dispensed Refills Start Date End Date Status Pediatric Auxxurdu-Azpxapey-J (FLINTSTONES COMPLETE) CHEW Take 1 Tab by mouth 2 times a day. Active Levothyroxine Sodium 25 MCG Oral Tablet (Levo-T) Pt taking 125 mcg 07/12/2020 Active Vitamin D3 1.25 MG (47689 UT) Oral Capsule Take 1 Capsule by [...] lunch, and dinner) 1 Kit 03/18/2024 Active AAVLifeTouch Verio In Vitro Strip (Glucose Blood)Indications:Sup ervision of high risk in second trimester,Previous gastric bypass affecting , antepartum Use to test blood sugars 4 times daily (fasting, 1 hour after breakfast, lunch, and dinner) 125 Strip 6 03/18/2024 Active AAVLifeTouch Delica Lancets 30GIndications:Superv ision of high risk [...] baby Was seen in the past by [facility] Endocrinology (last visit 07/2020) Thyroid ultrasound [...] patient is s/p laprascopic gastric bypass at [facility] on May 19, 2009. Last [...] -Vitamin D 800 IU daily -Calcium citrate 0494-9366 mg daily (better absorbed than calcium carbonate) [...] money to get more. Never true 02/06/2024 [place] Depression Scale Answer Date Recorded [place] Depression Scale Total 0 05/27/2024 The thought [...] No 02/06/2024 Does the household have a [facility]? (Household - for ages [...] Sign Reading Time Taken Comments Blood Pressure 126/84 06/10/2024 10:40 AM EDT Pulse - - Temperature - - Respiratory Rate - - Oxygen Saturation - - Inhaled Oxygen Concentration - - Weight 125.6 kg (277 lb) 06/10/2024 10:40 AM EDT Height - - Body Mass Index 50.66 01/20/2024 1:34 PM EDT documented in this encounter Progress Notes * Kiah Morley DNP, CNM - 06/10/2024 11:11 AM EDT Blanca Simms is a 34 year old female here for her routine OB appointment at 34w3d Her Estimated Date of Delivery: 07/19/24 REVIEW OF SYSTEMS: She affirms movement. Denies vaginal bleeding, LOF, contractions, N/V, headaches. States she messaged Fausto with Blood management who is going to schedule her Venofer infusions. Is planning on doing Repeat C/S and likely BTL. PHYSICAL EXAM: Filed Vitals: 06/10/24 1040 BP: 126/84 Weight: 125.6 kg (277 lb) ASSESSMENT assessment with Non-stress Test completed on 06/10/2024 at 34w3d weeks gestation for indication of obesity heart baseline: 135 bpm Variability: Moderate Decelerations: absent Accelerations: present Contractions: None NST start time: 1040 NST stop time: 1110 NST strip reviewed, interpreted, and approved by OB provider, Kiah Morley DNP, CNM. NST strip stored in clinic storage file ASSESSMENT/PLAN: (O09.91) Supervision of high risk in first trimester (primary encounter diagnosis) (O99.210) Obesity in , antepartum Plan: Class 3 weekly NSTs US with MFM On 06/24 (O99.280, E03.9) Hypothyroidism affecting Plan: TSH Results: Lab Results Component Value Date/Time TSH - [facility] 1.29 04/29/2024 08:24 AM TSH - [facility] 1.32 01/20/2024 02:47 PM (O34.219) Previous delivery, antepartum condition or complication Plan: Leaning toward repeat C/S and BTL at this time, will schedule next appt with (O99.019) Antepartum anemia complicating Plan: Yesterday CBC 9.9 States Fausto Briggs With blood management will be scheduling her for Venofer infusions. - GBS at next visit - labor precautions and kick counts reviewed - RTO in 1 weeks Kiah Morley DNP, CNM * Rachell Salmon MED ASSIST - 06/10/2024 10:40 AM EDT 34w3d Denies vaginal bleeding/rom + movements No concerns Labor instructions given documented in this encounter Plan of Treatment Upcoming Encounters Date Type Department Care Team (Late st Contact Info) Description 06/10/2024 4:00 PM EDT Pharmacy Pharmacy, [address] [phone] Clinic, [address] [address] 06/24/2024 2:30 PM EDT Office Visit Dockworker Obstetrics Maternal Medicine, [address] [address] Eleazar Iverson MD [facility] [address] [place], [place] [phone] 06/24/2024 2:30 PM EDT Imaging Radiology [facility] [place], [address] [phone] Health Maintenance Due Date Last Done Comments [...] Diagnoses Diagnosis Supervision of high risk in first trimester- Primary Unspecified high-risk Obesity in , antepartum Obesity complicating , childbirth, or the puerperium, antepartum condition or complication Hypothyroidism affecting , antepartum Previous gastric bypass affecting , antepartum Previous delivery, antepartum condition or complication Antepartum anemia complicating Anemia, antepartum documented in this encounter Care Teams House Designer Relationship Specialty Start Date End Date Maldonado Latif CRNP [address] [address] PCP - General Nurse Practitioner 03/10/21 documented as of this encounter
--- OUTSIDE RECORDS SUMMARY | 2024-07-15 07:07 | External Medical Summary | Summary of Care ---
Author Name Unknown Organization [facility] Address [address] [place] [address] Phone [phone] Care Team Providers Care Angle Dozer Operator Name Role Phone Maldonado Latif Primary Care Provider Reason for Visit * Reason Comments Blood Management Program Encounter Details Date Type Department Care Team (Late st Contact Info) Description 04/29/2024 Documentation Patient Blood Management, [place] [address] [place] [address] Fausto Peña RN Allergies No known active allergiesdocumented as of this encounter (statuses as of 06/04/2024) Medications Medication Sig Dispensed Refills Start Date End Date Status Pediatric Ozsuartl-Jxwkjgdt-T (FLINTSTONES COMPLETE) CHEW Take 1 Tab by mouth 2 times a day. Active Levothyroxine Sodium 25 MCG Oral Tablet (Levo-T) Pt taking 125 mcg 07/12/2020 Active Vitamin D3 1.25 MG (05510 UT) Oral Capsule Take 1 Capsule by [...] dinner) 125 Strip 6 03/18/2024 Active Lasha Rivera Lancets 30GIndications:Superv ision of high risk in [...] gestation 12/13 Supervision of high risk in [facility] 12/23/2023 Obesity in , antepartum [...] baby Was seen in the past by [facility] Endocrinology (last visit 07/2020) Thyroid ultrasound [...] s/p laprascopic gastric bypass at [facility] on May 19, 2009. Last seen [...] -Vitamin D 800 IU daily -Calcium citrate 5134-3400 mg daily (better absorbed than calcium carbonate) [...] money to get more. Never true 02/06/2024 [place] Depression Scale Answer Date Recorded [place] Depression Scale Total 0 12/23/2023 The thought [...] as of this encounter Progress Notes * Fausto Peña RN - 04/29/2024 12:39 PM EDT REFERRAL - Patient Blood Management Name: Blanca Simms REQUESTING SERVICE: [facility] REASON FOR REFERRAL: new evaluation outpatient, anemia in [place]: 07/19/24 Anemia Evaluation: Latest Reference Range & Units 04/29/24 08:24 HGB 12.0 - 15.3 g/dL 10.4 (L) HCT 36.0 - 45.2 % 32.5 (L) (L): Data is abnormally low Current Patient Medications: Medications that may impair hemostasis: none Medications that may impair iron absorption: none Patient Refused Blood Transfusion? (e.g. Adventist): no Possible Contributing Factors: iron deficiency Treatment Recommendations: IV iron per OB MTM guidelines. 04/29 -myG sent 04/30 - Patient returned myG, agreeable to IV iron at [facility]. Will submit OB MTM. Thank you for allowing Blood Management to participate in the care of this patient. documented in this encounter Plan of Treatment Upcoming Encounters Date Type Department Care Team (Late st Contact Info) Description 06/10/2024 10:30 AM EDT Office Visit Gynecology/Obstetrics [facility] [address] [place] [address] Kiah Morley, JAKY, CNM [address] [place] [address] Ally Mckeon Stress Tests [facility] [address] [facility] [place] [address] 06/24/2024 2:30 PM EDT Office Visit Produce Weigher Obstetrics Maternal Medicine, [place] [address] [place] [address] Eleazar Iverson MD [address] [place] [address] 06/24/2024 2:30 PM EDT Imaging Radiology [facility] [address] [place], [place] [phone] Health Maintenance Due Date Last Done Comments [...] filedocumented as of this encounter Care Teams Angle Dozer Operator Relationship Specialty Start Date End Date Maldonado Latif CRNP [address] [address] PCP - General Nurse Practitioner 03/10/21 documented as of this encounter
--- OUTSIDE RECORDS SUMMARY | 2024-07-15 07:08 | External Medical Summary | Summary of Care ---
Author Name Unknown Organization [facility] Address [address] [place] [address] Phone [phone] Care Team Providers Care Java Developer Name Role Phone Maldonado Latif Primary Care Provider Reason for Visit * Reason Comments Ultrasound Encounter Details Date Type Department Care Team (Latest Contact Info) Description 05/06/2024 2:30 PM EDT Office Visit Linotype Mechanic Obstetrics Maternal Medicine, [place] [address] [place], [place] [phone] Eleazar Iverson MD [address] [place], [place] [phone] Intestinal postoperative nonabsorption*; Obesity in , antepartum; Hypothyroidism affecting in third trimester; Previous gastric bypass affecting , antepartum Allergies No known active allergiesdocumented as of this encounter (statuses as of 05/06/2024) Medications Medication Sig Dispensed Refills Start Date End Date Status Pediatric Fbvzxyzh-Wxblzvph-Y (FLINTSTONES COMPLETE) CHEW Take 1 Tab by mouth 2 times a day. Active Levothyroxine Sodium 25 MCG Oral Tablet (Levo-T) Pt taking 125 mcg 07/12/2020 Active Vitamin D3 1.25 MG (27341 UT) Oral Capsule Take 1 Capsule by mouth once a week. 12/17/2023 Active Gummies 0.18-25 MG Oral Tablet Chewable Take by mouth. Activ e Signal DataTouch Surya Power Magicio Flex System w/Device KitIndications:Superv ision of high risk in second trimester,Previous gastric bypass affecting , antepartum Use to test blood sugars 4 times daily for 7 days, between 26-28 weeks. (fasting, 1 hour after breakfast, lunch, and dinner) 1 Kit 03/18/2024 Active Signal DataTouch Verio In Vitro Strip (Glucose Blood)Indications:Sup ervision [...] as of this encounter (statuses as of 05/06/2024) Active Problems Problem Noted Date Diagnosed Date Antepartum anemia complicating 024 Overview: Referred for iron infusions at 28 wks with 11 completed weeks gestation 12/13 Supervision of high risk in [facility] 12/23/2023 Obesity in , antepartum 12/23/2023 Overview: [...] baby Was seen in the past by [facility] Endocrinology (last visit 07/2020) Thyroid ultrasound reveal small thyroid nodule Managed with Levothyroxine 25 mcg daily Lab Results Component Value Date/Time TSH - [facility] 1.38 12/23/2023 10:21 AM TSH - [facility] <0.01 (L) 12/03/2018 03:50 PM Last Assessment & Plan: TSH Results: Lab Results Component Value Date/Time TSH - [facility] 1.32 01/20/2024 02:47 PM TSH - [facility] 1.38 12/23/2023 10:21 AM TSH - [facility] <0.01 (L) 12/03/2018 03:50 PM TSH - [facility] 1.49 05/18/2016 08:14 AM TSH - [facility] 0.56 12/15/2014 08:22 AM TSH - [facility] 2.300 09/08/2020 12:00 AM TSH - [facility] 1.590 03/26/2019 12:00 AM TSH - [facility] 3.600 02/23/2019 12:00 AM Thyroid under very good control on current dose of levothyroxine. Previous gastric bypass affecting , ant epartum 12/23/2023 Overview: The patient is s/p laprascopic gastric bypass at [facility] on May 19, 2009. Last [...] -Vitamin D 800 IU daily -Calcium citrate 9227-1689 mg daily (better absorbed than calcium carbonate) [...] as of this encounter (statuses as of 05/06/2024) Resolved Problems Problem Noted Date Diagnosed Date [...] as of this encounter (statuses as of 05/06/2024) Immunizations Name Administration Dates Next Due HPV [...] money to get more. Never true 02/06/2024 [place] Depression Scale Answer Date Recorded [place] Depression Scale Total 0 12/23/2023 The thought [...] Progress Notes * Eleazar Iverson MD - 05/06/2024 3:15 PM EDT MATERNAL MEDICINE VISIT Blanca Simms is at 29w3d who presents to [facility] for an ultrasound and follow-up of her high risk . The patient is currently 29 weeks and 3 days gestation with class 3 obesity, hypothyroidism and sheis status post gastric bypass surgery. She comes in for an evaluation of growth. She is being seen today by Maternal- Medicine for the following reasons: Problem List Items Addressed This Visit Intestinal postoperative nonabsorption - Primary Obesity in , antepartum I reviewed the ultrasound. The overall estimated weight is consistent with the 34th percentile for the gestational age and the amniotic fluid volume is normal at 20 cm. The anatomy that was visualized appears unremarkable. Hypothyroidism affecting Previous gastric bypass affecting , antepartum RECOMMENDATIONS: Recommend surveillance starting at 34 weeks secondary to class 3 obesity. Recommend follow up ultrasound with MFM in 4 weeks for growth secondary to class 3 obesity. Recommend delivery at 39 weeks gestation. Thank you for allowing us to participate in the care of this patient. Please call with any questions. Eleazra Iverson MD 05/06/2024 3:15 PM documented in this encounter Miscellaneous Notes * Assessment & Plan Note - Eleazar Iverson MD - 05/06/2024 3:27 PM EDT Associated Problem(s): Obesity in , antepartum I reviewed the ultrasound. The overall estimated weight is consistent with the 34th percentile for the gestational age and the amniotic fluid volume is normal at 20 cm. The anatomy that was visualized appears unremarkable. documented in this encounter Plan of Treatment Upcoming Encounters Date Type Department Care Team (Late st Contact Info) Description 05/13/2024 4:30 PM EDT Office Visit Gynecology/Obstetrics [facility] [address] [facility] [place] [address] Mendy Upton PA-C [address] [place] [address] 05/28/2024 2:30 PM EDT Imaging Maternal Medicine Imaging, [facility] [address] [place] [address] 06/24/2024 2:30 PM EDT Office Visit Linotype Mechanic Obstetrics Maternal Medicine, [place] [address] [place] [address] Eleazar Iverson MD [address] [place] [address] 06/24/2024 2:30 PM EDT Imaging Radiology [facility] [address] [place] [address] Health Maintenance Due Date Last Done Comments Hepatitis B (1 of 3 - 19+ 3-dose series) 2009 HPV/Co-Test 2020 Depression Screening 09/20/2021 09/20/2020 COVID-19 Vaccine ( season) 2023 Cervical Cancer Screening 09/22/2023 Pap Smear 09/22/2023 09/22/2020, 10/11, 10/18/2016, Additional history exists Influenza Vaccine (FLU shot) (Season Ended) 2024 09/11/2018, 07/23/2016, 08/25/2014, Additional history exists TSH 04/29/2025 04/29/2024, 01/09, 12/23/2023, Additional history exists DTaP,Tdap,and Td Vaccines (5 - Td or Tdap) 04/29/2034 04/29/2024, 04/10/2018, 01/04/2016, Additional history exists MENINGOCOCCAL (MENACTRA/MENVEO) Aged Out 06/11/2006 No longer eligible based on patient's age to complete this topic GARDASIL-HPV IMMUNIZATION SERIES Completed 04/11/2014, 01/09/2014, 07/15/2007, Additional history exists Pneumococcal Vaccine: Pediatrics (0 to 5 Years) and At-Risk Patients (6 to 64 Years) Aged Out No longer eligible based on patient's age to complete this topic documented as of this encounter Medical Devices Not on filedocumented as of this encounter Visit Diagnoses Diagnosis 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
--- OUTSIDE RECORDS SUMMARY | 2024-07-15 07:08 | External Medical Summary | Summary of Care ---
Author Name Unknown Organization [facility] Address [address] [place] [address] Phone [phone] Care Team Providers Care Tire Classifier Name Role Phone Maldonado Latif Primary Care Provider Reason for Visit * Reason Comments Return Visit Encounter Details Date Type Department Care Team (Late st Contact Info) Description 05/13/2024 4:30 PM EDT Office Visit Gynecology/Obstetric s [facility] [address] [place] [address] Mendy Upton PA-C [address] [place] [address] Supervision of high risk in first trimester*; Obesity in , antepartum; Hypothyroidism affecting in third trimester; Previous gastric bypass affecting , antepartum; Previous delivery, antepartum condition or complication; Antepartum anemia complicating Allergies No known active allergiesdocumented as of this encounter (statuses as of 05/13/2024) Medications Medication Sig Dispensed Refills Start Date End Date Status Pediatric Pkxsycaw-Yyezhsnk-X (FLINTSTONES COMPLETE) CHEW Take 1 Tab by mouth 2 times a day. Active Levothyroxine Sodium 25 MCG Oral Tablet (Levo-T) Pt taking 125 mcg 07/12/2020 Active Vitamin D3 1.25 MG (34354 UT) Oral Capsule Take 1 Capsule by [...] as of this encounter (statuses as of 05/13/2024) Active Problems Problem Noted Date Diagnosed Date Antepartum anemia complicating 024 Overview: Referred for iron infusions at 28 wks with 11 completed weeks gestation 12/13 Supervision of high risk in [facility] 12/23/2023 Obesity in , antepartum 12/23/2023 [...] baby Was seen in the past by [facility] Endocrinology (last visit 07/2020) Thyroid [...] -Vitamin D 800 IU daily -Calcium citrate 8461-9166 mg daily (better absorbed than calcium carbonate) [...] as of this encounter (statuses as of 05/13/2024) Resolved Problems Problem Noted Date Diagnosed Date Resolved Date Iron deficiency anemia hansdavid luz maria to inadequate dietary iron intake [...] as of this encounter (statuses as of 05/13/2024) Immunizations Name Administration Dates Next Due HPV [...] money to get more. Never true 02/06/2024 [place] Depression Scale Answer Date Recorded [place] Depression Scale Total 0 12/23/2023 The thought [...] No 02/06/2024 Does the household have a [facility] source of income? (Household - for ages [...] Sign Reading Time Taken Comments Blood Pressure 104/64 05/13/2024 4:32 PM EDT Pulse - - Temperature - - Respiratory Rate - - Oxygen Saturation - - Inhaled Oxygen Concentration - - Weight 125.2 kg (276 lb) 05/13/2024 4:32 PM EDT Height - - Body Mass Index 50.48 01/20/2024 1:34 PM EDT documented in this encounter Progress Notes * Mendy Upton PA-C - 05/13/2024 4:45 PM EDT 30w3d Growth with MFM 05/06 baby 34%ile, pt states baby head maternal upper left nearly breech. Still undecided about vs repeat C/S. Report would like tubal if C/S. Understands recommendation for 39 weeks delivery and need to decide in near future. Reviewed NST starting at 34 weeks Did complete finger sticks in place of gtt as advised. Thought she sent myG with results. Not able to find. Pt states will resend. Did not bring them today's appointment. Denies VB, LOF, contractions. Baby is active. RTC in 2 weeks Mendy Upton PA-C * Rachell Salmon MED ASSIST - 05/13/2024 4:32 PM EDT 30w3d Denies vaginal bleeding/rom + movements No new concerns documented in this encounter Plan of Treatment Upcoming Encounters Date Type Department Care Team (Late st Contact Info) Description 05/28/2024 2:30 PM EDT Imaging Maternal Medicine Imaging, [address] [place] [phone] 06/24/2024 2:30 PM EDT Office Visit Infection Control Specialist Obstetrics Maternal Medicine, [place] [address] [place] [address] Eleazar Iverson MD [address] [place] [address] 06/24/2024 2:30 PM EDT Imaging Radiology [facility] [address] [place], [place] [phone] Health Maintenance Due Date Last Done Comments [...] antepartum documented in this encounter Care Teams Tire Classifier Relationship Specialty Start Date End Date Maldonado Latif CRNP [address] [address] PCP - General Nurse Practitioner 03/10/21 documented as of this encounter
--- OUTSIDE RECORDS SUMMARY | 2024-07-15 07:08 | External Medical Summary | Summary of Care ---
Author Name Unknown Organization [facility] Address [address] [place] [address] Phone [phone] Care Team Providers Care Parking Analyst Name Role Phone Maldonado Latif Primary Care Provider Encounter Details Date Type Department Care Team (Late st Contact Info) Description 05/28/2024 Telephone [facility] Gynecology and Obstetrics [address] [place], [place] [phone] Kenia Fregoso, [facility] [address] [place], [place] [phone] Allergies No known active allergiesdocumented as of this encounter (statuses as of 06/04/2024) Medications Medication Sig Dispensed Refills Start Date End Date Status Pediatric Fclukswp-Halxucrm-L (FLINTSTONES COMPLETE) CHEW Take 1 Tab by mouth 2 times a day. Active Levothyroxine Sodium 25 MCG Oral Tablet (Levo-T) Pt taking 125 mcg 07/12/2020 Active Vitamin D3 1.25 MG (41019 UT) Oral Capsule Take 1 Capsule by [...] patient is s/p laprascopic gastric bypass at [facility] on May 19, 2009. Last seen [...] -Vitamin D 800 IU daily -Calcium citrate 5034-7493 mg daily (better absorbed than calcium carbonate) [...] money to get more. Never true 02/06/2024 [place] Depression Scale Answer Date Recorded [place] Depression Scale Total 0 05/27/2024 The thought [...] EDT Covering for Kiah. Dr. Murray from [facility] recommended repeating blood sugar testing due [...] 06/10/2024 10:30 AM EDT [facility] [address] [place] [address] Kiah Morley, JAKY, CNM [address] [place] [address] Ally Mckeon Stress Tests [facility] [address] [place] [address] 06/24/2024 2:30 PM EDT Office Visit Digital Proofing And Platemaker Obstetrics Maternal Medicine, [place] [address] [place] [address] Eleazar Iverson MD [address] [place], [place] [phone] 06/24/2024 2:30 PM EDT Imaging Radiology [facility] [address] [place], [place] [phone] Scheduled Orders Name Type Priority Associated Diagnoses [...] Primary documented in this encounter Care Teams Parking Analyst Relationship Specialty Start Date End Date Maldonado Latif CRNP [address] [address] PCP - General Nurse Practitioner 03/10/21 documented as of this encounter
--- OUTSIDE RECORDS SUMMARY | 2024-07-15 07:08 | External Medical Summary | Summary of Care ---
Author Name Unknown Organization [facility] Address [address] [place] [address] Phone [phone] Care Team Providers Care Intake Specialist Name Role Phone Maldonado Latif Primary Care Provider Encounter Details Date Type Department Care Team (Late st Contact Info) Description 05/28/2024 2:30 PM EDT Office Visit Sample Patternmaker Obstetrics Maternal Medicine, [address] [place] [address] Dionna Murray, DO [address] [place], [place] [phone] Previous gastric bypass affecting , antepartum*; Obesity in , antepartum; Hypothyroidism affecting in third trimester; 32 weeks gestation of ; Ultrasound for screening for growth restriction Allergies No known active allergiesdocumented as of this encounter (statuses as of 05/29/2024) Medications Medication Sig Dispensed Refills Start Date End Date Status Pediatric Ukzdexiz-Nmtrxedt-U (FLINTSTONES COMPLETE) CHEW Take 1 Tab by mouth 2 times a day. Active Levothyroxine Sodium 25 MCG Oral Tablet (Levo-T) Pt taking 125 mcg 07/12/2020 Active Vitamin D3 1.25 MG (05330 UT) Oral Capsule Take 1 Capsule by mouth once a week. 12/17/2023 Active Gummies 0.18-25 MG Oral Tablet Chewable Take by mouth. Activ e Mirapoint SoftwareToMobiiio Flex System w/Device KitIndications:Superv ision of high [...] as of this encounter (statuses as of 05/29/2024) Active Problems Problem Noted Date Diagnosed Date [...] patient is s/p laprascopic gastric bypass at [facility] on May 19, 2009. Last seen by [...] -Vitamin D 800 IU daily -Calcium citrate 7629-7147 mg daily (better absorbed than calcium carbonate) [...] as of this encounter (statuses as of 05/29/2024) Resolved Problems Problem Noted Date Diagnosed Date [...] as of this encounter (statuses as of 05/29/2024) Immunizations Name Administration Dates Next Due HPV [...] money to get more. Never true 02/06/2024 [place] Depression Scale Answer Date Recorded [place] Depression Scale Total 0 05/27/2024 The thought [...] No 02/06/2024 Does the household have a [employer] [place] source of income? (Household - for ages [...] as of this encounter Progress Notes * Dionna Murray, DO - 05/28/2024 4:36 PM EDT Blanca presented today at 32w4d for an ultrasound for the following indications: Previous gastric bypass affecting , antepartum Obesity in , antepartum Hypothyroidism affecting in third trimester Assessment & Plan: ,TSH Results: Lab Results [...] - OUTSIDE LAB 3.600 02/23/2019 12:00 AM 32 weeks gestation of Ultrasound for screening for growth restriction Ultrasound summary: Patient presented at 32w 4d for growth assessment. Normal growth with EFW 2086 g at 52%ile. Very mild increased ADRIENNE at 24.5 cm. Transverse presentation. I reviewed the ultrasound images. Blanca was given the opportunity to meet with me if she had any questions. Please refer to the ultrasound report for additional details about today's ultrasound examination. RECOMMENDATIONS: Recommend follow up ultrasound with MFM in 4 weeks for growth secondary to above indications. Consider repeat FSBS checks if > 3 weeks ago due to 0.5 cm extra amniotic fluid noted today. See prior formal MFM consultation note. Thank you for allowing us to participate in the care of this patient. Please call with any questions. Dionna Murray DO 05/28/2024 4:36 PM documented in this encounter Miscellaneous Notes * Assessment & Plan Note - Dionna Murray DO - 05/28/2024 4:36 PM EDT Associated Problem(s): Hypothyroidism affecting ,TSH Results: Lab Results Component Value Date/Time [...] - OUTSIDE LAB 3.600 02/23/2019 12:00 AM documented in this encounter Plan of Treatment Upcoming Encounters Date Type Department Care Team (Late st Contact Info) Description 06/10/2024 10:30 AM EDT Office Visit Gynecology/Obstetrics Cristino Mckeon [address] [place] [address] Kiah Morley, DNP, CNM [address] [facility] [place] [address] Ally Mckeon Stress Tests Roland [address] [facility] [place] [address] 06/24/2024 2:30 PM EDT Office Visit Sample Patternmaker Obstetrics Maternal Medicine, [place] [address] [place] [address] Eleazar Iverson MD [address] [place] [address] 06/24/2024 2:30 PM EDT Imaging Radiology [facility] [address], [place] [phone] Health Maintenance Due Date Last Done Comments [...] as of this encounter Visit Diagnoses Diagnosis Previous gastric bypass affecting , antepartum- Primary Obesity in , antepartum Obesity complicating , childbirth, or the puerperium, antepartum condition or complication Hypothyroidism affecting in third trimester 32 weeks gestation of state, incidental Ultrasound for screening for growth restriction screening for growth retardation using ultrasonics documented in this encounter Care Teams Intake Specialist Relationship Specialty Start Date End Date Maldonado Latif CRNP [address] [facility] 2 [place] [address] PCP - General Nurse Practitioner 03/10/21 documented as of this encounter
--- OUTSIDE RECORDS SUMMARY | 2024-07-15 07:08 | External Medical Summary | Summary of Care ---
Author Name Unknown Organization [facility] Address [address] [place] [address] Phone [phone] Care Team Providers Care Wire Strander Name Role Phone Maldonado Latif Primary Care Provider Encounter Details Date Type Department Care Team (Late st Contact Info) Description 05/28/2024 2:30 PM EDT Office Visit Instrument And Controls Technician Obstetrics Maternal Medicine, [address] [place] [address] Dionna Murray, DO [address] [place], [place] [phone] Previous gastric bypass affecting , antepartum*; Obesity in , antepartum; Hypothyroidism affecting in third trimester; 32 weeks gestation of ; Ultrasound for screening for growth restriction Allergies No known active allergiesdocumented as of this encounter (statuses as of 05/28/2024) Medications Medication Sig Dispensed Refills Start Date End Date Status Pediatric Umgbbjke-Sadvpgok-R (FLINTSTONES COMPLETE) CHEW Take 1 Tab by mouth 2 times a day. Active Levothyroxine Sodium 25 MCG Oral Tablet (Levo-T) Pt taking 125 mcg 07/12/2020 Active Vitamin D3 1.25 MG (42034 UT) Oral Capsule Take 1 Capsule by mouth once a week. 12/17/2023 Active Gummies 0.18-25 MG Oral Tablet Chewable Take by mouth. Activ e Tembo StudioToEpiclistio Flex System w/Device KitIndications:Superv ision of high [...] as of this encounter (statuses as of 05/28/2024) Active Problems Problem Noted Date Diagnosed Date [...] baby Was seen in the past by [facility] (last visit 07/2020) Thyroid ultrasound reveal [...] bypass at [facility] on May 19, 2009. Last seen by [...] -Vitamin D 800 IU daily -Calcium citrate 2272-7470 mg daily (better absorbed than calcium carbonate) [...] as of this encounter (statuses as of 05/28/2024) Resolved Problems Problem Noted Date Diagnosed Date [...] as of this encounter (statuses as of 05/28/2024) Immunizations Name Administration Dates Next Due HPV [...] money to get more. Never true 02/06/2024 [place] Depression Scale Answer Date Recorded [place] Depression Scale Total 0 05/27/2024 The thought [...] No 02/06/2024 Does the household have a up health systemr source of income? (Household - for ages [...] EDT Office Visit Gynecology/Obstetrics Cristino Mckeon [address] [facility] [place] [address] Kiah Morley, DNP, CNM [address] [facility] [place] [address] Ally Mckeon Stress Tests [place] 132 [facility] [place] [address] 06/24/2024 2:30 PM EDT Office Visit Instrument And Controls Technician Obstetrics Maternal Medicine, [place] [address] [place] [address] Eleazar Iverson MD [address] [place] [address] 06/24/2024 2:30 PM EDT Imaging Radiology [facility] [address] [place], [place] [phone] Health Maintenance Due Date Last Done Comments [...] ultrasonics documented in this encounter Care Teams Wire Strander Relationship Specialty Start Date End Date Maldonado Latif CRNP [address] [facility] 2 [place] [address] PCP - General Nurse Practitioner 03/10/21 documented as of this encounter
--- OUTSIDE RECORDS SUMMARY | 2024-07-15 07:08 | External Medical Summary | Summary of Care ---
Author Name Unknown Organization [facility] Address [address] [place] [address] Phone [phone] Care Team Providers Care Bench Assembler Electrical Name Role Phone Maldonado Latif Primary Care Provider Reason for Visit * Reason Comments Medical Nutrition Therapy Follow Up Encounter Details Date Type Department Care Team (Late st Contact Info) Description 05/05/2024 8:30 AM EDT Telemedicine [place], Arabella Mckeon [address] [facility] [place] [address] Madison Mason RDN [address] [place] [address] Obesity in , antepartum*; Supervision of high risk in first trimester; Previous gastric bypass affecting , antepartum; Previous delivery, antepartum condition or complication Allergies No known active allergiesdocumented as of this encounter (statuses as of 05/05/2024) Medications Medication Sig Dispensed Refills Start Date End Date Status Pediatric Nnkkkwny-Ouwnyguh-J (FLINTSTONES COMPLETE) CHEW Take 1 Tab by mouth 2 times a day. Active Levothyroxine Sodium 25 MCG Oral Tablet (Levo-T) Pt taking 125 mcg 07/12/2020 Active Vitamin D3 1.25 MG (56468 UT) Oral Capsule Take 1 Capsule by mouth once a week. 12/17/2023 Active Gummies 0.18-25 MG Oral Tablet Chewable Take by mouth. Activ e Med fusionio Flex System w/Device KitIndications:Superv ision of high [...] as of this encounter (statuses as of 05/05/2024) Active Problems Problem Noted Date Diagnosed Date [...] overall estimated weight is consistent with the 31st percentile for the gestational age and the anatomy that was visualized appears unremarkable. The amniotic fluid volume is normal at 19 cm and the fetus is in the transverse presentation. 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 Last seen [...] -Vitamin D 800 IU daily -Calcium citrate 5131-5987 mg daily (better absorbed than calcium carbonate) [...] as of this encounter (statuses as of 05/05/2024) Resolved Problems Problem Noted Date Diagnosed Date [...] as of this encounter (statuses as of 05/05/2024) Immunizations Name Administration Dates Next Due HPV [...] money to get more. Never true 02/06/2024 [place] Depression Scale Answer Date Recorded [place] Depression Scale Total 0 12/23/2023 The thought [...] No 02/06/2024 Does the household have a [facility] source of income? (Household - for ages [...] on file documented as of this encounter Patient Instructions * Patient Instructions* Madison Mason RDN - 05/05/2024 8:46 AM EDT Patient will continue with present meal regimen. Patient will continue with present activity regimen. documented in this encounter Progress Notes * Madison Mason RDN - 05/05/2024 8:31 AM EDT NUTRITION FOLLOW-UP NOTE - OUTPATIENT [facility] Name: Blanca Simms Location: [facility] Date: 05/05/2024 Time: 8:31 AM Patient was identified by name and date. Patient location: HOME. I was not in a hospital or clinic location. After connecting through [employer], patient was verified with two unique identifiers. Patient (or authorized legal truck sales representative) was then informed that this was a Telemedicine visit and being conducted confidentially over secure lines. Methods to assure confidentiality were taken. Patient acknowledged consent and understanding of privacy and security of the Telemedicine visit. The patient agreed to participate. Reason for Nutrition Follow-up: obesity in NUTRITION ASSESSMENT: Client History Patient is a 33 year old female being seen for above issue. She is in her 29th week of . Support System: Spouse Barriers to Learning: None Special Education Needs: None Physical Activity: walking for 1/2 hour after evening meal daily Food/Nutrition-Related History Describes typical diet history/24 hr recall Breakfast: scrambled egg with cheese, Activia light yogurt, fruit-banana or cantaloupe or honeydew,water Snacks: sometimes a granola bar or fruit or carrot sticks or mini cucumbers Lunch: salad with chicken, strawberries, walnuts, and vinaigrette dressing or with [place] meat or a human machine interface engineer's salad with vinaigrette dressing, water Snacks: none Dinner: chicken and vegetables or burgers and taco salad or fish, grilled vegetables, baked potato or rice, water Snacks: none Drinks: [id number]-[id number] ounces daily Restaurant meals: rare Diet Recall/Food Logs Indicate: AREAS FOR IMPROVEMENT: None POSITIVE: Portion control Low fat and/or low sugar selections Uses calorie free beverages Good meal distribution Adequate fruit and vegetable intake Adequate fluid intake Food and Nutrient Intake and other pertinent information: Patient reports including 3 servings of dairy daily-cottage cheese, yogurt, cheese. She has been including fruits and vegetables with her meals. States she has been reviewing nutrition labels as discussed at last nutrition visit (03/19/2024). States she has been checking her glucose levels for past 2 weeks-states she was unable to complete part 2 of OGTT due to low glucose levels. States post prandial glucose levels usually between 90-110.Also states her fasting glucose levels have been in target range. Medications Changes/Updates: addition of iron with likely iron infusions to be done soon Nutrition-Focused Physical Findings Deferred due to telemedicine visit Anthropometric Measurements Current Weight: Wt Readings from Last 1 Encounters: 04/29/24 124.6 kg (274 lb 9.6 oz) Wt Readings from Last 4 Encounters: 04/29/24 124.6 kg (274 lb 9.6 oz) 04/14/24 124.2 kg (273 lb 12.8 oz) 03/18/24 122.9 kg (271 lb) 02/19/24 122 kg (269 lb) Weight Change: increased by 3.5 pounds in the past 6 weeks. Patient notes her pre- weight was 263 lbs. BMI Readings from Last 1 Encounters: 04/29/24 50.22 kg/m Biochemical Data, Medical Tests, and Procedures Latest Reference Range & Units 04/29/24 08:24 WBC 4.00 - 10.80 K/uL 9.34 RBC 3.85 - 5.15 M/uL 3.65 HGB 12.0 - 15.3 g/dL 10.4 (L) HCT 36.0 - 45.2 % 32.5 (L) MCV 81.5 - 97.5 fL 89.0 MCH 27.0 - 34.0 pg 28.5 MCHC 32.0 - 36.0 g/dL 32.0 RDW 11.5 - 15.5 % 13.7 PLT 140 - 400 K/uL 245 MPV 6.6 - 11.1 fL 10.1 Iron 33 - 151 ug/dL 42 Iron Binding Capacity 250 - 425 ug/dL 480 (H) Transferrin Saturation Percent 15 - 55 % 9 (L) Ferritin 13 - 150 ng/mL 8 (L) Immature Reticuloctye Fraction 2.5 - 20.6 % 26.8 (H) Reticulocyte Hemoglobin 29.7 - 37.4 pg 27.3 (L) Absolute Reticulocyte 31.3 - 100.1 K/uL 67.3 Reticulocyte Percent 0.80 - 1.90 % 1.85 (L): Data is abnormally low !: Data is abnormal (H): Data is abnormally high Rpt: View report in Results Review for more information Above levels noted. Patient taking oral iron supplement. States she will likely be receiving iron infusions in the future. Previous Nutrition Diagnosis: Increased nutrient needs for protein, energy, and select micronutrients related to as evidenced by catabolic condition. Overweight/obesity related to presumed previous excessive energy intake compared to estimated needsas evidenced by BMI of 49.57 Progress towards goals: Patient will include at least 3 servings of dairy daily most days of the week. See handout for other foods that contain calcium. MET Patient will aim for at least 2 servings of fruits daily and at least 2-3 servings of vegetables daily. MET Patient will review nutrition labels for total fat and aim for 10% of daily value for fat for most food choices. MET CURRENT NUTRITION DIAGNOSIS Increased nutrient needs for protein, energy, and select micronutrients related to as evidenced by catabolic condition. Overweight/obesity related to presumed previous excessive energy intake compared to estimated needsas evidenced by BMI of 50.22 NUTRITION INTERVENTION: NUTRITION EDUCATION Initial/brief nutrition education NUTRITION COUNSELING Strategies Nutrition Prescription: Diet: Good Nutrition Daily Calorie Needs: [phone] Kcals Daily Protein Needs: 70-75 Grams protein Current Goals: Patient will continue with present meal regimen. Patient will continue with present activity regimen. Dietitian Action: Reviewed current meal regimen with pt. She is eating foods from all food groups, choosing lean meats, fruit and vegetables with meals. Encouraged her to continue with present meal regimen. Also, encouraged her to continue to do regular activities throughout the day. She verbalizesno concerns or issues. She denies GI distress or bowel issues. Recommendations to Ordering Provider: Continue current plan of nutrition care. NUTRITION MONITORING AND EVALUATION: The following will be monitored and evaluated at the next visit: None Plan: Patient declined F/U visit; Encouraged pt to contact me via My G if any questions or concernsarise. 15 minutes Medical Nutrition Therapy Time In: 08 (05/05/24 0830) Time Out: 0847 (05/05/24 1210) 15 min (8-22 min) 30 min (23-37 min) 45 min (38-52 min) 60 min (53-67 min) 75 min (68-82 min) 90 min (83-97 min) 105 min (98-113 min) Madison Mason RDN NUTRITION, [facility] documented in this encounter Plan of Treatment Upcoming Encounters Date Type Department Care Team (Late st Contact Info) Description 05/06/2024 2:30 PM EDT Office Visit Conference Specialist Obstetrics Maternal Medicine, [place] [address] [place] [address] Eleazar Iverson MD [address] [place] [address] 05/06/2024 2:30 PM EDT Imaging Radiology [facility], [place] [address] [place] [address] 05/13/2024 4:30 PM EDT Office Visit Gynecology/Obstetrics [facility] [address] [place] [address] Mendy Upton PA-C [address] [place] [address] 05/28/2024 2:30 PM EDT Imaging Maternal Medicine [facility], [facility] [address] [place] [phone] Health Maintenance Due Date Last Done Comments [...] as of this encounter Visit Diagnoses Diagnosis Obesity in , antepartum- Primary Obesity complicating , childbirth, or the puerperium, antepartum condition or complication Supervision of high risk in first trimester Unspecified high-risk Previous gastric bypass affecting , antepartum Previous delivery, antepartum condition or complication documented in this encounter Care Teams Bench Assembler Electrical Relationship Specialty Start Date End Date Maldonado Ltaif CRNP [address] [address] PCP - General Nurse Practitioner 03/10/21 documented as of this encounter
--- OUTSIDE RECORDS SUMMARY | 2024-07-15 07:08 | External Medical Summary | Summary of Care ---
Author Name Unknown Organization [facility] Address [address] [place] [address] Phone [phone] Care Team Providers Care Hvac Design Engineer Name Role Phone Maldonado Latif Primary Care Provider Reason for Visit * Reason Comments Return Visit Encounter Details Date Type Department Care Team (Late st Contact Info) Description 05/27/2024 2:00 PM EDT Office Visit Gynecology/Obstetric s Cristino Mckeon [address] [facility] [place] [address] Collette Cervantes CRNP [address] [facility] [place] [address] Supervision of high risk in third trimester*; Previous gastric bypass affecting , antepartum; Previous delivery, antepartum condition or complication; Obesity in , antepartum; Hypothyroidism affecting in third trimester; Antepartum anemia complicating Allergies No known active allergiesdocumented as of this encounter (statuses as of 05/27/2024) Medications Medication Sig Dispensed Refills Start Date End Date Status Pediatric Qregrxpn-Utseiwna-T (FLINTSTONES COMPLETE) CHEW Take 1 Tab by mouth 2 times a day. Active Levothyroxine Sodium 25 MCG Oral Tablet (Levo-T) Pt taking 125 mcg 07/12/2020 Active Vitamin D3 1.25 MG (27273 UT) Oral Capsule Take 1 Capsule by [...] as of this encounter (statuses as of 05/27/2024) Active Problems Problem Noted Date Diagnosed Date Antepartum anemia complicating 024 Overview: Referred for iron infusions at 28 wks with 11 completed weeks gestation 12/13 Supervision of high risk in [facility] 12/23/2023 Obesity in , antepartum [...] baby Was seen in the past by [facility] Endocrinology (last visit 07/2020) Thyroid ultrasound reveal [...] patient is s/p laprascopic gastric bypass at [facility] on May 19, 2009. Last [...] -Vitamin D 800 IU daily -Calcium citrate 8247-4597 mg daily (better absorbed than calcium carbonate) [...] as of this encounter (statuses as of 05/27/2024) Resolved Problems Problem Noted Date Diagnosed Date [...] as of this encounter (statuses as of 05/27/2024) Immunizations Name Administration Dates Next Due HPV [...] money to get more. Never true 02/06/2024 [place] Depression Scale Answer Date Recorded [place] Depression Scale Total 0 12/23/2023 The thought [...] No 02/06/2024 Does the household have a [facility] source of income? (Household - for ages [...] Sign Reading Time Taken Comments Blood Pressure 110/70 05/27/2024 2:12 PM EDT Pulse - - Temperature - - Respiratory Rate - - Oxygen Saturation - - Inhaled Oxygen Concentration - - Weight 125.2 kg (276 lb) 05/27/2024 2:12 PM EDT Height - - Body Mass Index 50.48 01/20/2024 1:34 PM EDT documented in this encounter Progress Notes * Collette Cervantes CRNP - 05/27/2024 2:36 PM EDT 32w3d No concerns. Baby is active. No contractions, bleeding, LOF. Brought blood sugars from a few weeks ago in for review- WNL. MFM tomorrow, weekly NSTs to begin at 34w. Baby has been breech/transverse. Desires c/s with BTL if baby stays in this position. PRISCILLA Luo documented in this encounter Plan of Treatment Upcoming Encounters Date Type Department Care Team (Late st Contact Info) Description 05/28/2024 2:30 PM EDT Imaging Maternal Medicine Imaging, [place] [phone] 05/28/2024 2:30 PM EDT Office Visit Airline Operations Agent Obstetrics Maternal Medicine, [place] [address] Dionna Murray DO [address] [place] [address] 06/10/2024 10:30 AM EDT Office Visit Gynecology/Obstetrics Cristino Mckeon [address] [place] [address] Kiah Morley, [facility], CN [address] [place] [address] Ally Mckeon Stress Tests [place] [address] 06/24/2024 2:30 PM EDT Office Visit Airline Operations Agent Obstetrics Maternal Medicine, [place] [address] [place] [address] Eleazar Iverson MD [address] [place] [address] 06/24/2024 2:30 PM EDT Imaging Radiology [facility], [place] [address] [place] [address] Health Maintenance Due Date Last Done Comments [...] risk in third trimester- Primary Unspecified high-risk Previous gastric bypass affecting , antepartum Previous delivery, antepartum condition or complication Obesity in , antepartum Obesity complicating , childbirth, or the puerperium, antepartum condition or complication Hypothyroidism affecting in third trimester Antepartum anemia complicating Anemia, antepartum documented in this encounter Care Teams Hvac Design Engineer Relationship Specialty Start Date End Date Maldonado Latif CRNP [address] [facility] 2 [place] [address] PCP - General Nurse Practitioner 03/10/21 documented as of this encounter
--- OUTSIDE RECORDS SUMMARY | 2024-07-15 07:09 | External Medical Summary ---
Author Name Unknown Address Unknown Organization K01:[place] [place] [address] [place] [id number] Laboratory Report Ordering Provider Test Date Status INDERBACKER 04/29/2024 08:24:47 Final Observation Date Value Abnormality Reference (Units ) Status WBC, Total 04/29/2024 08:24:47 9.34 4.00-10.8 0 (K/uL) Final RBC 04/29/2024 08:24:47 3.65 3.85-5.15 (M/uL) Final Hemoglobin 04/29/2024 08:24:47 10.4 Below low normal 12 .0-15.3 (g/dL) Final Anemia reflex testing trigge rs on a HGB < 12.0 for Females and HGB < 13.0 for Males in accordance with the WHO Anemia Guidelines
Anemia reflex testing triggers on a HGB < 12.0 for Females and HGB < 13.0 for Males in accordance with the WHO Anemia Guidelines HCT 04/29/2024 08:24:47 32.5 Below low normal 36. 0-45.2 (%) Final MCV 04/29/2024 08:24:47 89.0 81.5-97.5 (fL) Final MCH 04/29/2024 08:24:47 28.5 27.0-34.0 (pg) Final MCHC 04/29/2024 08:24:47 32.0 32.0-36.0 (g/dL) Final RDW 04/29/2024 08:24:47 13.7 11.5-15.5 (%) Final Platelets 04/29/2024 08:24:47 245 140-400 (K /uL) Final MPV 04/29/2024 08:24:47 10.1 6.6-11.1 ( fL) Final Nucleated erythrocytes/100 leukocytes [Ratio] in Blood by Automated count 04/29/2024 08:24:47 0 <=0 (/100 WBCs) Final Performing Location [facility] [place] [address] [facility] [address]
--- OUTSIDE RECORDS SUMMARY | 2024-07-15 07:09 | External Medical Summary ---
Author Name Unknown Address Unknown Organization K01:[facility]ORY [facility] [place] - [address] [facility] [address] Laboratory Report Ordering Provider Test Date Status RACHEL LOVING 04/29/2024 08:24:47 Final Observation Date Value Abnormality Reference (Units ) Status TSH 04/29/2024 08:24:47 1.29 0.27-4.20 (uIU/mL) Final Performing Location LABORATORY C - [address] [facility] [address]
--- OUTSIDE RECORDS SUMMARY | 2024-07-15 07:09 | External Medical Summary ---
Author Name Unknown Address Unknown Organization K01:[place] [place] [facility] [address] Laboratory Report Ordering Provider Test Date Status LUDIVINA LOVINGER 04/29/2024 08:24:47 Final Observation Date Value Abnormality Reference (Units ) Status Retic, % (auto) 04/29/2024 08:24:47 1.85 0.80-1.90 (%) Final Reticulocytes, Absolute 04/29/2024 08:24:47 67.3 31.3-100.1 (K/uL) Final Reticulocyte fraction, immature 04/29/2024 08:24:47 26.8 Above high normal 2.5-20.6 (%) Final Reticulocyte HGB 04/29/2024 08:24:47 27.3 Below low normal 29.7-37.4 (pg) Final Performing Location [facility] [facility] [place] [address] [facility] [address]
--- OUTSIDE RECORDS SUMMARY | 2024-07-15 07:09 | External Medical Summary ---
Author Name Unknown Address Unknown Organization K01:LABORATORY [facility] [place] - Formerly named [facility] [address] [place] [address] Laboratory Report Ordering Provider Test Date Status RACHEL LOVING 04/29/2024 08:24:47 Final Observation Date Value Abnormality Reference (Units ) Status Creatinine 04/29/2024 08:24:47 0.6 0.5-1.0 (mg/dL) Final Glomerular filtration rate/1.73 sq M.predicted [Volume Rate/Area] in Serum, Plasma or Blood by Creatinine-based formula (CKD-EPI) 04/29/2024 08:24:47 >90 >=60 (mL/min) Final eGFR is calculated based on the CKD-EPI 2020 equation Performing Location LABORATORY [facility] [place] - Formerly named [facility] [address] [place] [address]
--- OUTSIDE RECORDS SUMMARY | 2024-07-15 07:09 | External Medical Summary ---
Author Name Unknown Address Unknown Organization K01:[place] [place] [address] [place] [address] Laboratory Report Ordering Provider Test Date Status RACHEL LOVING 04/29/2024 08:24:47 Final Observation Date Value Abnormality Reference (Units ) Status Iron 04/29/2024 08:24:47 42 33-151 (ug/dL) Final Iron-binding capacity 04/29/2024 08:24:47 480 Above high normal 250-425 (ug/dL) Final Transferrin Sat % 04/29/2024 08:24:47 9 Below low normal 15-55 (%) Final Performing Location [facility] [place] [address] [place] [address]
--- OUTSIDE RECORDS SUMMARY | 2024-07-15 07:09 | External Medical Summary ---
Author Name Unknown Address Unknown Organization K01:LABORATORY [facility] - [address] [facility] [address] Laboratory Report Ordering Provider Test Date Status INDERBACKER 04/29/2024 08:24:47 Final Observation Date Value Abnormality Reference (Units ) Status SYNC LEUKOCYTES IN BLOOD BY AUTOMATED COUNT 04/29/2024 08:24:47 9.34 4.00-10.80 (K/uL) Final Segs 04/29/2024 08:24:47 72.1 40.0-75.0 (%) Final Lymphs % 04/29/2024 08:24:47 19.2 18.0-42.0 (%) Final Monos 04/29/2024 08:24:47 6.1 1.0-11.0 (%) Final Eosinophils 04/29/2024 08:24:47 2.1 0.0-6.0 (%) Final Basos 04/29/2024 08:24:47 0.2 0.0-2.0 (%) Final Immature Granulocyte, Percent 04/29/2024 08:24:47 0.3 0.0-2.0 (%) Final Absolute Segs 04/29/2024 08:24:47 6.73 1.80-7.70 (K/uL) Final Lymphs, absolute 04/29/2024 08:24:47 1.79 1.00-4.80 (K/ul) Final Monos, Abs 04/29/2024 08:24:47 0.57 0.00-1.10 (K/uL) Final Eos, Abs 04/29/2024 08:24:47 0.20 0.00-0.70 (K/uL) Final Basos, Abs 04/29/2024 08:24:47 0.02 0.00-0.20 (K/uL) Final Immature Granulocytes, Number 04/29/2024 08:24:47 0.03 0.00-0.20 (K/uL) Final Performing Location LABORATORY [facility] [place] - [address] [facility] [address]
--- OUTSIDE RECORDS SUMMARY | 2024-07-15 07:09 | External Medical Summary ---
Author Name Unknown Address Unknown Organization K01:[facility]ORY [facility] [place] - [address] [facility] [address] Laboratory Report Ordering Provider Test Date Status RACHEL LOVING 04/29/2024 08:24:47 Final Observation Date Value Abnormality Reference (Units ) Status Treponema pallidum Ab [Presence] in Serum by Immunoassay 04/29/2024 08:24:47 Nonreactive Nonreactive Final No serologic evidence of syp hilis. No additional testing clinicially indicated at this time. Consider repeat testing in 2-4 weeks if acute or primary syphilis is suspected. Performing Location LAB[facility]ATORY [facility] [place] - [address] [facility] [address]
--- OUTSIDE RECORDS SUMMARY | 2024-07-15 07:09 | External Medical Summary | Summary of Care ---
Author Name Unknown Organization [facility] Address [address] [place] [address] Phone [phone] Care Team Providers Care Architectural Design Professor Name Role Phone Maldonado Latif Primary Care Provider Encounter Details Date Type Department Care Team (Late st Contact Info) Description 05/04/2024 Orders Only Outcomes Research Department [address] [place], [place] [id number] Eliana Minor CHRA [facility] Research Other*[id number] Allergies No known active allergiesdocumented as of this encounter (statuses as of 05/04/2024) Medications Medication Sig Dispensed Refills Start Date End Date Status Pediatric Wctetjlw-Uygffczv-A (FLINTSTONES COMPLETE) CHEW Take 1 Tab by mouth 2 times a day. Active Levothyroxine Sodium 25 MCG Oral Tablet (Levo-T) Pt taking 125 mcg 07/12/2020 Active Vitamin D3 1.25 MG (59853 UT) Oral Capsule Take 1 Capsule by [...] and dinner) 125 Strip 6 03/18/2024 Active OneTofredy Rivera Lancets 30GIndications:Superv ision of high risk in second trimester,Previous gastric bypass affecting , antepartum Use to test blood sugars 4 times daily (fasting, 1 hour after breakfast, lunch, and dinner) 200 Each 6 03/18/2024 Active documented as of this encounter (statuses as of 05/04/2024) Active Problems Problem Noted Date Diagnosed Date [...] -Vitamin D 800 IU daily -Calcium citrate 4032-3820 mg daily (better absorbed than calcium carbonate) [...] as of this encounter (statuses as of 05/04/2024) Resolved Problems Problem Noted Date Diagnosed Date [...] as of this encounter (statuses as of 05/04/2024) Immunizations Name Administration Dates Next Due HPV [...] money to get more. Never true 02/06/2024 [place] Depression Scale Answer Date Recorded [place] Depression Scale Total 0 12/23/2023 The thought [...] Info) Description 05/05/2024 8:30 AM EDT Telemedicine [facility] [address] [place] [address] Madison Mason RDN [address] [place] [address] 05/06/2024 2:30 PM EDT Office Visit Communication Specialist Obstetrics Maternal Medicine, [place] [address] [place] [address] Eleazar Iverson MD [address] [facility] [place] [address] 05/06/2024 2:30 PM EDT Imaging [facility]iology [facility] [place] [address] [facility] [place] [address] 05/13/2024 4:30 PM EDT Office Visit Gynecology/Obstetrics Cristino Mckeon [address] [place] [address] Mendy Upton PA-C [address] [place] [address] 05/28/2024 2:30 PM EDT Imaging Maternal Medicine Imaging, Roland Mckeon [address] [place] [phone] Scheduled Orders Name Type Priority Associated Diagnoses Orde r Schedule MYCODE SUBSEQUENT ADULT Lab Routine [facility] Research Other*[id number] Every 6 Months for 2 Occurrences starting 05/04/2024 until 05/24/2025 Health Maintenance Due Date Last Done Comments [...] as of this encounter Visit Diagnoses Diagnosis [facility] Research Other*[id number] documented in this encounter Care Teams Architectural Design Professor Relationship Specialty Start Date End Date Maldonado Latif CRNP [address] [facility] [address] [place] [address] PCP - General Nurse Practitioner 03/10/21 documented as of this encounter
--- OUTSIDE RECORDS SUMMARY | 2024-07-15 07:09 | External Medical Summary | Summary of Care ---
Author Name Unknown Organization [facility] Address [address] [place] [address] Phone [phone] Care Team Providers Care Executive Staff Assistant Name Role Phone Maldonado Latif Primary Care Provider Reason for Referral * Evaluate & Treat - Unlimited Visits (Within 10 days (routine)) Specialty Diagnoses / Procedures Referred By Mckay quevedo Referred To Contact Margaret Uribe CRNP [phone] [place] [phone] Referral ID Status Reason Start Date Expiration Date V isits Requested Visits Authorized Specialty Services Required Question Answer Referral Priority Within 10 days (routine) Where should this appointment be scheduled? [facility] Reason for Visit * Reason Onset Date Comments Test Results 04/29/2024 Encounter Details Date Type Department Care Team (Late st Contact Info) Description 04/29/2024 Telephone Gynecology/Obstetrics [facility] [address] [place] [address] Margaret Uribe CRNP [address] [place] [phone] Test Results Allergies No known active allergiesdocumented as of this encounter (statuses as of 05/01/2024) Medications Medication Sig Dispensed Refills Start Date End Date Status Pediatric Vdqutvgq-Cuoaqlnb-D (FLINTSTONES COMPLETE) CHEW Take 1 Tab by mouth 2 times a day. Active Levothyroxine Sodium 25 MCG Oral Tablet (Levo-T) Pt taking 125 mcg 07/12/2020 Active Vitamin D3 1.25 MG (38304 UT) Oral Capsule Take 1 Capsule by [...] lunch, and dinner) 1 Kit 03/18/2024 Active [employer]io In Vitro Strip (Glucose Blood)Indications:Sup ervision of high risk in second trimester,Previous gastric bypass affecting , antepartum Use to test blood sugars 4 times daily (fasting, 1 hour after breakfast, lunch, and dinner) 125 Strip 6 03/18/2024 Active [employer] Delica Lancets 30GIndications:Superv ision of high risk in second trimester,Previous gastric bypass affecting , antepartum Use to test blood sugars 4 times daily (fasting, 1 hour after breakfast, lunch, and dinner) 200 Each 6 03/18/2024 Active documented as of this encounter (statuses as of 05/01/2024) Active Problems Problem Noted Date Diagnosed Date Antepartum anemia complicating 024 Overview: Referred for iron infusions at 28 wks with 11 completed weeks gestation 12/13 Supervision of high risk in [facility] 12/23/2023 Obesity in , antepartum 12/23/2023 [...] patient is s/p laprascopic gastric bypass at [facility] on May 19, 2009. Last [...] -Vitamin D 800 IU daily -Calcium citrate 9566-3277 mg daily (better absorbed than calcium carbonate) [...] as of this encounter (statuses as of 05/01/2024) Resolved Problems Problem Noted Date Diagnosed Date [...] Lalito Villanueva MD Hem/Onc , normal first 07/27/2015/07/2016 Overview: Baby boy "Brandon". Received tDap 01/04/2016 [...] as of this encounter (statuses as of 05/01/2024) Immunizations Name Administration Dates Next Due HPV [...] money to get more. Never true 02/06/2024 [place] Depression Scale Answer Date Recorded [place] Depression Scale Total 0 12/23/2023 The thought [...] Info) Description 05/05/2024 8:30 AM EDT Telemedicine [facility] [address] [place] [address] Madison Mason RDN [address] [place] [address] 05/06/2024 2:30 PM EDT Office Visit Computer Systems Analyst [facility] [place] [address] [place] [address] Eleazar Iverson MD [address] [place] [address] 05/06/2024 2:30 PM EDT Imaging Radiology [facility] [address] [place] [address] 05/13/2024 4:30 PM EDT Office Visit Gynecology/Obstetrics [facility] [address] [place] [address] Mendy Upton PA-C [address] [place] [address] 05/28/2024 2:30 PM EDT Imaging Maternal Medicine Imaging, [address] [place] [address] Scheduled Referrals Name Type Priority Associated Diagnoses [...] antepartum documented in this encounter Care Teams Executive Staff Assistant Relationship Specialty Start Date End Date Maldonado Latif CRNP [address] [facility] [address] [place] [address] PCP - General Nurse Practitioner 03/10/21 documented as of this encounter
--- OUTSIDE RECORDS SUMMARY | 2024-07-15 07:09 | External Medical Summary | Summary of Care ---
Author Name Unknown Organization [facility] Address [address] [place] [address] Phone [phone] Care Team Providers Care Technical Advisor Name Role Phone Maldonado Latif Primary Care Provider Reason for Visit * Reason Comments Return Visit Encounter Details Date Type Department Care Team (Late st Contact Info) Description 04/29/2024 8:00 AM EDT Office Visit Gynecology/Obstetric s Cristino Mckeon [address] [facility] [place] [address] Collette Cervantes CRNP [address] [facility] [place] [address] Supervision of high risk in third trimester*; Obesity in , antepartum; Hypothyroidism affecting in third trimester; Previous gastric bypass affecting , antepartum; Previous delivery, antepartum condition or complication; Need for vwqiiepkjv-dpfqskw-ns rtussis (Tdap) vaccine Allergies No known active allergiesdocumented as of this encounter (statuses as of 04/29/2024) Medications Medication Sig Dispensed Refills Start Date End Date Status Pediatric Xlohznsy-Zowndoou-Q (FLINTSTONES COMPLETE) CHEW Take 1 Tab by mouth 2 times a day. Active Levothyroxine Sodium 25 MCG Oral Tablet (Levo-T) Pt taking 125 mcg 07/12/2020 Active Vitamin D3 1.25 MG (04283 UT) Oral Capsule Take 1 Capsule by [...] as of this encounter (statuses as of 04/29/2024) Active Problems Problem Noted Date Diagnosed Date with 11 completed weeks gestation 12/13 Supervision of high risk in [facility] 12/23/2023 Obesity in , antepartum [...] patient is s/p laprascopic gastric bypass at [facility] on May 19, 2009. Last seen [...] -Vitamin D 800 IU daily -Calcium citrate 9500-9610 mg daily (better absorbed than calcium carbonate) [...] as of this encounter (statuses as of 04/29/2024) Resolved Problems Problem Noted Date Diagnosed Date [...] as of this encounter (statuses as of 04/29/2024) Immunizations Name Administration Dates Next Due HPV [...] money to get more. Never true 02/06/2024 [place] Depression Scale Answer Date Recorded [place] Depression Scale Total 0 12/23/2023 The thought [...] No 02/06/2024 Does the household have a [facility] source of income? (Household - for [...] Sign Reading Time Taken Comments Blood Pressure 106/66 04/29/2024 7:58 AM EDT Pulse - - Temperature - - Respiratory Rate - - Oxygen Saturation - - Inhaled Oxygen Concentration - - Weight 124.6 kg (274 lb 9.6 oz) 04/29/2024 7:58 AM EDT Height - - Body Mass Index 50.22 01/20/2024 1:34 PM EDT documented in this encounter Progress Notes * Collette Cervantes CRNP - 04/29/2024 8:13 AM EDT 28w3d Undecided regarding TOLAC vs repeat c/s. First delivery c/s, then second was . Recovery was much more difficult from . In addition, she wants BTL. Encouraged her to make an appt with physician to discuss pros and cons of each. Checking blood sugars for a week rather than glucola. Today is last day. Advised to send myG message with readings tomorrow. Baby is active. No contractions, bleeding, LOF. Third tri labs today, TDAP today. Has MFM appt upcoming. PRISCILLA Luo * Rachell Salmon MED ASSIST - 04/29/2024 7:58 AM EDT 28w3d Denies vaginal bleeding/rom + movements Agreeable to TDAP today Pt checking blood sugars, last day today. Pt states sugars have been good Doing labs on way out today documented in this encounter Nursing Notes * Daniela Morelos LPN - 04/29/2024 8:14 AM EDT Patient here for tdap injection. Patient doing well no complaints. Injection given IM as ordered. Patient tolerated well. Patient to follow up as directed. Patient instructed to call if any complications. Patient verbalized understanding of instructions given. Injection site: Left Deltoid Medication Source: Dispensed stock medication documented in this encounter Plan of Treatment Upcoming Encounters Date Type Department Care Team (Late st Contact Info) Description 04/29/2024 8:40 AM EDT Laboratory Laboratory, Cristino Mckeon [place] [address] [place] [place] [id number] Derik Mckeon [address] [place] [address] Supervision of high risk in second trimester; Hypothyroidism affecting in second trimester 05/05/2024 8:30 AM EDT Telemedicine Nutrition, Roland Mckeon [address] [place] [address] Madison Mason, RDN [address] [place] [address] 05/06/2024 2:30 PM EDT Office Visit Perfume Compounder Obstetrics Maternal Medicine, [place] [address] [place] [address] Eleazar Iverson MD [address] [place] [address] 05/06/2024 2:30 PM EDT Imaging Radiology [facility] [place], [place] [address] [place] [address] 05/13/2024 4:30 PM EDT Office Visit Gynecology/Obstetric s Cristino Mckeon [address] [place] [address] Mendy Upton PA-C [address] [place] [address] 05/28/2024 2:30 PM EDT Imaging Maternal Medicine Imaging, Roland Mckeon [address] [place] [phone] Health Maintenance Due Date Last Done Comments Hepatitis B (1 of 3 - 19+ 3-dose series) 2009 HPV/Co-Test 2020 Depression Screening 09/20/2021 09/20/2020 COVID-19 Vaccine (2022- season) 2023 Cervical Cancer Screening 09/22/2023 Pap Smear 09/22/2023 09/22/2020, 10/11, 10/18/2016, Additional history exists Influenza Vaccine (FLU shot) (Season Ended) 2024 09/11/2018, 07/23/2016, 08/25/2014, Additional history exists TSH 01/19/2025 01/20/2024, 12/12, 09/08/2020, Additional history exists DTaP,Tdap,and Td Vaccines (5 [...] antepartum Previous delivery, antepartum condition or complication Need for enrxrrjuak-tkyzipc-ffxiagndc (Tdap) vaccine Need for prophylactic vaccination with combined rrzojaoxmu-hupiabc-cfvboghtk (DTP) vaccine Supervision of high risk in second trimester Unspecified high-risk Hypothyroidism affecting in second trimester documented in this encounter Care Teams Technical Advisor Relationship Specialty Start Date End Date Maldonado Latif CRNP [address] [address] PCP - General Nurse Practitioner 03/10/21 documented as of this encounter
--- OUTSIDE RECORDS SUMMARY | 2024-07-15 07:09 | External Medical Summary | Summary of Care ---
Author Name Unknown Organization [facility] Address [address] [place] [address] Phone [phone] Care Team Providers Care Roll Capper Name Role Phone Maldonado Latif Primary Care Provider Reason for Visit * Reason Comments Return Visit Encounter Details Date Type Department Care Team (Late st Contact Info) Description 04/14/2024 8:00 AM EDT Office Visit Gynecology/Obstetric s Cristino Mckeon [address] [facility] [place] [address] Collette Cervantes CRNP [address] [place] [address] Supervision of high risk in second trimester*; Obesity in , antepartum; Hypothyroidism affecting in second trimester; Previous gastric bypass affecting , antepartum; Previous delivery, antepartum condition or complication Allergies No known active allergiesdocumented as of this encounter (statuses as of 04/14/2024) Medications Medication Sig Dispensed Refills Start Date End Date Status Pediatric Ryodkzat-Bvuvendb-K (FLINTSTONES COMPLETE) CHEW Take 1 Tab by mouth 2 times a day. Active Levothyroxine Sodium 25 MCG Oral Tablet (Levo-T) Pt taking 125 mcg 07/12/2020 Active Vitamin D3 1.25 MG (22461 UT) Oral Capsule Take 1 Capsule by [...] as of this encounter (statuses as of 04/14/2024) Active Problems Problem Noted Date Diagnosed Date with 11 completed weeks gestation 12/13 Supervision of high risk in [facility] 12/23/2023 Obesity in , antepartum [...] baby Was seen in the past by [facility] Endocrinology (last visit 07/2020) Thyroid [...] is s/p laprascopic gastric bypass at [facility] on May 19, 2009. Last seen by [...] -Vitamin D 800 IU daily -Calcium citrate 8449-6175 mg daily (better absorbed than calcium carbonate) [...] as of this encounter (statuses as of 04/14/2024) Resolved Problems Problem Noted Date Diagnosed Date [...] as of this encounter (statuses as of 04/14/2024) Immunizations Name Administration Dates Next Due HPV Vaccine, 4-Valent 04/11/2014,01/09/2014,11/2003 Seasonal Influenza, Quadriva lent, No Preserve, IM 09/11/2018 Seasonal Influenza, Split, I IV3, No Preserve, Inj 09/11/2013 Seasonal Influenza, Split, I IV3, With Preserve, Inj 07/23/2016,08/25/2014 TDAP (age 10 and older)(Boostrix) 04/10/2018,,08/11/2013 documented as of this encounter Social History [...] money to get more. Never true 02/06/2024 [place] Depression Scale Answer Date Recorded [place] Depression Scale Total 0 12/23/2023 The thought of harming myself has occurred to me . Never 12/23/2023 Estimated Date of Delivery Comme nts Yes [...] Sign Reading Time Taken Comments Blood Pressure 104/62 04/14/2024 7:59 AM EDT Pulse - - Temperature - - Respiratory Rate - - Oxygen Saturation - - Inhaled Oxygen Concentration - - Weight 124.2 kg (273 lb 12.8 oz) 04/14/2024 7:59 AM EDT Height - - Body Mass Index 50.08 01/20/2024 1:34 PM EDT documented in this encounter Progress Notes * Collette Cervantes CRNP - 04/14/2024 8:17 AM EDT 26w2d No concerns. Baby is active. No contractions, bleeding, LOF. Started checking blood sugars yesterday, will bring readings to her next visit. Labs, TDAP with next visit. PRISCILLA Luo * Rachell Salmon MED ASSIST - 04/14/2024 7:59 AM EDT 26w2d No concerns Vaginal bleeding: no ROM: no movement: present Contractions: no Nausea: no Vomiting: no Headaches: no documented in this encounter Plan of Treatment Upcoming Encounters Date Type Department Care Team (Late st Contact Info) Description 04/29/2024 8:00 AM EDT Office Visit Gynecology/Obstetrics Cristino Mckeon [address] [place] [address] Collette Cervantes CRNP [address] [place] [address] 05/05/2024 8:30 AM EDT Telemedicine Roland Genao [address] [place] [address] Madison Mason RDN [address] [place] [address] 05/06/2024 2:30 PM EDT Office Visit Vice President Global Advertising Sales Obstetrics Maternal Medicine, [address] [place] [address] Eleazar Iverson MD [address] [place] [address] 05/06/2024 2:30 PM EDT Imaging Radiology [facility] [place] [address] [place] [address] 05/28/2024 2:30 PM EDT Imaging Maternal Medicine Imaging, [address] [place] [address] Health Maintenance Due Date Last Done [...] 09/08/2020, Additional history exists DTaP,Tdap,and Td Vaccines (4 - Td or Tdap) 04/10/2028 04/10/2018, 01/04/2016, 08/11/2013 MENINGOCOCCAL (MENACTRA/MENVEO) Aged Out 06/11/2006 No longer [...] Diagnoses Diagnosis Supervision of high risk in second trimester- Primary Unspecified high-risk Obesity in , antepartum Obesity complicating , childbirth, or the puerperium, antepartum condition or complication Hypothyroidism affecting in second trimester Previous gastric bypass affecting , antepartum Previous delivery, antepartum condition or complication documented in this encounter Care Teams Roll Capper Relationship Specialty Start Date End Date Maldonado Latif CRNP [address] [address] PCP - General Nurse Practitioner 03/10/21 documented as of this encounter
--- OUTSIDE RECORDS SUMMARY | 2024-07-15 07:09 | External Medical Summary | Summary of Care ---
Author Name Unknown Organization [facility] Address [address] [place] [address] Phone [phone] Care Team Providers Care Traveling Engineer Name Role Phone Maldonado Latif Primary Care Provider Reason for Visit * Reason Onset Date Comments Medical Nutrition Therapy 04/20/2024 Encounter Details Date Type Department Care Team (Late st Contact Info) Description 04/20/2024 10:30 AM EDT Scheduled Telephone Roland Genao [address] [place] [address] Madison Mason, MALIK [address] [place] [id number] Allergies No known active allergiesdocumented as of this encounter (statuses as of 04/20/2024) Medications Medication Sig Dispensed Refills Start Date End Date Status Pediatric Icgofutv-Gwvuqgdp-G (FLINTSTONES COMPLETE) CHEW Take 1 Tab by mouth 2 times a day. Active Levothyroxine Sodium 25 MCG Oral Tablet (Levo-T) Pt taking 125 mcg 07/12/2020 Active Vitamin D3 1.25 MG (98941 UT) Oral Capsule Take 1 Capsule by mouth once a week. 12/17/2023 Active Gummies 0.18-25 MG Oral Tablet Chewable Take by mouth. Activ e BrainlyTouch Verio Flex System w/Device KitIndications:Superv ision of high risk in second trimester,Previous gastric bypass affecting , antepartum Use to test blood sugars 4 times daily for 7 days, between 26-28 weeks. (fasting, 1 hour after breakfast, lunch, and dinner) 1 Kit 03/18/2024 Active BrainlyTouch Verio In Vitro Strip (Glucose Blood)Indications:Sup ervision [...] as of this encounter (statuses as of 04/20/2024) Active Problems Problem Noted Date Diagnosed Date with 11 completed weeks gestation 12/13 Supervision of high risk in [facility] 12/23/2023 Obesity in , antepartum [...] baby Was seen in the past by [facility] Endocrinology (last visit 07/2020) Thyroid [...] is s/p laprascopic gastric bypass at [facility] on May 19, 2009. Last [...] -Vitamin D 800 IU daily -Calcium citrate 2885-2601 mg daily (better absorbed than calcium carbonate) [...] as of this encounter (statuses as of 04/20/2024) Resolved Problems Problem Noted Date Diagnosed Date [...] as of this encounter (statuses as of 04/20/2024) Immunizations Name Administration Dates Next Due HPV [...] money to get more. Never true 02/06/2024 [place] Depression Scale Answer Date Recorded [place] Depression Scale Total 0 12/23/2023 The thought [...] encounter Miscellaneous Notes * Telephone Encounter - Madison Mason RDN - 04/20/2024 8:16 AM EDT Attempted to contact pt to follow-up after initial nutrition visit from March 19. Left message on pt's voicemail. Encouraged her to contact me if any questions or concerns arise. Reminded her of upcoming follow-up appointment on May 05 at 8:30 AM. Madison Mason RDN, Clinical Dietitian II, [facility] Clinical Nutrition Services [facility] [address] [place] [address] Available via [employer] Portal documented in this encounter Plan of Treatment Upcoming Encounters Date Type Department Care Team (Late st Contact Info) Description 04/29/2024 8:00 AM EDT Office Visit Gynecology/Obstetrics Griffithnohemy Mckeon [address] [place] [address] Collette Cervantes CRNP [address] [place] [address] 05/05/2024 8:30 AM EDT Telemedicine Nutrition, Roland Mike [address] [place] [address] Madison Mason RDN [address] [place] [address] 05/06/2024 2:30 PM EDT Office Visit Sewer Pipe Cleaner Obstetrics Maternal Medicine, [place] [address] [place], [place] [id number] Eleazar Iverson MD [address] [place] [address] 05/06/2024 2:30 PM EDT Imaging Radiology [facility] [place] [address] [place] [address] 05/28/2024 2:30 PM EDT Imaging Maternal Medicine Imaging, Roland Mckeon [address] [place] [phone] Health Maintenance Due Date Last Done [...] filedocumented as of this encounter Care Teams Traveling Engineer Relationship Specialty Start Date End Date Maldonado Latif CRNP [address] [address] PCP - General Nurse Practitioner 03/10/21 documented as of this encounter
--- OUTSIDE RECORDS SUMMARY | 2024-07-15 07:09 | External Medical Summary | Summary of Care ---
Author Name Unknown Organization [facility] Address [address] [place] [address] Phone [phone] Care Team Providers Care Hardwood Floor Finisher Name Role Phone Maldonado Latif Primary Care Provider Reason for Visit * Reason Comments Outpatient Testing Encounter Details Date Type Department Care Team (Late st Contact Info) Description 04/29/2024 8:40 AM EDT Laboratory Laboratory, [facility] [address] [place] [phone] [facility] [address] [place] [address] Supervision of high risk in second trimester; Hypothyroidism affecting in second trimester Allergies No known active allergiesdocumented as of this encounter (statuses as of 04/29/2024) Medications Medication Sig Dispensed Refills Start Date End Date Status Pediatric Eljuthmk-Anjarloo-D (FLINTSTONES COMPLETE) CHEW Take 1 Tab by mouth 2 times a day. Active Levothyroxine Sodium 25 MCG Oral Tablet (Levo-T) Pt taking 125 mcg 07/12/2020 Active Vitamin D3 1.25 MG (02337 UT) Oral Capsule Take 1 Capsule by mouth once a week. 12/17/2023 Active Gummies 0.18-25 MG Oral Tablet Chewable Take by mouth. Activ e [email or web address] Flex System w/Device KitIndications:Superv ision of high risk in second trimester,Previous gastric bypass affecting , antepartum Use to test blood sugars 4 times daily for 7 days, between 26-28 weeks. (fasting, 1 hour after breakfast, lunch, and dinner) 1 Kit 03/18/2024 Active codebenderTouch Verio In Vitro Strip (Glucose Blood)Indications:Sup ervision of high risk in second trimester,Previous gastric bypass affecting , antepartum Use to test blood sugars 4 times daily (fasting, 1 hour after breakfast, lunch, and dinner) 125 Strip 6 03/18/2024 Active codebenderTouch Delica Lancets 30GIndications:Superv ision of high risk in second trimester,Previous gastric bypass affecting , antepartum Use to test blood sugars 4 times daily (fasting, 1 hour after breakfast, lunch, and dinner) 200 Each 6 03/18/2024 Active documented as of this encounter (statuses as of 04/29/2024) Active Problems Problem Noted Date Diagnosed Date with 11 completed weeks gestation 12/13 Supervision of high risk in [facility] 12/23/2023 Obesity in , antepartum 12/23/2023 Overview: [...] past by [facility] Endocrinology (last visit 07/2020) Thyroid ultrasound reveal [...] -Vitamin D 800 IU daily -Calcium citrate 0359-4038 mg daily (better absorbed than calcium carbonate) [...] money to get more. Never true 02/06/2024 [place] Depression Scale Answer Date Recorded [place] Depression Scale Total 0 12/23/2023 The thought [...] Description 05/05/2024 8:30 AM EDT Telemedicine [place], [facility] [address] [place] [address] Madison Mason RDN [address] [place] [address] 05/06/2024 2:30 PM EDT Office Visit Hand Flatwork Finisher Obstetrics Maternal Medicine, [place] [address] [place] [address] Eleazar Iverson MD [address] [place] [address] 05/06/2024 2:30 PM EDT Imaging Radiology [facility] [address] [facility] [place] [address] 05/13/2024 4:30 PM EDT Office Visit Gynecology/Obstetrics Cristino Mckeon [address] [place] [address] Mendy Upton PA-C [address] [place] [address] 05/28/2024 2:30 PM EDT Imaging Maternal Medicine Imaging, Roland Mckeon [address] [place] [phone] Pending Results Name Type Priority Associated Diagnoses Date /Time CBC WITH WBC DIFFERENTIAL AND ANEMIA REFLEX WORKUP Lab Routine Supervision of high risk in second trimester 04/29/2024 8:24 AM EDT SYPHILIS ANTIBODY SCREEN WITH REFLEX TO RPR Lab Routine Supervision of high risk in second trimester 04/29/2024 8:24 AM EDT TSH WITH FREE T4 IF INDICATED Lab Routine Hypothyroidism affecting in second trimester 04/29/2024 8:24 AM EDT ANEMIA CBC Lab Routine Supervision of high risk in second trimester 04/29/2024 8:24 AM EDT DIFFERENTIAL, AUTOMATED Lab Routine Supervision of high risk in second trimester 04/29/2024 8:24 AM EDT ANEMIA REFLEX CHEMISTRY HOLD Lab Routine Supervision of high risk in second trimester 04/29/2024 8:24 AM EDT SYPHILIS ANTIBODY SCREEN Lab Routine Supervision of high risk in second trimester 04/29/2024 8:24 AM EDT Health Maintenance Due Date Last Done [...] Diagnosis Supervision of high risk in second trimester Unspecified high-risk Hypothyroidism affecting in second trimester documented in this encounter Care Teams Hardwood Floor Finisher Relationship Specialty Start Date End Date Maldonado Latif CRNP [address] [address] PCP - General Nurse Practitioner 03/10/21 documented as of this encounter
--- OUTSIDE RECORDS SUMMARY | 2024-07-15 07:09 | External Medical Summary ---
Author Name Unknown Address Unknown Organization K01:[facility] [place] [address] [place] [address] Laboratory Report Ordering Provider Test Date Status INDER,RACHEL 04/29/2024 08:24:47 Final Observation Date Value Abnormality Reference (Units ) Status Ferritin 04/29/2024 08:24:47 8 Below low normal 13- 150 (ng/mL) Final Performing Location [facility] [address] [facility] [address]
--- OUTSIDE RECORDS SUMMARY | 2024-07-15 07:09 | External Medical Summary | Summary of Care ---
Author Name Unknown Organization [facility] Address [address] [place] [address] Phone [phone] Care Team Providers Care Manager Reliability Name Role Phone Maldonado Latif Primary Care Provider Reason for Visit * Reason Comments Blood Management Program Encounter Details Date Type Department Care Team (Late st Contact Info) Description 04/29/2024 Documentation Patient Blood Management, [place] [address] [place] [address] Fausto Peña RN Allergies No known active allergiesdocumented as of this encounter (statuses as of 04/30/2024) Medications Medication Sig Dispensed Refills Start Date End Date Status Pediatric Nuochybq-Vnqyyxue-Z (FLINTSTONES COMPLETE) CHEW Take 1 Tab by mouth 2 times a day. Active Levothyroxine Sodium 25 MCG Oral Tablet (Levo-T) Pt taking 125 mcg 07/12/2020 Active Vitamin D3 1.25 MG (14607 UT) Oral Capsule Take 1 Capsule by [...] as of this encounter (statuses as of 04/30/2024) Active Problems Problem Noted Date Diagnosed Date Antepartum anemia complicating 024 Overview: Referred for iron infusions at 28 wks with 11 completed weeks gestation 12/13 Supervision of high risk in [facility] 12/23/2023 Obesity in , antepartum 12/23/2023 Overview: [...] Was seen in the past by [facility] Endocrinology (last visit 07/2020) Thyroid [...] is s/p laprascopic gastric bypass at [facility] on May 19, 2009. Last [...] -Vitamin D 800 IU daily -Calcium citrate 9242-0924 mg daily (better absorbed than calcium carbonate) [...] as of this encounter (statuses as of 04/30/2024) Resolved Problems Problem Noted Date Diagnosed Date [...] as of this encounter (statuses as of 04/30/2024) Immunizations Name Administration Dates Next Due HPV [...] money to get more. Never true 02/06/2024 [place] Depression Scale Answer Date Recorded [place] Depression Scale Total 0 12/23/2023 The thought [...] Blood Management Name: Blanca Simms REQUESTING SERVICE: [facility] REASON FOR REFERRAL: new evaluation outpatient, anemia in [place]: 07/19/24 Anemia Evaluation: Latest Reference Range & Units 04/29/24 08:24 HGB 12.0 - 15.3 g/dL 10.4 (L) HCT 36.0 - 45.2 % 32.5 (L) (L): Data is abnormally low Current Patient Medications: Medications that may impair hemostasis: none Medications that may impair iron absorption: none Patient Refused Blood Transfusion? (e.g. Mu-ism): no Possible Contributing Factors: iron deficiency Treatment Recommendations: IV iron per OB MTM guidelines. 04/29 -myG sent 04/30 - Patient returned myG, agreeable to IV iron at [facility]. Will submit OB MTM. Thank you for allowing Blood Management to participate in the care of this patient. documented in this encounter Plan of Treatment Upcoming Encounters Date Type Department Care Team (Late st Contact Info) Description 05/05/2024 8:30 AM EDT Telemedicine Nutrition, Roland Mckeon [address] [place] [address] Madison Mason, MALIK [address] [place] [address] 05/06/2024 2:30 PM EDT Office Visit Cereal Supervisor Obstetrics Maternal Medicine, [place] [address] [place], [place] [phone] Eleazar Iverson MD [address] [place], [place] [phone] 05/06/2024 2:30 PM EDT Imaging Radiology [facility] [address], [place] [phone] 05/13/2024 4:30 PM EDT Office Visit Gynecology/Obstetrics Cristino Mckeon [address] [place] [address] Mendy Upton PA-C [address] [place] [address] 05/28/2024 2:30 PM EDT Imaging Maternal Medicine Imaging, Roland Mckeon [address] [place] [phone] Health [...] filedocumented as of this encounter Care Teams Manager Reliability Relationship Specialty Start Date End Date Maldonado Latif CRNP [address] [facility] [address] [place] [address] PCP - General Nurse Practitioner 03/10/21 documented as of this encounter
--- OUTSIDE RECORDS SUMMARY | 2024-07-15 07:10 | External Medical Summary | Summary of Care ---
Author Name Unknown Organization [facility] Address [address] [place] [address] Phone [phone] Care Team Providers Care Hardwood Sawyer Name Role Phone Maldonado Latif Primary Care Provider Reason for Referral * (Within 10 days (routine)) - Pending Review Specialty Diagnoses / Procedures Referred By Contac t Referred To Contact Diagnoses Supervision of high risk , antepartum Procedures QUAD SCREEN Kiah Morley DNP, CNM [address] [place] [address] Referral ID Status Reason Start Date Expiration Date V isits Requested Visits Authorized [id number] Pending Review 02/19/[phone] Reason for Visit * Reason Comments Return Visit 18w3d Encounter Details Date Type Department Care Team (Late st Contact Info) Description 02/19/2024 4:15 PM EDT Office Visit Gynecology/Obstetric s [facility] [address] [facility] [place] [address] Kiah Morley DNP, CNM [address] [place] [address] Supervision of high risk , antepartum*; Obesity in , antepartum; Hypothyroidism affecting , antepartum; Previous gastric bypass affecting , antepartum; Previous delivery, antepartum condition or complication Allergies No known active allergiesdocumented as of this encounter (statuses as of 02/19/2024) Medications Medication Sig Dispensed Refills Start Date End Date Status Pediatric Ziqoleht-Jfcycfjb-H (FLINTSTONES COMPLETE) CHEW Take 1 Tab by mouth 2 times a day. 0 Active Levothyroxine Sodium 25 MCG Oral Tablet (Levo-T) Pt taking 125 mcg 0 07/12/2020 Active Vitamin D3 1.25 MG (79458 UT) Oral Capsule Take 1 Capsule by mouth once a week. 0 12/17/2023 Active Gummies 0.18-25 MG Oral Tablet Chewable Take by mouth. 0 Active documented as of this encounter (statuses as of 02/19/2024) Active Problems Problem Noted Date Diagnosed Date with 11 completed weeks gestation 12/13 Supervision of high risk in [facility] 12/23/2023 Obesity in , antepartum 12/23/2023 Overview: [...] 12/23/2023 10:45 AM Last Assessment & Plan: CONSIDERATIONS: Discussed obstetrical risks associated with class III obesity (pre- BMI of greater than or equal to 40) Reviewed that the accuracy of ultrasound at diagnosing anomalies is significantly decreased for women with an increased BMI. RECOMMENDATIONS: Recommend restricting weight gain during to 11-20 pounds. Patient should be referred for a nutrition consult. Recommend evaluation for signs and symptoms (snoring, excessive daytime sleepiness witnessed apnea or unexplained hypoxia) of obstructive sleep apnea. If any of these are present, referral to Sleep Medicine specialist for further evaluation should be considered. Recommend performing gestational diabetes mellitus screen now (if not performed at first visit) and repeat again at 26-28 weeks if early screen is normal. Recommend Maternal- Medicine ultrasound for anatomy at 20 weeks and for growth every 4 weeks thereafter. For patients with Class 3 obesity, we recommend baseline preeclamptic labs with CBC, serum AST/ALT/creatinine and 24 hour urine protein NUNO if not already done. For patients with Class 3 obesity, we recommend weekly surveillance starting at 34 weeks and delivery by EDC. Recommend anesthesia consult during the antepartum period. 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 Was seen in the past by [facility] Endocrinology (last visit 07/2020) Thyroid ultrasound reveal small thyroid nodule Managed with Levothyroxine 25 mcg daily Lab Results Component Value Date/Time TSH - [facility] 1.38 12/23/2023 10:21 AM TSH - [facility] <0.01 (L) 12/03/2018 03:50 PM Last Assessment & Plan: CONSIDERATIONS: Discussed with the patient that uncontrolled maternal hypothyroidism is associated with compromised neuropsychological development of the developing fetus in addition to an increased risk of miscarriage, , preeclampsia, placental abruption, low weight infants, and IUFD. These risks are modifiable with thyroid-replacement medications. Thyroid-replacement therapies are safe to use during and essential to normal development. One third of hypothyroid patients will require increased T4 supplementation in . Discussed that she should space her thyroxine dose and her vitamin, iron or calcium doses by 2-3 hours as these can interfere with thyroxine absorption. RECOMMENDATIONS: In women with pre- diagnosis of hypothyroidism, recommend assessing TSH every 4-6 weeks until the patient is euthyroid based on TSH (first trimester, 0.1-2.5 mIU/L; second trimester, 0.2-2.5 mIU/L; third trimester, 0.3-2.5 mIU/L). After any adjustment of thyroid replacement dosing, recheck TSH 4-6 weeks later. Once euthyroidism is attained, TSH should be assessed every trimester. In those with previous radioiodine ablation or thyroidectomy, anticipatory increases of T4 replacement by 25% are suggested to decrease the likelihood of significant hypothyroidism in . Maternal Medicine ultrasound is only indicated if patient requires an adjustment of her thyroid replacement therapy dosing after the first trimester of . Refer back to MFM if this occurs. She should continue to have growth assessments with MFM while she is clinically hypothyroid. If patient experiences thyroid goiter or nodule during , we recommend that she be referred to endocrinology for evaluation and management. is not a contraindication to fine needle aspiration but should be handled at the discretion of the solar business developer. If hypothyroidism is poorly controlled, consider weekly NSTs at 32 weeks. Previous gastric bypass affecting , ant epartum 12/23/2023 Overview: The patient is s/p laprascopic gastric bypass at [facility] on May 19, 2009. Last seen [...] -Vitamin D 800 IU daily -Calcium citrate 6784-2316 mg daily (better absorbed than calcium carbonate) [...] delivery, antepartum condition or complication 12/23/2023 Overview: 2015 Primary LTCS, post dates, due to arrest of dilatation 2017 2023 Plan: undecided at this time Intestinal postoperative nonabsorption 0 Hypothyroidism 11/27/2019 Estimated Date of Delivery Comme nts Yes 07/19/2024 Based on Ultraso und documented as of this encounter (statuses as of 02/19/2024) Resolved Problems Problem Noted Date Diagnosed Date [...] as of this encounter (statuses as of 02/19/2024) Immunizations Name Administration Dates Next Due HPV [...] money to get more. Never true 02/06/2024 [place] Depression Scale Answer Date Recorded [place] Depression Scale Total 0 12/23/2023 The thought [...] Sign Reading Time Taken Comments Blood Pressure 104/60 02/19/2024 4:07 PM EDT Pulse - - Temperature - - Respiratory Rate - - Oxygen Saturation - - Inhaled Oxygen Concentration - - Weight 122 kg (269 lb) 02/19/2024 4:07 PM EDT Height - - Body Mass Index 49.2 01/20/2024 1:34 PM EDT documented in this encounter Progress Notes * Kiah Morley, JAKY, CNM - 02/19/2024 4:17 PM EDT 18w3d Doing well overall. Plans to do QUAD screen today. Encouraged and discussed benefits. FHTs 140s Has Anatomy on 03/03/24 with MFM Reviewed bleeding precautions and encouraged hydration. RTO in 4 weeks. documented in this encounter Nursing Notes * Susan Gleason CMA - 02/19/2024 4:07 PM EDT Chief Complaint Patient presents with Return Visit 18w3d Pt agreeable to Quad screen. documented in this encounter Plan of Treatment Upcoming Encounters Date Type Department Care Team (Late st Contact Info) Description 03/03/2024 8:30 AM EDT Office Visit Presentation Specialist Obstetrics Maternal Medicine, [place] [address] [place] [address] Dionna Murray, [address] [place] [address] 03/03/2024 8:30 AM EDT Imaging Radiology [facility], [place] [address] [place] [address] 03/18/2024 1:30 PM EDT Office Visit Gynecology/Obstetrics Cristino Mckeon [address] [facility] [place] [address] BackerMargaret CRNP [address] [place] [address] 03/19/2024 8:00 AM EDT Telemedicine [place], Roland Mckeon [address] [place] [address] Madison Mason RDN [address] [place] [address] Pending Results Name Type Priority Associated Diagnoses Date /Time QUAD SCREEN Lab Routine Supervision of high risk , antepartum 02/19/2024 4:34 PM EDT Scheduled Orders Name Type Priority Associated Diagnoses Orde r Schedule QUAD SCREEN Lab Routine Supervision of high risk , antepartum Expected: 02/19/2024, Expires: 02/18/2025 Health Maintenance Due Date Last Done Comments [...] Visit Diagnoses Diagnosis Supervision of high risk , antepartum- Primary Obesity in , antepartum Obesity complicating , childbirth, or the puerperium, antepartum condition or complication Hypothyroidism affecting , antepartum Previous gastric bypass affecting , antepartum Previous delivery, antepartum condition or complication documented in this encounter Care Teams Hardwood Sawyer Relationship Specialty Start Date End Date Maldonado Latif CRNP [address] [address] PCP - General Nurse Practitioner 03/10/21 documented as of this encounter
--- OUTSIDE RECORDS SUMMARY | 2024-07-15 07:10 | External Medical Summary | Summary of Care ---
Author Name Unknown Organization [facility] Address [address] [place] [address] Phone [phone] Care Team Providers Care Wood Block Artist Name Role Phone Maldonado Latif Primary Care Provider Reason for Visit * Reason Comments Outpatient Testing * (Within 10 days (routine)) - Pending Review Specialty Diagnoses / Procedures Referred By Mckay t Referred To Contact Diagnoses Supervision of high risk , antepartum Procedures QUAD SCREEN Kiah Morley, DNP, CNM [address] [place] [address] Referral ID Status Reason Start Date Expiration Date V isits Requested Visits Authorized [id number] Pending Review 02/19/[phone] Encounter Details Date Type Department Care Team (Late st Contact Info) Description 02/19/2024 4:20 PM EDT Laboratory Laboratory, [facility] [address] [place] [phone] [facility] [address] [place] [address] Supervision of high risk , antepartum Allergies No known active allergiesdocumented as of this encounter (statuses as of 02/19/2024) Medications Medication Sig Dispensed Refills Start Date End Date Status Pediatric Qtpraydo-Rslcwtgz-O (FLINTSTONES COMPLETE) CHEW Take 1 Tab by mouth 2 times a day. 0 Active Levothyroxine Sodium 25 MCG Oral Tablet (Levo-T) Pt taking 125 mcg 0 07/12/2020 Active Vitamin D3 1.25 MG (17766 UT) Oral Capsule Take 1 Capsule by mouth once a week. 0 12/17/2023 Active Gummies 0.18-25 MG Oral Tablet Chewable Take by mouth. 0 Active documented as of this encounter (statuses as of 02/19/2024) Active Problems Problem Noted Date Diagnosed Date with 11 completed weeks gestation 12/13 Supervision of high risk in [facility] 12/23/2023 Obesity in , antepartum 12/23/2023 [...] be handled at the discretion of the paint roller covers supervisor. If hypothyroidism is poorly controlled, consider weekly NSTs at 32 weeks. Previous gastric bypass affecting , ant epartum 12/23/2023 Overview: The patient is s/p laprascopic gastric bypass at [facility] on May 19, 2009. Last seen by [...] -Vitamin D 800 IU daily -Calcium citrate 1013-7646 mg daily (better absorbed than calcium carbonate) [...] money to get more. Never true 02/06/2024 [place] Depression Scale Answer Date Recorded [place] Depression Scale Total 0 12/23/2023 The thought [...] Description 03/03/2024 8:30 AM EDT Office Visit Electrical Products Engineer Obstetrics Maternal Medicine, [address] [address] Dionna Murray [address] [place] [address] 03/03/2024 8:30 AM EDT [facility] [address] [place] [address] 03/18/2024 1:30 PM EDT Office Visit Gynecology/Obstetrics Cristino Mckeon [address] [facility] [place] [address] Margaret Uribe CRNP [address] [facility] [place] [address] 03/19/2024 8:00 AM EDT Telemedicine Nutrition, Roland Mckeon [address] [place] [address] Madison Mason, RDN [address] [place] [address] Pending Results Name Type Priority Associated Diagnoses Date /Time QUAD SCREEN Lab Routine Supervision of high risk , antepartum 02/19/2024 4:34 PM EDT Health Maintenance Due Date Last [...] Diagnoses Diagnosis Supervision of high risk , antepartum documented in this encounter Care Teams Wood Block Artist Relationship Specialty Start Date End Date Maldonado Latif CRNP [address] [facility] [address] [place] [address] PCP - General Nurse Practitioner 03/10/21 documented as of this encounter
--- OUTSIDE RECORDS SUMMARY | 2024-07-15 07:10 | External Medical Summary | Summary of Care ---
Author Name Unknown Organization [facility] Address [address] [place] [address] Phone [phone] Care Team Providers Care Tailer In Name Role Phone Maldonado Latif Primary Care Provider Reason for Visit * Reason Comments Return Visit Encounter Details Date Type Department Care Team (Late st Contact Info) Description 03/18/2024 1:30 PM EDT Office Visit Gynecology/Obstetric s Cristino Mckeon [address] [place] [address] Margaret Uribe CRNP [address] [place] [address] Supervision of high risk in second trimester*; Obesity in , antepartum; Hypothyroidism affecting in second trimester; Previous gastric bypass affecting , antepartum; Previous delivery, antepartum condition or complication Allergies No known active allergiesdocumented as of this encounter (statuses as of 03/18/2024) Medications Medication Sig Dispensed Refills Start Date End Date Status Pediatric Efbfapqd-Qqqyhhrn-V (FLINTSTONES COMPLETE) CHEW Take 1 Tab by mouth 2 times a day. 0 Active Levothyroxine Sodium 25 MCG Oral Tablet (Levo-T) Pt taking 125 mcg 0 07/12/2020 Active Vitamin D3 1.25 MG (07020 UT) Oral Capsule Take 1 Capsule by mouth once a week. 0 12/17/2023 Active Gummies 0.18-25 MG Oral Tablet Chewable Take by mouth. 0 Activ e OneTouch Verio Flex System w/Device KitIndications:Superv ision of high risk in second trimester,Previous gastric bypass affecting , antepartum Use to test blood sugars 4 times daily for 7 days, between 26-28 weeks. (fasting, 1 hour after breakfast, lunch, and dinner) 1 Kit 0 03/18/2024 Active OneTouch Verio In Vitro Strip [...] as of this encounter (statuses as of 03/18/2024) Active Problems Problem Noted Date Diagnosed Date with 11 completed weeks gestation 12/13 Supervision of high risk in [facility] 12/23/2023 Obesity in , antepartum 12/23/2023 [...] 12/23/2023 10:45 AM Last Assessment & Plan: Low risk quad screen result appreciated as well as early 1'GTT (low). Plan of care reviewed; will schedule serial growth assessments q4-6 weeks. Due to h/o bariatric surgery, suggest FSBS x 7 days in lieu of repeat 1'GTT in the third trimester. 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 End[facility]ology (last visit [...] patient is s/p laprascopic gastric bypass at [facility] on May 19, 2009. Last seen by [...] -Vitamin D 800 IU daily -Calcium citrate 5313-8735 mg daily (better absorbed than calcium carbonate) [...] as of this encounter (statuses as of 03/18/2024) Resolved Problems Problem Noted Date Diagnosed Date [...] as of this encounter (statuses as of 03/18/2024) Immunizations Name Administration Dates Next Due HPV [...] money to get more. Never true 02/06/2024 [place] Depression Scale Answer Date Recorded [place] Depression Scale Total 0 12/23/2023 The thought [...] Sign Reading Time Taken Comments Blood Pressure 102/62 03/18/2024 1:23 PM EDT Pulse - - Temperature - - Respiratory Rate - - Oxygen Saturation - - Inhaled Oxygen Concentration - - Weight 122.9 kg (271 lb) 03/18/2024 1:23 PM EDT Height - - Body Mass Index 49.57 01/20/2024 1:34 PM EDT documented in this encounter Progress Notes * Margaret Uribe CRNP - 03/18/2024 1:27 PM EDT 22w3d + movement. No pain or bleeding. Anatomy scan completed with MFM, scheduled for follow up growth scans with them. Having a boy! Low risk Quad screen. TSH, syphilis screen, CBC ordered for next visit in 4 weeks. Will check blood sugars x7 days in lieu of GTT given prior gastric bypass surgery. Rx sent for testing supplies and provided with log book. She is familiar with using a glucometer - encouraged to look at [employer] website, or contact the office, should she had any questions. Discussed checking 4x/day for 7 days between 26w0d and 28w6d. Fasting 8-10 hours overnight, fasting glucose goal <95; 1 hr after each meal, goal <140. She should bring these to her office visit for review. PRISCILLA Carey * Daniela Mroelos LPN - 03/18/2024 1:24 PM EDT 22w3d Denies vaginal bleeding/rom + movement No new concerns documented in this encounter Plan of Treatment Upcoming Encounters Date Type Department Care Team (Late st Contact Info) Description 03/19/2024 8:00 AM EDT Telemedicine Nutrition, [facility] [address] [place] [address] Madison Mason RDN [address] [place] [address] 04/08/2024 1:45 PM EDT Office Visit Hotel And Dining Room Cashier Obstetrics Maternal Medicine, [address] [address] Eleazar Iverson MD [facility] [place] [address] 04/08/2024 1:45 PM EDT Imaging Radiology [place] [address] [place] [address] 04/14/2024 8:00 AM EDT Office Visit Gynecology/Obstetrics [facility] [address] [place] [address] Collette Cervantes CRNP [address] [place] [address] 05/06/2024 2:30 PM EDT Office Visit Hotel And Dining Room Cashier Obstetrics Maternal Medicine, [address] [address] Eleazar Iverson MD [facility] [place] [address] 05/06/2024 2:30 PM EDT Imaging Radiology [place] [address] [place] [address] 05/28/2024 2:30 PM EDT Imaging Maternal Medicine Imaging, [address] [phone] Scheduled Orders Name Type Priority Associated Diagnoses Orde r Schedule CBC WITH WBC DIFFERENTIAL AND ANEMIA REFLEX WORKUP Lab Routine Supervision of high risk in second trimester Expected: 04/18/2024 (Approximate), Expires: 03/18/2025 SYPHILIS ANTIBODY SCREEN WITH REFLEX TO RPR Lab Routine Supervision of high risk in second trimester Expected: 04/18/2024 (Approximate), Expires: 03/18/2025 TSH WITH FREE T4 IF INDICATED Lab Routine Hypothyroidism affecting in second trimester Expected: 04/18/2024 (Approximate), Expires: 03/18/2025 Health Maintenance Due Date Last Done Comments Hepatitis B (1 of 3 - 19+ 3-dose series) 2009 HPV/Co-Test 2020 Depression Screening 09/20/2021 09/20/2020 COVID-19 Vaccine ( - 2022- season) 2023 Cervical Cancer Screening 09/22/2023 Pap [...] complication documented in this encounter Care Teams Tailer In Relationship Specialty Start Date End Date Maldonado Latif CRNP [address] [address] PCP - General Nurse Practitioner 03/10/21 documented as of this encounter
--- OUTSIDE RECORDS SUMMARY | 2024-07-15 07:10 | External Medical Summary | Summary of Care ---
Author Name Unknown Organization [facility] Address [address] [place] [address] Phone [phone] Care Team Providers Care Freight Shipping Agent Name Role Phone Maldonado Latif Primary Care Provider Reason for Visit * Reason Comments Ultrasound Encounter Details Date Type Department Care Team (Late st Contact Info) Description 03/03/2024 8:30 AM EDT Office Visit Handhole Machine Operator Obstetrics [facility], [place] [address], [place] [id number] Dionna Murray, [address] [place] [address] Previous gastric bypass affecting , antepartum*; Obesity in , antepartum; Hypothyroidism affecting in second trimester; 20 weeks gestation of ; Encounter for anatomic survey; Other specified related conditions, second trimester Allergies No known active allergiesdocumented as of this encounter (statuses as of 03/03/2024) Medications Medication Sig Dispensed Refills Start Date End Date Status Pediatric Bpcxgtbn-Zapmkwxf-D ([place] COMPLETE) CHEW Take 1 Tab by mouth 2 times a day. 0 Active Levothyroxine Sodium 25 MCG Oral Tablet (Levo-T) Pt taking 125 mcg 0 07/12/2020 Active Vitamin D3 1.25 MG (32092 UT) Oral Capsule Take 1 Capsule by mouth once a week. 0 12/17/2023 Active Gummies 0.18-25 MG Oral Tablet Chewable Take by mouth. 0 Active documented as of this encounter (statuses as of 03/03/2024) Active Problems Problem Noted Date Diagnosed Date [...] gastric bypass at [facility] on May 19, 2009. Last seen by [...] -Vitamin D 800 IU daily -Calcium citrate 9948-9371 mg daily (better absorbed than calcium carbonate) [...] as of this encounter (statuses as of 03/03/2024) Resolved Problems Problem Noted Date Diagnosed Date [...] as of this encounter (statuses as of 03/03/2024) Immunizations Name Administration Dates Next Due HPV [...] money to get more. Never true 02/06/2024 [place] Depression Scale Answer Date Recorded [place] Depression Scale Total 0 12/23/2023 The thought [...] this encounter Progress Notes * Dionna Murray, - 03/03/2024 10:07 AM EDT MATERNAL MEDICINE VISIT Blanca Simms presented today at 20w2d for an ultrasound and follow-up of her high risk . She was seen for the following indications: Problem List Items Addressed This Visit Obesity in , antepartum Low risk quad screen result appreciated as well as early 1'GTT (low). Plan of care reviewed; will schedule serial growth assessments q4-6 weeks. Due to h/o bariatric surgery, suggest FSBS x 7 days in lieu of repeat 1'GTT in the third trimester. Hypothyroidism affecting TSH Results: Lab Results Component Value Date/Time [...] of levothyroxine. Previous gastric bypass affecting , antepartum - Primary Other Visit Diagnoses 20 weeks gestation of Encounter for anatomic survey We reviewed today's ultrasound findings. Normal growth with no evidence of structural abnormalities, however exam suboptimal dueto maternal habitus and position. (For full details, please refer to ultrasound report provided separately). Ms. Simms's questions were answered to her satisfaction. She was advised to contact our office or herOB provider for any additional questions regarding her . RECOMMENDATIONS: Recommend follow up ultrasound with MFM in 4 weeks for growth and to complete anatomy survey secondary to above indications. Thank you for allowing us to participate in the care of this patient. Please call with any questions. Dionna Murray DO 03/03/2024 10:07 AM documented in this encounter Miscellaneous Notes * Assessment & Plan Note - Dionna Murray DO - 03/03/2024 9:09 AM EDT Associated Problem(s): Obesity in , antepartum Low risk quad screen result appreciated as well as early 1'GTT (low). Plan of care reviewed; will schedule serial growth assessments q4-6 weeks. Due to h/o bariatric surgery, suggest FSBS x 7 days in lieu of repeat 1'GTT in the third trimester. * Assessment & Plan Note - Dionna Murray DO - 03/03/2024 9:08 AM EDT Associated Problem(s): Hypothyroidism affecting TSH Results: Lab Results Component Value Date/Time [...] good control on current dose of levothyroxine. documented in this encounter Plan of Treatment Upcoming Encounters Date Type Department Care Team (Late st Contact Info) Description 03/18/2024 1:30 PM EDT Office Visit Gynecology/Obstetrics [facility] [address] [place] [address] Margaret Uribe CRNP [address] [place] [address] 03/19/2024 8:00 AM EDT Telemedicine [facility] [address] [place] [address] Madison Mason RDN [address] [place] [address] 04/03/2024 9:15 AM EDT Office Visit Handhole Machine Operator Obstetrics Maternal [facility], [place] [address] [place] [address] Carlos Faria DO [address] [place] [facility] [place] [address] 04/03/2024 9:15 AM EDT [facility] [place] [address] [facility] [place] [address] 04/30/2024 11:30 AM EDT Office Visit Handhole Machine Operator Obstetrics [facility], [place] [address] [place] [address] Carlos Faria, [address] [place] [address] 04/30/2024 11:30 AM EDT Imaging [facility] [place] [address] [place] [address] 05/28/2024 2:30 PM EDT Imaging Maternal Medicine [facility] [address] [facility] [phone] Scheduled Orders Name Type Priority Associated Diagnoses Orde r Schedule MFM US PREG FOLLOW UP EACH FETUS Medical Imaging Routine Previous gastric bypass affecting , antepartum Obesity in , antepartum Hypothyroidism affecting in second trimester 20 weeks gestation of Encounter for anatomic survey Other specified related conditions, second trimester 6 Occurrences starting 03/03/2024 until 07/19/2024 Health Maintenance Due Date Last Done Comments [...] or complication Hypothyroidism affecting in second trimester 20 weeks gestation of state, incidental Encounter for anatomic survey Other specified related conditions, second trimester documented in this encounter Care Teams Freight Shipping Agent Relationship Specialty Start Date End Date Maldonado Latif CRNP [address] [facility] [address] [place] [address] PCP - General Nurse Practitioner 03/10/21 documented as of this encounter
--- OUTSIDE RECORDS SUMMARY | 2024-07-15 07:10 | External Medical Summary | Summary of Care ---
Author Name Unknown Organization [facility] Address [address] [place] [address] Phone [phone] Care Team Providers Care Delivery Architect Name Role Phone Maldonado Latif Primary Care Provider Reason for Referral * Evaluate & Treat - Unlimited Visits (Within 10 days (routine)) - Pending Review Specialty Diagnoses / Procedures Referred By Mckay quevedo Referred To Contact Dietitian / Nutrition Services Diagnoses Obesity in , antepartum Previous gastric bypass affecting , antepartum Kenia Fregoso CNM [address] [place] [address] Referral ID Status Reason Start Date Expiration Date Visits Requested Visits Authorized [id number] Pending Review Specialty Services Required 01/23/[phone] Question Answer Referral Priority Within 10 days (routine) Where should this appointment be scheduled? [facility] What condition is the patient being seen for? All other conditions Other: Other: Use Comment Box Comments Medical Nutrition Therapy - history of gastic bypass surgery, currently Reason for Visit * Reason Comments Return Visit Encounter Details Date Type Department Care Team (Late st Contact Info) Description 01/20/2024 1:45 PM EDT Office [facility] [address] [facility] [place] [address] Kenia Fregoso CNM [address] [facility] [address] Supervision of high risk in first trimester*; Hypothyroidism affecting in second trimester; Previous gastric bypass affecting , antepartum; Previous delivery, antepartum condition or complication; Class 3 obesity (HCC) Allergies No known active allergiesdocumented as of this encounter (statuses as of 01/23/2024) Medications Medication Sig Dispensed Refills Start Date End Date Status Pediatric Dpsuhoqn-Yrnibxwf-O (FLINTSTONES COMPLETE) CHEW Take 1 Tab by mouth 2 times a day. 0 Active Levothyroxine Sodium 25 MCG Oral Tablet (Levo-T) Pt taking 125 mcg 0 07/12/2020 Active Vitamin D3 1.25 MG (65698 UT) Oral Capsule Take 1 Capsule by mouth once a week. 0 12/17/2023 Active Gummies 0.18-25 MG Oral Tablet Chewable Take by mouth. 0 Active documented as of this encounter (statuses as of 01/23/2024) Active Problems Problem Noted Date Diagnosed Date [...] baby Was seen in the past by [facility] Endocrinology (last visit 07/2020) Thyroid ultrasound [...] first trimester of . Refer back to [facility] if this occurs. She should continue to have growth assessments with MFM while she is clinically hypothyroid. If patient experiences thyroid goiter or nodule during , we recommend that she be referred to endocrinology for evaluation and management. is not a contraindication to fine needle aspiration but should be handled at the discretion of the automatic nailing machine feeder. If hypothyroidism is poorly controlled, consider weekly NSTs at 32 weeks. Previous gastric bypass affecting , ant epartum 12/23/2023 Overview: The patient is s/p laprascopic gastric bypass at [facility] on May 19, 2009. Last seen by [...] -Vitamin D 800 IU daily -Calcium citrate 0160-8680 mg daily (better absorbed than calcium carbonate) [...] as of this encounter (statuses as of 01/23/2024) Resolved Problems Problem Noted Date Diagnosed Date [...] as of this encounter (statuses as of 01/23/2024) Immunizations Name Administration Dates Next Due HPV [...] the money to buy more. Never true 12/02/19 24 Within the past 12 months, t he food you bought just didn't last and you didn't have money to get more. Never true 12/02/2023 [place] Depression Scale Answer Date Recorded [place] Depression Scale Total 0 12/23/2023 The thought [...] Sign Reading Time Taken Comments Blood Pressure 112/58 01/20/2024 1:34 PM EDT Pulse - - Temperature - - Respiratory Rate - - Oxygen Saturation - - Inhaled Oxygen Concentration - - Weight 120.7 kg (266 lb) 01/20/2024 1:34 PM EDT Height 157.5 cm (5' 2") 01/20/2024 1:34 PM EDT Body Mass Index 48.65 01/20/2024 1:34 PM EDT documented in this encounter Progress Notes * FregosoKenia stover CNM - 01/20/2024 1:53 PM EDT Blanca Simms is a 33 year old female here for her routine OB appointment at 14w1d Her Estimated Date of Delivery: 07/19/24 REVIEW OF SYSTEMS: She denies movement. Denies vaginal bleeding, LOF, contractions, headaches, vision changes, and RUQ pain. +Nausea, no vomiting. PHYSICAL EXAM: Filed Vitals: 01/20/24 1334 BP: 112/58 Weight: 120.7 kg (266 lb) Height: 1.575 m (5' 2") +FHT: cardiac activity visualized on unofficial bedside ultrasound, unable to hear via doppler ASSESSMENT/PLAN: (O99.282, E03.9) Hypothyroidism affecting in second trimester Plan: -Repeat TSH ordered to be done during the second trimester -Continue levothyroxine 25mcg daily (O99.840) Previous gastric bypass affecting , antepartum Plan: NUTRITION-CLINICAL DIETITIAN REFERRAL OP (O34.219) Previous delivery, antepartum condition or complication Plan: -Patient undecided about ERCS versus TOLAC (E66.01) Class 3 obesity (HCC) Plan: -1 hour GTT in progress today (O09.91) Supervision of high risk in first trimester (primary encounter diagnosis) Plan: TSH WITH FREE T4 IF INDICATED - discussed genetic screening. Patient declined Qnatal; consider Quadscreen at next visit - RTO in 4 weeks Kenia Fregoso CNM documented in this encounter Nursing Notes * July Fink LPN - 01/20/2024 1:41 PM EDT 14w1d Denies concerns Doing early gtt today documented in this encounter Plan of Treatment Upcoming Encounters Date Type Department Care Team (Late st Contact Info) Description 02/19/2024 4:15 PM EDT Office Visit Gynecology/Obstetrics [facility] [address] [place] [address] Kiah Morley, DNP, CNM [address] [facility] [place] [address] 03/03/2024 8:30 AM EDT Office Visit Family Practice Md Obstetrics [facility]aternal Medicine, [place] [address] [place] [address] Dionna uMrray, [address] [place] [address] 03/03/2024 8:30 AM EDT [facility] [place] [address], [place] [id number] Scheduled Referrals Name Type Priority Associated Diagnoses Orde r Schedule NUTRITION-CLINICAL DIETITIAN REFERRAL OP Referral Within 10 days (routine) Previous gastric bypass affecting , antepartum Ordered: 01/23/2024 Health Maintenance Due Date Last Done Comments Hepatitis B (1 of 3 - 19+ 3-dose series) 2009 HPV/Co-Test 2020 Depression Screening 09/20/2021 09/20/2020 COVID-19 Vaccine ( season) 2023 Influenza Vaccine (FLU shot) (#1) 2023 09/11/2018, 07/23/2016, 08/25/2014, Additional history exists Cervical Cancer Screening 09/22/2023 Pap Smear 09/22/2023 09/22/2020, 10/11, 10/18/2016, Additional history exists TSH 01/19/2025 01/20/2024, 12/12, [...] Not on filedocumented as of this encounter Results * TSH WITH FREE T4 IF INDICATED (01/20/2024 2:47 PM EDT) TSH 1.32 0.27 - 4.20 uIU/mL 01/21/2024 1:06 AM EDT LABORATORY GM Blood Venous blood specimen / Unknown Venipuncture / Unknown 01/20/2024 2:47 PM EDT 01/20/2024 2:47 PM EDT Kenia Fregoso CNM LAB BLOOD ORDERABLES LABORATORY [facility] [address] [place] [address] documented in this encounter Visit Diagnoses Diagnosis Supervision of high risk in first trimester- Primary Unspecified high-risk Hypothyroidism affecting in second trimester Previous gastric bypass affecting , antepartum Previous delivery, antepartum condition or complication Class 3 obesity (HCC) documented in this encounter Care Teams Delivery Architect Relationship Specialty Start Date End Date Maldonado Latif CRNP [address] [facility] [address] [place] [address] PCP - General Nurse Practitioner 03/10/21 documented as of this encounter
--- OUTSIDE RECORDS SUMMARY | 2024-07-15 07:10 | External Medical Summary | Summary of Care ---
Author Name Unknown Organization [facility] Address [address] [place] [address] Phone [phone] Care Team Providers Care Lead Javascript Developer Name Role Phone Maldonado Latif Primary Care Provider Reason for Visit * Reason Comments Medical Nutrition Therapy * Evaluate & Treat - Unlimited Visits (Within 10 days (routine)) - Pending Review Specialty Diagnoses / Procedures Referred By Mckay quevedo Referred To Contact Dietitian / Nutrition Services Diagnoses Obesity in , antepartum Previous gastric bypass affecting , antepartum Kneia Fregoso, [address] [place] [address] Referral ID Status Reason Start Date Expiration Date Visits Requested Visits Authorized [id number] Pending Review Specialty Services Required 01/23/[phone] Encounter Details Date Type Department Care Team (Late st Contact Info) Description 03/19/2024 8:00 AM EDT Telemedicine [facility] [address] [place] [address] Madison Mason RDN [address] [place] [address] Obesity in , antepartum*; Supervision of high risk in first trimester; Previous gastric bypass affecting , antepartum; Previous delivery, antepartum condition or complication Allergies No known active allergiesdocumented as of this encounter (statuses as of 03/19/2024) Medications Medication Sig Dispensed Refills Start Date End Date Status Pediatric Wmtwsjhl-Iispyrii-R (FLINTSTONES COMPLETE) CHEW Take 1 Tab by mouth 2 times a day. 0 Active Levothyroxine Sodium 25 MCG Oral Tablet (Levo-T) Pt taking 125 mcg 0 07/12/2020 Active Vitamin D3 1.25 MG (05730 UT) Oral Capsule Take 1 Capsule by [...] and dinner) 1 Kit 0 03/18/2024 Active GemPhonesTouch Verio In Vitro Strip (Glucose Blood)Indications:Sup ervision of high risk in second trimester,Previous gastric bypass affecting , antepartum Use to test blood sugars 4 times daily (fasting, 1 hour after breakfast, lunch, and dinner) 125 Strip 6 03/18/2024 Active GemPhonesTouch Delica Lancets 30GIndications:Superv ision of high risk in second trimester,Previous gastric bypass affecting , antepartum Use to test blood sugars 4 times daily (fasting, 1 hour after breakfast, lunch, and dinner) 200 Each 6 03/18/2024 Active documented as of this encounter (statuses as of 03/19/2024) Active Problems Problem Noted Date Diagnosed Date with 11 completed weeks gestation 12/13 Supervision of high risk in [facility] trim [place] 12/23/2023 Obesity in , antepartum [...] seen in the past by [facility] Endocrinology (last visit 07/2020) Thyroid ultrasound [...] -Vitamin D 800 IU daily -Calcium citrate 4364-4565 mg daily (better absorbed than calcium carbonate) [...] as of this encounter (statuses as of 03/19/2024) Resolved Problems Problem Noted Date Diagnosed Date Resolved Date Iron deficiency anemia secdavid luz maria to inadequate dietary iron intake [...] as of this encounter (statuses as of 03/19/2024) Immunizations Name Administration Dates Next Due HPV [...] money to get more. Never true 02/06/2024 [place] Depression Scale Answer Date Recorded [place] Depression Scale Total 0 12/23/2023 The thought [...] * Patient Instructions* Madison Mason RDN - 03/19/2024 8:42 AM EDT Patient will include at least 3 servings of dairy daily most days of the week. See handout for other foods that contain calcium. Patient will aim for at least 2 servings of fruits daily and at least 2-3 servings of vegetables daily. Patient will review nutrition labels for total fat and aim for 10% of daily value for fat for most food choices. documented in this encounter Progress Notes * Madison Mason RDN - 03/19/2024 8:01 AM EDT NUTRITION CONSULT - OUTPATIENT [facility] Name: Blanca [facility]: 03[facility] Time: 8:02 AM Patient was identified by name and date. Patient location: HOME. I was not in a hospital or clinic location. After connecting through [email or web address], patient was verified with two unique identifiers. Patient (or authorized legal corporate representative) was then informed that this was a Telemedicine visit and being conducted confidentially over secure lines. Methods to assure confidentiality were taken. Patient acknowledged consent and understanding of privacy and security of the Telemedicine visit. The patient agreed to participate. Reason for Referral: obesity in NUTRITION ASSESSMENT: Client History Patient is a 33 year old female being seen for above issue. She has a history of gastric bypass. Support System: Spouse Barriers To Learning: None Special Education Needs: None Food/Nutrition-Related History Describes typical diet history/24 hr recall Breakfast: banana or toast with spray butter or PB or eggs and sausage or bagel with spray butter or PB, sometimes coffee with cream or milk and Splenda, water Snacks: sometimes a granola bar if not eating breakfast Lunch: noon salad with leftover meat with carrots, cheese, cucumbers with ranch or Kuwaiti dressingor chicken salad sandwich and sometimes a mini orange or small apple or leftovers, water Snacks: sometimes granola bar or fruit or carrots with ranch dressing Dinner: roast, noodles, carrots or grilled chicken, vegetables-California blend- cauliflower, carrots, & broccoli mix, potato or chicken alondra or pizza, water Snacks: none Drinks: water, coffee in AM, occasional sweetened iced tea 32 ounces-filles Yetti cup 5 times during the day Restaurant meals: once a week Alcohol: None Tobacco Use: No Diet Recall/Food Logs Indicate: AREAS FOR IMPROVEMENT: Inadequate calcium intake POSITIVE: Low fat and/or low sugar selections Uses calorie free beverages Good meal distribution Adequate fruit and vegetable intake Adequate fluid intake Food and Nutrient Intake and other pertinent information: Patient states her food choices tend to vary depending on what she is hungry for. She does the cooking and shopping. She does choose whole grains but admits to not eating many servings of dairy. She notes a history of anemia and needing ironinfusions during the latter part of a previous . She denies GI issues at this time in her . Notes tolerance of food does tend to vary from day to day. Admits to experiencing some nausea in early part of her . Food allergies and/or food intolerances: none Pertinent Medications (Current): Current Outpatient Medications Medication Sig Dispense Refill Pediatric Kqupbvpp-Hqlppkex-F (FLINTSTONES COMPLETE) CHEW Take 1 Tab by mouth 2 times a day. Levothyroxine Sodium 25 MCG Oral Tablet (Levo-T) Pt taking 125 mcg Vitamin D3 1.25 MG (94888 UT) Oral Capsule Take 1 Capsule by mouth once a week. Gummies 0.18-25 MG Oral Tablet Chewable Take by mouth. [employer] Verio Flex System w/Device Kit Use to test blood sugars 4 times daily for 7 days, between 26-28 weeks. (fasting, 1 hour after breakfast, lunch, and dinner) 1 Kit 0 OneTouch Verio In Vitro Strip (Glucose Blood) Use to test blood sugars 4 times daily (fasting, 1 hour after breakfast, lunch, and dinner) 125 Strip 6 GemPhonesTouch Delica Lancets 30G Use to test blood sugars 4 times daily (fasting, 1 hour after breakfast, lunch, and dinner) 200 Each 6 No current facility-administered medications for this visit. Patient states she did not tolerate OGTT during 14 weeks. States meter and testing supplies will beused between weeks 26-28 weeks. States OB provided will determine if glucose meter testing will be required after that. Supplements: Children's chewable multivitamin, vitamin, and Vitamin D3 Prior Nutrition Counseling: [facility] Physical Activity: walking daily in the evening when weather is favorable, 30-60 hours Anthropometric Measurements LMP 10/02/2023 (Approximate) Wt Readings from Last 5 Encounters: 03/18/24 122.9 kg (271 lb) 02/19/24 122 kg (269 lb) 01/20/24 120.7 kg (266 lb) 12/23/23 121.1 kg (267 lb) 03/15/21 127.5 kg (281 lb) Weight Change: increased by 4 pounds since start of per pt report BMI: BMI Readings from Last 1 Encounters: 03/18/24 49.57 kg/m Nutrition-Focused Physical Findings Deferred due to telemedicine visit Biochemical Data, Medical Tests, and Procedures Latest Reference Range & Units 01/20/24 14:47 50-g Gestational Glucose, 1 Hour 70 - 129 mg/dL 55 (L) (L): Data is abnormally low Latest Reference Range & Units 12/23/23 10:21 HGB 12.0 - 15.3 g/dL 11.8 (L) HCT 36.0 - 45.2 % 35.9 (L) (L): Data is abnormally low Patient states she will be having another OGTT between 26-28 weeks. Also notes a previous history of anemia during a previous . States CBC to be redone in 4 weeks. NUTRITION DIAGNOSIS Increased nutrient needs for protein, energy, and select micronutrients related to as evidenced by catabolic condition. Overweight/obesity related to presumed previous excessive energy intake compared to estimated needsas evidenced by BMI of 49.57 NUTRITION INTERVENTION: NUTRITION EDUCATION Initial/brief nutrition education NUTRITION COUNSELING Strategies Other Education Material: Healthy information These materials will be mailed and/or portal messaged to the participant. Nutrition Prescription: Diet: Good Nutrition Daily Calorie Needs: 1465-6384 Kcals Daily Protein Needs: 70-75 Grams protein Goals: Patient will include at least 3 servings of dairy daily most days of the week. See handout for other foods that contain calcium. Patient will aim for at least 2 servings of fruits daily and at least 2-3 servings of vegetables daily. Patient will review nutrition labels for total fat and aim for 10% of daily value for fat for most food choices. Dietitian Action: Encouraged patient to aim for 3 servings of high-calcium foods daily. Encouraged her to aim for at least 2 servings of fruits and 2 servings of vegetables daily. Encouraged her to review nutrition labels for calcium and fat content. Encouraged her to choose foods with 20% daily value of calcium-at least 3 daily; and 10% or less of daily value for fat for most of her food choices. Discussed consuming a high vitamin C food with red meat to help increase absorption of iron. Patient states she does not drink sweetened beverages or eat many sweets. Encouraged her to continue withcurrent meal pattern. Recommendations to Ordering Provider: Continue current plan of nutrition care. NUTRITION MONITORING AND EVALUATION: The following will be monitored and evaluated at the next visit: Monitor weight. Monitor goals and progress. Plan:Patient scheduled to return in 6 weeks; Encouraged pt to contact me via My G if any questions or concerns arise. 45 minutes Medical Nutrition Therapy 15 min (8-22 min) 30 min (23-37 min) 45 min (38-52 min) 60 min (53-67 min) 75 min (68-82 min) 90 min (83-97 min) 105 min (98-113 min) Time In: 0801 (03/19/24 0900) Time Out: 08 (03/19/24899) Madison Mason RD[facility] documented in this encounter Plan of Treatment Upcoming Encounters Date Type Department Care Team (Late st Contact Info) Description 04/08/2024 1:45 PM EDT Office Visit Blister Pack Operator Obstetrics Maternal Medicine, [place] [address] [place] [address] Eleazar Iverson MD [address] [place] [address] 04/08/2024 1:45 PM EDT Imaging Radiology [place] [address] [place] [address] 04/14/2024 8:00 AM EDT Office Visit Gynecology/Obstetrics [facility] [address] [place] [address] Collette Cervantes CRNP [address] [facility] [place] [address] 05/06/2024 2:30 PM EDT Office Visit Blister Pack Operator Obstetrics Maternal Medicine, [place] [address] [place] [address] Eleazar Iverson MD [address] [place] [address] 05/06/2024 2:30 PM EDT Imaging Radiology [place] [address] [place] [address] 05/28/2024 2:30 PM EDT Imaging Maternal Medicine Imaging, [facility] [address] [place] [address] Scheduled Referrals Name Type Priority Associated [...] complication documented in this encounter Care Teams Lead Javascript Developer Relationship Specialty Start Date End Date Maldonado Latif CRNP [address] [address] PCP - General Nurse Practitioner 03/10/21 documented as of this encounter
--- OUTSIDE RECORDS SUMMARY | 2024-07-15 07:10 | External Medical Summary | Summary of Care ---
Author Name Unknown Organization [facility] Address [address] [place] [address] Phone [phone] Care Team Providers Care Dough Panner Name Role Phone Maldonado Latif Primary Care Provider Encounter Details Date Type Department Care Team (Late st Contact Info) Description 03/02/2024 Telephone Gynecology/Obstetrics [facility] [address] [facility] [address] Kiah Morley, DNP, CNM [address] [place] [address] Allergies No known active allergiesdocumented as of this encounter (statuses as of 03/02/2024) Medications Medication Sig Dispensed Refills Start Date End Date Status Pediatric Hyulzodz-Ttbxvdcz-R (FLINTSTONES COMPLETE) CHEW Take 1 Tab by mouth 2 times a day. 0 Active Levothyroxine Sodium 25 MCG Oral Tablet (Levo-T) Pt taking 125 mcg 0 07/12/2020 Active Vitamin D3 1.25 MG (40080 UT) Oral Capsule Take 1 Capsule by mouth once a week. 0 12/17/2023 Active Gummies 0.18-25 MG Oral Tablet Chewable Take by mouth. 0 Active documented as of this encounter (statuses as of 03/02/2024) Active Problems Problem Noted Date Diagnosed Date [...] baby Was seen in the past by [facility] (last visit 07/2020) Thyroid ultrasound [...] be handled at the discretion of the mysql developer. If hypothyroidism is poorly controlled, consider weekly NSTs at 32 weeks. Previous gastric bypass affecting , ant epartum 12/23/2023 Overview: The patient is s/p laprascopic gastric bypass at [facility] on May 19, 2009. Last seen [...] -Vitamin D 800 IU daily -Calcium citrate 4262-2362 mg daily (better absorbed than calcium carbonate) [...] as of this encounter (statuses as of 03/02/2024) Resolved Problems Problem Noted Date Diagnosed Date [...] as of this encounter (statuses as of 03/02/2024) Immunizations Name Administration Dates Next Due HPV [...] money to get more. Never true 02/06/2024 [place] Depression Scale Answer Date Recorded [place] Depression Scale Total 0 12/23/2023 The thought [...] Telephone Encounter - Delmis Borrero LPN - 03/02/2024 8:27 AM EDT ----- Message from Kiah Morley DNP, CNChago sent at 03/02/2024 8:02 AM EDT ----- Please let pt know that her QUAD screen was: Screen negative for open NTD, DS and Trisomy 18. Thanks! documented in this encounter Plan of Treatment Upcoming Encounters Date Type Department Care Team (Late st Contact Info) Description 03/03/2024 8:30 AM EDT Office Visit Toeing Stockings Obstetrics Maternal Medicine, [place] [address] [place] [address] Dionna Murray [address] [place] [address] 03/03/2024 8:30 AM EDT [facility] [address] [place] [address] 03/18/2024 1:30 PM EDT Office Visit Gynecology/Obstetrics Cristino Mckeon [address] [place] [address] Margaret Uribe CRNP [address] [place] [address] 03/19/2024 8:00 AM EDT Telemedicine Nutrition, Roland Mckeon [address] [place] [address] Madison Mason Tari, RDN [address] [place] [address] Health Maintenance Due Date Last Done Comments [...] filedocumented as of this encounter Care Teams Dough Panner Relationship Specialty Start Date End Date Maldonado Latif CRNP [address] [facility] [address] [place] [address] PCP - General Nurse Practitioner 03/10/21 documented as of this encounter
--- OUTSIDE RECORDS SUMMARY | 2024-07-15 07:10 | External Medical Summary | Summary of Care ---
Author Name Unknown Organization [facility] Address [address] [place] [address] Phone [phone] Care Team Providers Care Plugger Worker Name Role Phone Maldonado Latif Primary Care Provider Reason for Visit * Reason Comments Ultrasound Encounter Details Date Type Department Care Team (Latest Contact Info) Description 04/08/2024 1:45 PM EDT Office Visit Mortgage Loan Assistant Obstetrics Maternal Medicine, [place] [address], [place] [id number] Eleazar Iverson MD [address] [place], [place] [id number] Hypothyroidism affecting in second trimester*; Previous gastric bypass affecting , antepartum; Intestinal postoperative nonabsorption; Obesity in , antepartum Allergies No known active allergiesdocumented as of this encounter (statuses as of 04/08/2024) Medications Medication Sig Dispensed Refills Start Date End Date Status Pediatric Pbpoyzkn-Gnmveszv-O (FLINTSTONES COMPLETE) CHEW Take 1 Tab by mouth 2 times a day. Active Levothyroxine Sodium 25 MCG Oral Tablet (Levo-T) Pt taking 125 mcg 07/12/2020 Active Vitamin D3 1.25 MG (72379 UT) Oral Capsule Take 1 Capsule by mouth once a week. 12/17/2023 Active Gummies 0.18-25 MG Oral Tablet Chewable Take by mouth. Activ e [employer]SocietyTouch [employer]roid[employer].netio Flex System w/Device KitIndications:Superv ision of high risk in second trimester,Previous gastric bypass affecting , antepartum Use to test blood sugars 4 times daily for 7 days, between 26-28 weeks. (fasting, 1 hour after breakfast, lunch, and dinner) 1 Kit 03/18/2024 Active [employer]SocietyTouch Verio In Vitro Strip (Glucose Blood)Indications:Sup ervision of high risk in second trimester,Previous gastric bypass affecting , antepartum Use to test blood sugars 4 times daily (fasting, 1 hour after breakfast, lunch, and dinner) 125 Strip 6 03/18/2024 Active [employer]SocietyTouch Delica Lancets 30GIndications:Superv ision of high risk in second trimester,Previous gastric bypass affecting , antepartum Use to test blood sugars 4 times daily (fasting, 1 hour after breakfast, lunch, and dinner) 200 Each 6 03/18/2024 Active documented as of this encounter (statuses as of 04/08/2024) Active Problems Problem Noted Date Diagnosed Date [...] baby Was seen in the past by [facility] Endocrinology (last visit 07/2020) Thyroid ultrasound [...] -Vitamin D 800 IU daily -Calcium citrate 2615-9149 mg daily (better absorbed than calcium carbonate) [...] as of this encounter (statuses as of 04/08/2024) Resolved Problems Problem Noted Date Diagnosed Date [...] as of this encounter (statuses as of 04/08/2024) Immunizations Name Administration Dates Next Due HPV [...] money to get more. Never true 02/06/2024 [place] Depression Scale Answer Date Recorded [place] Depression Scale Total 0 12/23/2023 The thought [...] Progress Notes * Eleazar Iverson MD - 04/08/2024 1:49 PM EDT MATERNAL MEDICINE VISIT Blanca Simms is at 25w3d who presents to [facility] for an ultrasound and follow-up of her high risk . The patient is currently 25 weeks and 3 days gestation with class 3 obesity, hypothyroidism and sheis status post gastric bypass surgery. She comes in for an evaluation of growth. s She is being seen today by Maternal- Medicine for the following reasons: Problem List Items Addressed This Visit Intestinal postoperative nonabsorption Obesity in , antepartum I reviewed the ultrasound. The overall estimated weight is consistent with the 31st percentile for the gestational age and the anatomy that was visualized appears unremarkable. The amniotic fluid volume is normal at 19 cm and the fetus is in the transverse presentation. Hypothyroidism affecting - Primary Previous gastric bypass affecting , antepartum RECOMMENDATIONS: Recommend surveillance starting at 34 weeks secondary to class 3 obesity. Recommend follow up ultrasound with [facility] in 4 weeks for growth secondary to class 3 obesity. Recommend delivery at 39 weeks gestation. Thank you for allowing us to participate in the care of this patient. Please call with any questions. Eleazar Iverson MD 04/08/2024 1:49 PM documented in this encounter Miscellaneous Notes * Assessment & Plan Note - Eleazar Iverson MD - 04/08/2024 2:09 PM EDT Associated Problem(s): Obesity in , antepartum I reviewed the ultrasound. The overall estimated weight is consistent with the 31st percentile for the gestational age and the anatomy that was visualized appears unremarkable. The amniotic fluid volume is normal at 19 cm and the fetus is in the transverse presentation. documented in this encounter Plan of Treatment Upcoming Encounters Date Type Department Care Team (Late st Contact Info) Description 04/14/2024 8:00 AM EDT Office Visit Gynecology/Obstetrics Cristino Mckeon [address] [place] [address] Collette Cervantes CRNP [address] [place] [address] 05/05/2024 8:30 AM EDT Telemedicine Nutrition, Roland Polancos [address] [facility] [place] [address] Madison Mason, MARY KAYN [address] [place] [address] 05/06/2024 2:30 PM EDT Office Visit Mortgage Loan Assistant Obstetrics Maternal Medicine, [place] [address] [place] [address] Eleazar Iverson MD [address] [place] [address] 05/06/2024 2:30 PM EDT Imaging Radiology [facility] [address] [place] [address] 05/28/2024 2:30 PM EDT Imaging Maternal Medicine Imaging, Roland [facility]ke[facility] [place] [address] Health Maintenance Due Date Last Done [...] encounter Visit Diagnoses Diagnosis Hypothyroidism affecting in second trimester- Primary Previous gastric bypass affecting , antepartum 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
--- OUTSIDE RECORDS SUMMARY | 2024-07-15 07:10 | External Medical Summary ---
Author Name Unknown Address Unknown Organization : Laboratory Report Ordering Provider Test Date Status CAPRICE PEACE 02/19/2024 16:34:20 Final Observation Date Value Abnormality Reference (Units ) Status INTERPRETATION 02/19/2024 16:34:20 SEE BELOW Final Screen negative for open NTD , DS and Trisomy 18. RISK FOR ONTD 02/19/2024 16:34:20 1:4608 Final AGE RISK DOWN SYNDROME 02/19/2024 16:34:20 1:392 Final DANE DOWN SYNDROME RISK 02/19/2024 16:34:20 <1:5000 <1:270 Final DANE TRISOMY 18 RISK 02/19/2024 16:34:20 <1:5000 <1:100 Final CALC'D GESTATIONAL AGE 0402/19/2024 16:34:20 18.4 Final AFP, SERUM 02/19/2024 16:34:20 43.4 (ng/mL) Final AFP MOM 02/19/2024 16:34:20 1.31 Final Reference Range:
<2.50< br/> IDD <1.90
TWINS <4.00
TWINS IDD <3.50
TRIPLETS <4.50 HCG, SERUM 02/19/2024 16:34:20 27.8 (IU/mL) Final HCG MOM 02/19/2024 16:34:20 1.67 Final ESTRIOL, FREE 02/19/2024 16:34:20 1.72 (ng/mL ) Final ESTRIOL MOM 02/19/2024 16:34:20 1.33 Final INHIBIN A, DIMERIC 02/19/2024 16:34:20 138 ( pg/mL) Final INHIBIN A MOM 02/19/2024 16:34:20 1.17 Final Performance of maternal seru m AFP, HCG, estriol,
and dimeric inhibin A provides a useful screening
test for detection of open neural tube defects and
some chromosomal abnormalities. It should be
noted that normal results can never guarantee the
of a normal baby and that 2 to 3 percent of
newborns have some type of physical or mental
defect, many of which are undetectable through any
known diagnostic technique.
This is a screening test, not a diagnostic test.
This risk assessment is based on demographic data
provided by the ordering physician. Please notify
the laboratory promptly if any data are incorrect.
It has been observed that patients who smoke
cigarettes during may have a slightly
increased risk of having a false positive DANE
screen for Down Syndrome or trisomy 18.
It has been observed that patients whose
is the result of IVF may have a slightly increased
risk of having a false positive DANE screen for
Down syndrome or trisomy 18.
If you have questions concerning this report:
For Clinical Consultation call [phone]
([phone])
For Technical/Recalculations call ,
ext. [phone]; FAX [phone]
Interpretive Cutoffs
Screen Positive for Open NTD:
> or = 2.50 adjusted MOM
> or = 1.90 adjusted MOM for insulin-
dependent Diabetics
> or = 4.00 adjusted MOM for twins
> or = 3.50 adjusted MOM for twins insulin-
dependent diabetics
> or = 4.50 adjusted MOM for triplets
Screen Positive for Down Syndrome:
'DANE Down Syndrome Risk' that equals or
exceeds 1 in 270
Screen Positive for Trisomy 18:
'DANE Trisomy 18 Risk' that equals or exceeds
1 in 100
For additional information, please refer to
http://education.[employer]/faq/FAQ97
(This link is being provided for
informational/educational purposes only.) DATE OF 02/19/2024 16:34:20 1990 Final COLLECTION DATE 02/19/2024 16:34:20 02/19/2024 Final MATERNAL WEIGHT 02/19/2024 16:34:20 268 (lbs ) Final EST'D DATE OF DELIVERY 02/19/2024 16:34:20 07/19/2024 Final ALEISHA DETERMINED BY 02/19/2024 16:34:20 LMP Final MOTHER'S ETHNIC ORIGIN 02/19/2024 16:34:20 WHITE Final NUMBER OF FETUSES 02/19/2024 16:34:20 1 Final INSULIN DEPEND DIABETIC 02/19/2024 16:34:20 NO Final REPEAT SPECIMEN 02/19/2024 16:34:20 NO Final HX OF NEURAL TUBE DEFECTS 02/19/2024 16:34:20 NO Final PREV DOWN SYND 02/19/2024 16:34:20 NO Final DONOR EGG 02/19/2024 16:34:20 NO Final DONOR AGE: EGG RETRIEVAL 02/19/2024 16:34:20 NOT GIVEN Final CIGARETTE SMOKER 02/19/2024 16:34:20 NO Final RESULT OF IVF? 02/19/2024 16:34:20 NO Final Test performed by [facility]
[address],
[place] [address]

Dumping Machine Operator: Rhona Lombardo MD,PHD,DANIEL
[facility] by [facility],
[facility],
[address] [place], [place]
Luciano Calderon M.D., Ph.D., Director of Laboratories
, [place] [id number] Performing Location
--- OUTSIDE RECORDS SUMMARY | 2024-07-15 07:10 | External Medical Summary | Summary of Care ---
Author Name Unknown Organization [facility] Address [address] [place] [address] Phone [phone] Care Team Providers Care Ancient Art Curator Name Role Phone Maldonado Latif Primary Care Provider Reason for Visit * Reason Onset Date Comments Medical Nutrition Therapy 03/27/2024 Encounter Details Date Type Department Care Team (Late st Contact Info) Description 03/27/2024 9:00 AM EDT Scheduled Telephone Roland Genao [address] [place] [address] Madison Mason, MALIK [address] [place] [id number] Allergies No known active allergiesdocumented as of this encounter (statuses as of 03/27/2024) Medications Medication Sig Dispensed Refills Start Date End Date Status Pediatric Dwdkylsg-Fqvfqqch-Q (FLINTSTONES COMPLETE) CHEW Take 1 Tab by mouth 2 times a day. 0 Active Levothyroxine Sodium 25 MCG Oral Tablet (Levo-T) Pt taking 125 mcg 0 07/12/2020 Active Vitamin D3 1.25 MG (24609 UT) Oral Capsule Take 1 Capsule by mouth once a week. 0 12/17/2023 Active Gummies 0.18-25 MG Oral Tablet Chewable Take by mouth. 0 Activ e HaveMyShiftTouch Verio Flex System w/Device KitIndications:Superv ision of high risk in second trimester,Previous gastric bypass affecting , antepartum Use to test blood sugars 4 times daily for 7 days, between 26-28 weeks. (fasting, 1 hour after breakfast, lunch, and dinner) 1 Kit 0 03/18/2024 Active Wee Web In Vitro Strip (Glucose Blood)Indications:Sup ervision of high risk in second trimester,Previous gastric bypass affecting , antepartum Use to test blood sugars 4 times daily (fasting, 1 hour after breakfast, lunch, and dinner) 125 Strip 6 03/18/2024 Active [employer] DelCMOSIS nv Lancets 30GIndications:Superv ision of high risk in second trimester,Previous gastric bypass affecting , antepartum Use to test blood sugars 4 times daily (fasting, 1 hour after breakfast, lunch, and dinner) 200 Each 6 03/18/2024 Active documented as of this encounter (statuses as of 03/27/2024) Active Problems Problem Noted Date Diagnosed Date with 11 completed weeks gestation 12/13 Supervision of high risk in [facility] 12/23/2023 Obesity in , antepartum 12/23/2023 [...] baby Was seen in the past by [facility] (last visit 07/2020) Thyroid ultrasound reveal [...] laprascopic gastric bypass at [facility] on May 19, 2009. Last [...] -Vitamin D 800 IU daily -Calcium citrate 1251-2481 mg daily (better absorbed than calcium carbonate) [...] as of this encounter (statuses as of 03/27/2024) Resolved Problems Problem Noted Date Diagnosed Date Resolved Date Iron deficiency anemia freddy fountainy to inadequate dietary iron intake 12/08/2018 [...] as of this encounter (statuses as of 03/27/2024) Immunizations Name Administration Dates Next Due HPV [...] money to get more. Never true 02/06/2024 Tilden Depression Scale Answer Date Recorded Tilden Depression Scale Total 0 12/23/2023 The thought [...] Telephone Encounter - Madison Mason RDN - 03/27/2024 3:15 PM EDT Attempted to contact pt to follow-up from initial video nutrition visit from March 19. Also remindedher of handouts forwarded to her following our visit via [employer]. Encouraged her to contact me if she has questions or concerns. Madison Mason RDN, Clinical Dietitian II, [facility] Clinical Nutrition Services [facility] [address] [place] [id number] Available via [employer] Portal documented in this encounter Plan of Treatment Upcoming Encounters Date Type Department Care Team (Late st Contact Info) Description 04/08/2024 1:45 PM EDT Office Visit Film Developer Obstetrics Maternal Medicine, [place] [address] [place] [address] Eleazar Iverson MD [facility] [place] [address] 04/08/2024 1:45 PM EDT Imaging Radiology [facility] [place], [place] [address] [place] [address] 04/14/2024 8:00 AM EDT Office Visit Gynecology/Obstetrics [facility] [address] [place] [address] Collette Cervantes CRNP [address] [place] [address] 05/05/2024 8:30 AM EDT [facility]medicine [facility], [facility] [address] [place] [address] Madison Mason RDN [address] [place] [address] 05/06/2024 2:30 PM EDT Office Visit Film Developer Obstetrics Maternal Medicine, [place] [address] [place] [address] Eleazar Iverson MD [address] [place] [address] 05/06/2024 2:30 PM EDT Imaging Radiology [facility] [place] [place] [address] [place] [facility] [place] [address] 05/28/2024 2:30 PM EDT Imaging Maternal Medicine Imaging, [facility] [address] [facility] [place] [address] Health Maintenance Due Date [...] filedocumented as of this encounter Care Teams Ancient Art Curator Relationship Specialty Start Date End Date Maldonado Latif CRNP [address] [facility] [address] [place] [address] PCP - General Nurse Practitioner 03/10/21 documented as of this encounter
--- OUTSIDE RECORDS SUMMARY | 2024-07-15 07:11 | External Medical Summary ---
Author Name Unknown Address Unknown Organization K01:[facility] [address] Laboratory Report Ordering Provider Test Date Status WOLF ROMO 01/20/2024 14:47:41 Final Observation Date Value Abnormality Reference (Units ) Status TSH 01/20/2024 14:47:41 1.32 0.27-4.20 (uIU/mL) Final Performing Location [facility] [place] [address] [facility] [address]
--- OUTSIDE RECORDS SUMMARY | 2024-07-15 07:11 | External Medical Summary | Summary of Care ---
Author Name Unknown Organization [facility] Address [address] [place] [address] Phone [phone] Care Team Providers Care Machine Sprayer Name Role Phone Maldonado Latif Primary Care Provider Reason for Referral * Evaluate & Treat - Unlimited Visits (Within 10 days (routine)) - Pending Review Specialty Diagnoses / Procedures Referred By Mckay quevedo Referred To Contact Dietitian / Nutrition Services Diagnoses Obesity in , antepartum Previous gastric bypass affecting , antepartum Kenia Fregoso CNM [address] [place] [address] Referral ID Status Reason Start Date Expiration Date Visits Requested Visits Authorized [id number] Pending Review Specialty Services Required 01/23/2024 999 [...] 1:45 PM EDT Office Visit [facility]necology/[facility]stetric s [facility] [place] [address] Kenia [facility]regoso CNM [address] [facility] [address] Supervision of high risk in first trimester*; Hypothyroidism affecting in second trimester; Previous gastric bypass affecting , antepartum; Previous delivery, antepartum condition or complication; Class 3 obesity (HCC) Allergies No known active allergiesdocumented as of this encounter (statuses as of 01/23/2024) Medications Medication Sig Dispensed Refills Start Date End Date Status Pediatric Bdvydzgk-Exbpxswt-Q (FLINTSTONES COMPLETE) CHEW Take 1 Tab by mouth 2 times a day. 0 Active Levothyroxine Sodium 25 MCG Oral Tablet (Levo-T) Pt taking 125 mcg 0 07/12/2020 Active Vitamin D3 1.25 MG (94387 UT) Oral Capsule Take 1 Capsule by [...] baby Was seen in the past by [facility] Endocrinology (last visit 07/2020) Thyroid ultrasound [...] first trimester of . Refer back to [facility] if this occurs. She should continue to have growth assessments with MFM while she is clinically hypothyroid. If patient experiences thyroid goiter or nodule during , we recommend that she be referred to endocrinology for evaluation and management. is not a contraindication to fine needle aspiration but should be handled at the discretion of the braille transcriber. If hypothyroidism is poorly controlled, consider weekly [...] -Vitamin D 800 IU daily -Calcium citrate 4456-8607 mg daily (better absorbed than calcium carbonate) [...] money to get more. Never true 12/02/2023 [place] Depression Scale Answer Date Recorded [place] Depression Scale Total 0 12/23/2023 The thought [...] 02/19/2024 4:15 PM EDT Office Visit Gynecology/Obstetrics [facility] [address] [place] [address] Kiah Morley, DNP, CNM [address] [facility] [place] [address] 03/03/2024 8:30 AM EDT Office Visit Six Color Press Operator Obstetrics Maternal Medicine, [place] [address] [place] [address] Dionna Murray, [address] [place] [address] 03/03/2024 8:30 AM EDT Imaging Radiology [facility], [place] [address] [place], [place] [phone] Scheduled Referrals Name Type Priority Associated Diagnoses [...] LAB BLOOD ORDERABLES LAB[facility]ORY [facility] [address] [place] [address] documented in this encounter Visit Diagnoses Diagnosis Supervision of high risk in first trimester- Primary Unspecified high-risk Hypothyroidism affecting in second trimester Previous gastric bypass affecting , antepartum Previous delivery, antepartum condition or complication Class 3 obesity (HCC) documented in this encounter Care Teams Machine Sprayer Relationship Specialty Start Date End Date Maldonado Latif CRNP [address] [facility] [address] [place] [address] PCP - General Nurse Practitioner 03/10/21 documented as of this encounter
--- OUTSIDE RECORDS SUMMARY | 2024-07-15 07:11 | External Medical Summary ---
Author Name Unknown Address Unknown Organization [id number] [address] [place] [address] Laboratory Report Ordering Provider Test Date Status RACHEL LOVING 01/20/2024 14:47:41 Final Observation Date Value Abnormality Reference (Units ) Status Glucose [Moles/volume] in Serum or Plasma --1 hour post 50 g glucose PO 01/20/2024 14:47:41 55 Below low normal 70-129 (mg/dL) Final Performing Location LABORATORY [facility] [place] [address] [place] [address]
--- OUTSIDE RECORDS SUMMARY | 2024-07-15 07:11 | External Medical Summary | Summary of Care ---
Author Name Unknown Organization [facility] Address [address] [place] [address] Phone [phone] Care Team Providers Care Insole And Heel Stiffener Name Role Phone Maldonado Latif Primary Care Provider Reason for Visit * Reason Comments Outpatient Testing Encounter Details Date Type Department Care Team (Late st Contact Info) Description 01/20/2024 1:30 PM EDT Laboratory Laboratory, [facility] [address] [place] [id number] [facility] [address] [place] [address] Obesity in , antepartum; Supervision of high risk in first trimester Allergies No known active allergiesdocumented as of this encounter (statuses as of 01/20/2024) Medications Medication Sig Dispensed Refills Start Date End Date Status Pediatric Uiojifen-Tttclpmw-H (FLINTSTONES COMPLETE) CHEW Take 1 Tab by mouth 2 times a day. 0 Active Levothyroxine Sodium 25 MCG Oral Tablet (Levo-T) Pt taking 125 mcg 0 07/12/2020 Active Vitamin D3 1.25 MG (85239 UT) Oral Capsule Take 1 Capsule by mouth once a week. 0 12/17/2023 Active Gummies 0.18-25 MG Oral Tablet Chewable Take by mouth. 0 Active documented as of this encounter (statuses as of 01/20/2024) Active Problems Problem Noted Date Diagnosed Date with 11 completed weeks gestation 12/13 Supervision of high risk in first [facility] [place] 12/23/2023 Obesity in , antepartum 12/23/2023 [...] baby Was seen in the past by [facility] Endocr[facility]ology (last visit 07/2020) Thyroid ultrasound [...] first trimester of . Refer back to [facility] if this occurs. She should continue to have growth assessments with MFM while she is clinically hypothyroid. If patient experiences thyroid goiter or nodule during , we recommend that she be referred to endocrinology for evaluation and management. is not a contraindication to fine needle aspiration but should be handled at the discretion of the filtration plant mechanic. If hypothyroidism is poorly controlled, consider weekly NSTs at 32 weeks. Previous gastric bypass affecting , ant epartum 12/23/2023 Overview: The patient is s/p laprascopic gastric bypass at [facility] on May 19, 2009. Last [...] -Vitamin D 800 IU daily -Calcium citrate 1373-8628 mg daily (better absorbed than calcium carbonate) [...] as of this encounter (statuses as of 01/20/2024) Resolved Problems Problem Noted Date Diagnosed Date [...] as of this encounter (statuses as of 01/20/2024) Immunizations Name Administration Dates Next Due HPV [...] money to get more. Never true 12/02/2023 Bushnell Depression Scale Answer Date Recorded Bushnell Depression Scale Total 0 12/23/2023 The thought [...] 02/19/2024 4:15 PM EDT Office Visit Gynecology/Obstetrics [facility] [address] [facility] [place] [address] Kiah Morley, JAKY, CNM [address] [place] [address] 03/03/2024 8:30 AM EDT Office Visit [place] Obstetrics Maternal Medicine, [place] [address] [place] [address] [facility] [address] [place] [address] 03/03/2024 8:30 AM EDT Imaging Radiology [facility], [place] [address] [place], [place] [phone] Pending Results Name Type Priority Associated Diagnoses Date /Time 50-G GESTATIONAL GLUCOSE, 1 HOUR Lab Routine Obesity in , antepartum 01/20/2024 2:47 PM EDT TSH WITH FREE T4 IF INDICATED Lab Routine Supervision of high risk in first trimester 01/20/2024 2:47 PM EDT Health Maintenance Due Date Last Done Comments Hepatitis B (1 of 3 - 19+ 3-dose series) 2009 HPV/Co-Test 2020 Depression Screening 09/20/2021 09/20/2020 COVID-19 Vaccine (2022-24 season) 2023 Influenza Vaccine (FLU shot) (#1) 2023 09/11/2018, 07/23/2016, 08/25/2014, Additional history exists Cervical Cancer Screening 09/22/2023 Pap Smear 09/22/2023 09/22/2020, 10/11, 10/18/2016, Additional history exists TSH 12/23/2024 12/23/2023, 08/12, 03/26/2019, Additional history exists DTaP,Tdap,and Td Vaccines (4 [...] encounter Visit Diagnoses Diagnosis Obesity in , antepartum Obesity complicating , childbirth, or the puerperium, antepartum condition or complication Supervision of high risk in first trimester Unspecified high-risk documented in this encounter Care Teams Insole And Heel Stiffener Relationship Specialty Start Date End Date Maldonado Latif CRNP [address] [facility] 2 [place] [address] PCP - General Nurse Practitioner 03/10/21 documented as of this encounter
[2024-07-15] MEDS: CITRIC ACID/SODIUM CITRATE 15 ML UDC PO SCH (07:19)
--- NOTE | 2024-07-15 07:34 | History & Physical Bridge Note ---
Date of Service July 15, 2024 History & Physical Bridge Note I have examined the patient, reviewed the History & Physical and in the interval since the performance of the History & Physical I have noted the following changes of clinical significance: no changes noted She was scheduled for Repeat Csection and BTL Bbay was breech until last week Bed side US: Carmen Discussed TOLAC/ Patient still desires Repeat Csection and BTL Patient understands C section is a major surgery, with risks including but not limited to bleeding , infection, injury to surrounding organs like bowels, bladder, ureters, adhesions, scarring, wound infection, blood cloths in legs/ lungs, longer recovery. Discussed non surgical reversible contraction options including IUD's, patient declined them all. All questions were answered. She signed an informed consent.
[2024-07-15] MEDS: ceFAZolin 3000MG 3,000 MG/72.5 ML BAG IV SCH (07:36)
[2024-07-15] MEDS ORDERED: NALOXONE HCL 0.4 MG/1 ML VIAL/CARP IV PRN (07:59)
[2024-07-15] MEDS ORDERED: LACTATED RINGER'S 500 ML IV PRN (07:59)
[2024-07-15] MEDS ORDERED: NALOXONE HCL 1 MG in SODIUM CHLORIDE 0.9% 1,000 ML IV PRN (07:59)
[2024-07-15] MEDS ORDERED: ePHEDrine sulfate 50 MG/ML AMP IV PRN (07:59)
[2024-07-15] MEDS ORDERED: HYDROmorphone INJ 0.5 MG/0.5 ML SYR IV PRN (07:59)
[2024-07-15] MEDS ORDERED: diphenhydrAMINE 50 MG/ML VIAL IV PRN (07:59)
[2024-07-15] MEDS ORDERED: NALBUPHINE HCL INJ 10 MG/ML AMP IV PRN (07:59)
[2024-07-15] MEDS ORDERED: MoRPHine SULFATE PF 1 MG/ML 10 ML AMP/VIAL INT SPINAL ONE (07:59)
[2024-07-15] MEDS ORDERED: KETOROLAC 30 MG/ML VIAL IV PRN (07:59)
[2024-07-15] MEDS ORDERED: NALOXONE HCL 0.08 MG in SYRINGE 1.8 ML IV PRN (07:59)
[2024-07-15] MEDS ORDERED: PROMETHAZINE 6.25 MG/50.25 ML BAG IV PRN (07:59)
[2024-07-15] MEDS ORDERED: NO NARCOTICS OR SEDATIVES SCH (08:00)
[2024-07-15] MEDS ORDERED: SODIUM CHLORIDE 0.9% 1,000 ML IV SCH (08:00)
[2024-07-15] MEDS ORDERED: DC INTRASPINAL MORPHINE SCH (08:00)
[2024-07-15] MEDS: miSOPROStoL 200 MCG TAB ONE (09:25)
[2024-07-15] MEDS ORDERED: BENZOCAINE 20% SPRY 85 APPLN/85 GM CAN EXT PRN (09:57)
[2024-07-15] MEDS ORDERED: MAGNESIUM HYDROXIDE SUSP 30 ML UDC PO PRN (09:57)
[2024-07-15] MEDS ORDERED: HYDROCORTISONE ACETATE 25 MG SUPP PR PRN (09:57)
[2024-07-15] MEDS ORDERED: CALCIUM CARBONATE 500 MG CHEWABLE TAB PO PRN (09:57)
[2024-07-15] MEDS ORDERED: SENNA 8.6 MG TAB PO PRN (09:57)
[2024-07-15] MEDS ORDERED: PROMETHAZINE 12.5 MG/50.5 ML BAG IV PRN (09:57)
[2024-07-15] MEDS: ONDANSETRON INJ 2 MG/ML 2 ML VIAL IV PRN (10:00)
[2024-07-15] MEDS ORDERED: IBUPROFEN 600 MG TAB PO SCH (10:00)
[2024-07-15] MEDS ORDERED: KETOROLAC 30 MG/ML VIAL IV SCH (10:00)
[2024-07-15] MEDS ORDERED: miSOPROStoL 200 MCG TAB PR ONE (10:09)
--- NOTE | 2024-07-15 10:13 | Anesthesiology Progress Note ---
Date of Service July 15, 2024 Anesthesia Post Procedure Vital Signs Vital Signs: Temp Pulse Resp BP Pulse Ox 07/15/24 10:11 72 97 07/15/24 10:06 69 97 07/15/24 10:03 83 96/53 L 07/15/24 10:01 97 H 95 07/15/24 09:58 74 106/53 L 07/15/24 09:56 69 97 07/15/24 09:51 80 97 07/15/24 09:46 70 96 07/15/24 09:43 71 97/53 L 07/15/24 09:41 73 99 07/15/24 09:36 70 97 07/15/24 09:35 36.5 C 18 07/15/24 09:35 67 94 07/15/24 09:31 77 98/54 L 97 07/15/24 07:16 36.7 C 18 07/15/24 05:51 36.6 C 79 18 105/57 L 07/15/24 05:43 79 105/57 L Transfer of Care Handoff Completed per policy Notes Mental Status: alert / awake / arousable and participated in evaluation Patient Amnestic to Procedure: No Nausea / Vomiting: adequately controlled Pain: adequately controlled Airway Patency, RR, SpO2: stable & adequate BP & HR: stable & adequate Hydration State: stable & adequate Neuraxial Anesthesia: was administered and sensory block is resolving Anesthetic Complications: no major complications apparent and Pt Satisfied with anesthetic care
--- NOTE | 2024-07-15 10:24 | Operative Report ---
Post Operative Report Pre & Post Diagnosis Operation Date: 07/15/24 07:45 <No data on this case meets the specified criteria> I identified the patient and participated in the time-out.: Yes Procedure Operation Date: 07/15/24 07:45 <No data on this case meets the specified criteria> Surgeon Dr Reilly Social Work Specialist Mendy Reyes PA-C Estimated Blood Loss 508 Findings Consistent with Post-Op Diagnosis Fluids Live infant in cephalic presentation. Mild meconium. both fallopian tubes and ovaries appeared nml. Very little adhesions from prior surgery Specimens Male infant, Placenta. left and right fallopian tubes Drains none Anesthesia Type Spinal Complications none Indications 34 yo prior c/sec and breech presentation at last office appointment. wanted to have repeat c/sec and permanent sterilization Description of Procedure Patient brought to the operating room Prepped and draped in normal sterile fashion in dorsal supine position with a leftward tilt. Time out is performed. Patient is identified by name and date of . Allergy and antibiotics and reviewed and confirmed. Skin check is performed to see if anesthesia is adequate A Pfannenstiel incision is made and carried out to the fascia with a scalpel. Fascia is incised in the midline extended laterally on both sides with Sims scissors. Sherlyn's were used to grab the superior part of the fascial incision and the rectus abdominis muscle dissected with Sims scissors.. Same procedure was performed on the lower section of the fascia. The rectus muscle is then in the midline and the peritoneum identified, tented up and entered sharply with the Metzenbaum scissors. The peritoneal incision was then extended superiorly and inferiorly with good visualization of the bladder. An Chi retractor was then inserted to provide better visualization and retraction. Vesicouterine peritoneum was identified, grasped with pickups and entered sharply with Metzenbaum scissors. The incision was then extended laterally and the bladder flap created with Metzenbaum scissors. The lower uterine segment incision was performed in a transverse fashion with a scalpel. Uterine incision was then extended laterally with the bandage scissors. Amniotomy is performed. Amniotic fluid is meconium stained The infant's head was delivered atraumatically. There is no nuchal l cord. Nose and mouth suctioned with the bulb suction. Delayed cord clamping performed and cord is then clamped and cut and infant is handed over to the waiting pediatric team. Cord blood and gases obtained The placenta is then removed manually the uterus is exteriorized and cleared of all clots and debris. Uterine incision it repaired with 0-Vicryl in a locking fashion. A second layer of 0-Vicryl is used to obtain excellent hemostasis. Uterus is placed back into the abdominal cavity. TUBAL LIGATION; Attention is paid to the tubal ligation part of the procedure. The left and right fallopian tube identified and followed from the fimbriated ends to the cornual regions. This is confirmed by both surgeon and service assistant. Both ovaries were examined and found was found to be grossly normal looking. A hand-held LigaSure device was used to transect the both fallopian tubes staying close to the fallopian tube in order to preserve the vascular integrity of the ovary. Fallopian tubes were sent to pathology. There was good hemostasis. The bladder flap was repaired in a running fashion with plain suture. Copious amount of irrigation was used to irrigate the abdomen. Gutters were cleared of all clots and debris . Hemostasis was obtained. The Chi retractor is removed as well as sponges or instruments in the abdomen. The rectus abdominis muscle was examined to ensure there no bleeding. The fascia was grasped with Reardan's and closed in a running. Both fascial layers are closed together using 1-PDS suture. Subcutaneous space is irrigated and hemostasis was confirmed. Subcutaneous space is approximated with plain suture. Skin is closed with guerline. The patient tolerated procedure well sponge just labs needle counts were correct x2 patient is sent to recovery in stable condition Pt has BMI; 52. Assistants was necessary for retraction and manipulation of instruments in order to provide for a safe operationI attest to the content of the Intraoperative Record and any orders documented therein. Any exceptions are noted below.
[2024-07-15] MEDS ORDERED: Nursing to Pharmacy Communication SCH ×2 (10:45→14:30)
[2024-07-15] MEDS: OXYTOCIN 20 UNITS/LR 1,002 ML IV SCH (10:51)
[2024-07-15] MEDS: SIMETHICONE 80 MG CHEW PO SCH (14:14)
[2024-07-15] MEDS: ACETAMINOPHEN 325 MG TAB PO SCH (14:17)
[2024-07-15] MEDS ORDERED: PANTOprazole 40 MG TAB PO PRN (14:36)
[2024-07-15] MEDS: DOCUSATE SODIUM 100 MG CAP PO SCH (21:10)
[2024-07-15] MEDS: DIPHTHER/TETAN/PERTUS Vaccine (Tdap, Adol/Adult) 0.5mL IM ONE (23:49)
[2024-07-16] MEDS ORDERED: diphenhydrAMINE 50 MG/ML VIAL IV PRN (02:00)
[2024-07-16] MEDS ORDERED: diphenhydrAMINE Capsule 25 MG CAP PO PRN (02:00)
[2024-07-16] MEDS ORDERED: HYDROmorphone INJ 0.5 MG/0.5 ML SYR IV PRN (02:00)
[2024-07-16] MEDS ORDERED: ONDANSETRON INJ 2 MG/ML 2 ML VIAL IV PRN (02:00)
[2024-07-16] MEDS: LEVOTHYROXINE SODIUM 125 MCG TABLET PO SCH (06:17)
[2024-07-16 06:51] LABS: Eosinophils # (auto) 0.09 K/uL (0.00-0.50); Eosinophils % (auto) 0.9 %; Hematocrit (blood only) 29.7 % (37.0-47.0); Hemoglobin 9.4 g/dl (12.0-16.0); Immature Granulocytes # (auto) 0.04 K/uL (0.01-0.20); Immature Granulocytes % (auto) 0.4 %; Lymphocytes % (auto) 21.9 %; Mean Corpuscular Hemoglobin 26.4 pg (25.0-34.0); Mean Corpuscular Hgb Conc 31.6 g/dL (32.0-36.0); Mean Corpuscular Volume 83.4 fL (80.0-100.0); Mean Platelet Volume 9.5 fL (9.4-12.4); Monocytes # (auto) 0.65 K/uL (0.11-0.59); Monocytes % (auto) 6.2 %; Neutrophils # (auto) 7.44 K/uL (1.40-6.50); Neutrophils % (auto) 70.6 %; Platelet Count 230 K/uL (130-400); RDW Coefficient of Variation 19.8 % (11.5-14.5); RDW Standard Deviation 59.1 fL (36.4-46.3); Red Blood Count 3.56 M/uL (4.20-5.40); White Blood Count 10.52 K/ul (4.8-10.8)
[2024-07-16] MEDS: MULTIVITAMIN CHEWABLE TAB PO SCH (07:41)
[2024-07-16] MEDS: PRENATAL VITAMIN 1 TAB PO SCH (07:41)
[2024-07-16] MEDS: FERROUS SULFATE 325 MG TAB PO SCH (07:41)
[2024-07-16] MEDS: oxyCODONE HCL IR 5 MG TAB (IMMEDIATE RELEASE) PO PRN (07:41)
--- NOTE | 2024-07-16 10:11 | Obstetrical Progress Note ---
Date of Service July 16, 2024 Subjective Ambulation: ambulating normally Voiding: no voiding problems Passing Gas:: Yes Diet Tolerance:: regular diet Lochia:: Small Feeding Type:: breast feeding Current Pain Level(1-10): 0 doing well Physical Exam Constitutional WD/WN, vitals as above Gastrointestinal (Abdomen) Inspection/Auscultation: abdomen normal to inspection incision c/d/i abdomen soft and non-tender. fundus firm below U Musculoskeletal Extremities: extremities normal to inspection Skin no rashes, warm and dry Neurologic patellar DTR's 2+ bilat, sensation intact Psychiatric A+Ox3, euthymic affect Results & Data Vital Signs (Past 12 Hours) Vital Signs Temp Pulse Resp BP Pulse Ox O2 Del Method 07/16/24 03:35 36.7 C 70 18 113/77 100 Room Air 07/16/24 01:55 18 96 07/16/24 00:55 16 98 07/15/24 23:55 18 100 07/15/24 23:13 36.7 C 20 92/60 L 07/15/24 22:55 18 99 Laboratory Results Laboratory Results - last 72 hr 07/15/24 07/16/24 05:45 06:26 WBC 9.45 10.52 RBC 4.25 3.56 L Hgb 11.3 L 9.4 L Hct 35.8 L 29.7 L MCV 84.2 83.4 MCH 26.6 26.4 MCHC 31.6 L 31.6 L RDW Std Deviation 59.2 H 59.1 H RDW Coeff of Mendy 19.9 H 19.8 H Plt Count 278 230 MPV 9.4 9.5 Immature Gran % (Auto) 0.4 Neut % (Auto) 70.6 Lymph % (Auto) 21.9 [place] % (Auto) 6.2 Eos % (Auto) 0.9 Baso % (Auto) 0.0 Neut # (Auto) 7.44 H Lymph # (Auto) 2.30 [place] # (Auto) 0.65 H Eos # (Auto) 0.09 Baso # (Auto) 0.00 Immature Gran # (Auto) 0.04 Treponema pallidum Ab Negative Blood Type O Positive Antibody Screen NEGATIVE Crossmatch See Detail
[2024-07-16] MEDS: CHOLECALCIFEROL 125 MCG (5,000 UNITS) TAB PO SCH (12:36)
[2024-07-16] MEDS: bisacodyL 5 MG TABEC PO SCH (20:22)
[2024-07-17 00:14] VITALS: PULSE 79; O2SAT 100
[2024-07-17 08:08] VITALS: RESP 16; TEMP 98.2
[2024-07-17 08:24] LABS: Hematocrit (blood only) 27.8 % (37.0-47.0); Hemoglobin 8.8 g/dl (12.0-16.0)
--- NOTE | 2024-07-17 08:48 | Obstetrical Progress Note ---
Date of Service July 17, 2024 Assessment & Plan Admission and Anticipated Discharge Date Admission Date: July 15, 2024 Subjective Patient is seen and examined. She feels well, no complaints. Pain is under control with oral meds. Ambulating without dizzinesss Voiding without difficulty Tolerating regular diet with out N&V Flatus + BM + Bleeding is minimal No fever/ chills/ CP/ SOB/ N&V/ Leg pain Breast feeding without problems Vital Signs Temp Pulse Resp BP Pulse Ox O2 Del Method 07/17/24 07:53 Room Air 07/17/24 07:53 36.8 C 79 16 128/84 100 Room Air 07/17/24 00:08 36.7 C 79 22 110/75 100 Room Air Lab Results 07/15/24 07/16/24 07/17/24 Range/Units 05:45 06:26 07:53 WBC 9.45 10.52 (4.8-10.8) K/ul RBC 4.25 3.56 L (4.20-5.40) M/uL Hgb 11.3 L 9.4 L 8.8 L (12.0-16.0) g/dl Hct 35.8 L 29.7 L 27.8 L (37.0-47.0) % MCV 84.2 83.4 (80.0-100.0) fL MCH 26.6 26.4 (25.0-34.0) pg MCHC 31.6 L 31.6 L (32.0-36.0) g/dL RDW Std Deviation 59.2 H 59.1 H (36.4-46.3) fL RDW Coeff of Mendy 19.9 H 19.8 H (11.5-14.5) % Plt Count 278 230 (130-400) K/uL MPV 9.4 9.5 (9.4-12.4) fL Immature Gran % (Auto) 0.4 % Neut % (Auto) 70.6 % Lymph % (Auto) 21.9 % [place] % (Auto) 6.2 % Eos % (Auto) 0.9 % Baso % (Auto) 0.0 % Neut # (Auto) 7.44 H (1.40-6.50) K/uL Lymph # (Auto) 2.30 (1.20-3.40) K/uL [place] # (Auto) 0.65 H (0.11-0.59) K/uL Eos # (Auto) 0.09 (0.00-0.50) K/uL Baso # (Auto) 0.00 (0.00-0.20) K/uL Immature Gran # (Auto) 0.04 (0.01-0.20) K/uL Treponema pallidum Ab Negative (Negative) Blood Type O Positive Antibody Screen NEGATIVE Crossmatch See Detail PE: General: Alert, orientedx3, NAD CVS: S1S2 RRR Lungs; CTAB Abd: soft, NT, ND, BS+, fundus firm, below Umbilicus Incision/ RICHARD dressing: Clean, dry, intact Perineum intact, Lochia rubra minimal Ext; NT, no edema AP: 34 yo s/p RC Section, bilateral salpingectomy, pod# 2 VSS Afebrile doing well Continue routine postop care Encourage ambulation, PO intake All questions were answered D/C home , f/u in office Results & Data Vital Signs (Past 12 Hours) Vital Signs Temp Pulse Resp BP Pulse Ox O2 Del Method 07/17/24 07:53 Room Air 07/17/24 07:53 36.8 C 79 16 128/84 100 Room Air 07/17/24 00:08 36.7 C 79 22 110/75 100 Room Air
[2024-07-17 09:17] VITALS: BP 103/69
[2024-07-17] MEDS ORDERED: IBUPROFEN 600 MG TAB PO PRN (09:57)
[2024-07-17] MEDS ORDERED: bisacodyL 10 MG SUPP PR PRN (09:57)
[2024-07-17] MEDS: ACETAMINOPHEN 325 MG TAB PO PRN (11:31)
== END 2024-07-17 12:06 | disposition home health service (06) | DRG 785 ==
LOC: 4S1 05:31 → EDSTATUS 07:30 → 4E2 12:18
PROC: M.PPTLD (2024-07-15 07:30)
DX: Z37.0 Single live birth; O77.0 Labor and delivery complicated by meconium in amniotic fluid; Z83.3 Family history of diabetes mellitus; Z30.2 Encounter for sterilization; O34.211 Maternal care for low transverse scar from previous cesarean delivery; Z3A.39 39 weeks gestation of pregnancy